=== PATIENT | male | born 1980 | race Caucasian/White ===

== ENCOUNTER 2017-10-20 14:30 | Outpatient (RCR) | payer OTHER, SELFPAY ==
--- NOTE | 2017-09-08 11:36 | OT.OP.EVAL ---
Visit Care Team Role Provider Type Coel Purcell MD Attending Provider Non-Staff Primary Care Provider Specialty: Family Practice Address: [address] [place] [address], [id number] Email: Occupational Therapy Initial Evaluation OT Outpatient Adult Evaluation Start: 09/07/17 15:05 Freq: Status: Active Protocol: Document 09/07/17 15:06 AMS (Rec: 09/07/17 15:31 AMS [email or web address]) General Information Referral Referring Physician Cole Purcell MD Reason for Referral 37 year-old male with CVA, right-sided hemiparesis Visit Information Visit Number N/A Plan of Care Dates 09/07/17- 11/30/17 Insurance Information Billing Code Limitations - see paper chart Identification Identification Confirmed Yes Medical Information Medical History Patient is a 37 year-old male referred to outpatient OT secondary to CVA with subsequent right-sided hemiparesis. Patient reported sudden onset of R UE and LE weakness August 21, 2017. At [facility] CT was completed which showed nothing. Thus, patient was transferred to [place] in [place], where he underwent a MRI which also did not show anything. Patient is being followed by a neurologist. Patient to have Lumbar MRI to rule out MS. Outpatient Medical History Form was completed by patient on date of initial evaluation; (+) for back pain, dizziness, hearing problems, zygomatic arch surgery, and stroke. R hand dominance was also indicated on form. Please refer to paper chart for additional details. Pt also listed medications on Health History form (Lipitor, Aspirin, Advair - for allergy induced asthma). Previous Therapy Previous Therapy/Therapies Yes: Outpt PT eval completed Current Therapy/Therapies Outpt PT; outpt FUEL OPERATOR evaluation scheduled for 09/08/17 Social Information Social History Patient resides with his and kids. 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 Therapy Pain Assessment Pain When Pain Assessed pre-tx Pain Present Pain Present Pain Reported Location Right Posterior Leg Scale Used 3-4/10 numeric scale Right Anterior Leg Scale Used 2-3/10 numeric scale Right Posterior Arm Scale Used 1/10 numeric scale Right Anterior Arm Scale Used 1-2/10 numeric scale Posterior Neck Scale Used 1-2/10 numeric scale ADLs Overall Ability Comments WFL w/ use of compensatory strategies. IADLs Overall Function Basic IADLs Mildly Impaired Comments Fatigue (taking naps); increased concentration Driving Driving Ability Independently driving. Reported increased focus on driving. 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 Skill Level Impaired Vocation Comments Reported increased fatigue ( naps after work on daily basis ); reported decreased motor coordination/planning w/ use of virtual reality based painting exercise; reported decreased ability to complete motor plans while teaching the class. Meaningful Activities Meaningful Abilities Impacted by fatigue. Impacted by balance. Increased concentration required. Skill Level Impaired Vision Vision Comments Denied any visual changes Range of Motion Upper Extremity/Lower Extremity Upper Extremity Functional Limits Within Functional Limits Neurological Assessment - Adult Coordination Finger to Nose Test R UE Impaired w/ movement and w/ stabilization Comments Joint Limb Matching - relative to Joint Sense (UE Limb Matching) 5/5 trials Jerky movements observed w/ R UE w/ Slow Movements. Some asymmetry also noted with coordinating UEs; R moving faster than left. Sensation Assessment Comments Summary Comments Patient reports abnormal sensation of the right upper extremity; reported 'heaviness ' and sensation of 'increase in temperature of the right arm even though to the touch it was cold'. Patient reports R LE worse than R UE relative to sensation. Patient denied change in ability to sense pain, light touch, or temperature (when compared to PLOF). Fine Motor Handedness Hand Preference Right Hand Use Consistency Within Tasks Right Scale 100% Hand Use Consistency Across Tasks Right Scale 100% Hand Fatigue Yes Release of Objects Right Observations Increased focus required w/ motor planning w/ right UE. (+ ) fatigue reported and observed w/ > 5 reps Reaching for Objects Observations Increased focus required w/ motor planning w/ right UE. (+ ) fatigue reported and observed w/ > 5 reps Motor Planning Level of Impairment 25% Impaired Handwriting Pencil Grasp Minimally Impaired Comments Increased focus required w/ motor planning Writes First Name Yes Writes Last Name Yes All upper case letters are formed Yes correctly Numbers 1-10 are formed correctly Yes Letters are oriented correctly on the 100% of the time lines Letters are legible 100% of the time Paper stabilization with contralateral Yes: WNL hand Functional Wrist/Hand Scan Hand Side [id number] Thumb to All Fingers Pinch Yes/No Yes Comment WFL with and without visual feedback; slightly off B w/ 4/ 5 digits Shoulder Strength Shoulder Manual Muscle Testing Left Flexion 5 Normal Extension 5 Normal Abduction (C5) 5 Normal Adduction 5 Normal External Rotation 5 Normal Internal Rotation 5 Normal Right Flexion 4 Good Extension 4 Good Abduction (C5) 4 Good Adduction 4+ Good+ External Rotation 3+ Fair+ Internal Rotation 4 Good Global Risk Management Director/Hand Strength Global Risk Management Director/Hand Strength Left Global Risk Management Director Dynamometer II 106.0 Comments 35-39 year-old males = 112.9 + /- 21.7 Interpretation = Slightly below the mean when compared to same-aged male peers Right Global Risk Management Director Dynamometer II 67.3 Comments 35-39 year-old males = 119.7 + /- 24.0 Interpretation = 2 SD below the mean when compared to same -aged male peers Goals Treatment Treatment HEP established. Written instructions provided. Patient denied questions. Focus on functional motor planning w/ use of work tools w/ and without visual feedback, as well as functional motor planning of the right upper extremity while engaged in conversations w/ family members (children, ). Short Term Goals Short Term Goals 1. Patient will average > 95.7 pounds of force with the right hand with dynamometer testing. 2. Patient will be able to execute symmetrical, smooth motor movements of the upper extremities x 10 trials ( taking 5 seconds or more to move upper extremities outwards and 5 seconds or more to move upper extremities inwards) without errors and/or use of compensatory strategies. [facility] Goals Hardware Sales Assistant Goals 1. Based on patient's verbal report, patient will be able to complete all vocational tasks without difficulty which require motor planning of the right upper extremity (e.g., virtual spray painting of airplane). 2. 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 3. MMT 5/5 Right Shoulder ER 4. MMT 5/5 Right Shoulder Abduction 5. MMT 5/5 Right Shoulder Adduction 6. MMT 5/5 Right Shoulder Flexion 7. MMT 5/5 Right Shoulder Extension 8. MMT 5/5 Right IR 9. Patient will be mod I with HEP. Assessment/Plan Assessment Patient Response Good Rehabilitation Potential Good Impairments Identified Balance Coordination/Dexterity Functional Activities Motor Function Pain Weakness Recreational Activities Meaningful Activities Stiffness Work Capacity Motor Planning Eye-Hand Coordination Additional Impairments Identified Executive function skills Treatment Assessment Patient is a 37 year-old male referred to outpatient OT secondary to CVA with subsequent right-sided hemiparesis. PMH: (+) for back pain, dizziness, hearing problems, zygomatic arch surgery, and stroke. R hand dominant. PLOF: Independent with all BADLS and IADLS. Findings: Decreased right upper extremity strength; decreased right filter cleaner strength; decreased motor planning of the right UE; decreased kinesthetic awareness of right upper extremity; fatigue; decreased activity tolerance; pain/discomfort of posterior neck and right upper and lower extremities; abnormal sensation of the right upper extremity; and decreased functional independence when compared to prior level of function. Outpatient OT recommended to address the above areas to maximize patient's success and efficiency with active participation in meaningful day-to-day activities in the home, community, and work environments. Home Exercise Program HEP established. Written instructions provided. Patient denied questions. Focus on functional motor planning w/ use of work tools w/ and without visual feedback, as well as functional motor planning of the right upper extremity while engaged in conversations w/ family members (children, ). Reviewed with Patient Goals Home Exercise Program Patient Understanding Good Plan Comment 12 weeks Comment Once every 2 weeks; increase as needed Therapeutic Contents Client Education Cognitive Skills Development Functional Activities Home Exercise Program Manual Therapy Education Neurodevelopment Treatment Neuromuscular Re-Education Self-Care Stretching/Flexibility Activities Therapeutic Activities Therapeutic Exercises Modalities Modalities As Needed As Described Patient Instruction Home Exercise Program Plan of Care Questions/Concerns Other Comment Consult w/ outpt PT and FUEL OPERATOR Please Sign and Return: I have reviewed this Plan of Care and certify that the skilled therapy services above are required to meet the patient?s needs. Physician Signature Date Printed Name and Credentials Clinical Instructor Signature Printed Name and Credentials
--- NOTE | 2017-09-21 09:21 | OT.OP.TRT ---
Visit Care Team Role Provider Type Cole Purcell MD Attending Provider Non-Staff Primary Care Provider Specialty: Family Practice Address: [address] [place] [address], [id number] Email: Occupational Therapy Treatment Note OT Outpatient Treatment Note - Adult Start: 09/07/17 15:05 Freq: Status: Active Protocol: Document 09/20/17 15:38 AMS (Rec: 09/20/17 15:39 AMS [email or web address]) OT Outpatient Adult Treatment Note Session Time Visit Start Time 14:35 Visit Stop Time 15:20 Total Visit Minutes 45 Visit Information Visit Number N/A Plan of Care Dates 09/07/17- 11/30/17 Insurance Information Billing Code Limitations - see paper chart Setting Treatment Setting Outpatient Care Visit Type Note Type Treatment Note General Information General Information Patient is a 37 year-old male referred to outpatient OT secondary to CVA with subsequent right-sided hemiparesis. MH: (+) for back pain, dizziness, hearing problems, zygomatic arch surgery, and stroke. R hand dominant. PLOF: Independent with all BADLS and IADLS. - Subjective Identification Type Name Identification Reconciled With Medical Record Observations I haven't been taking naps lately. I have been working with the 3D oil painter and it seems to be getting better. This arm is just weak per pt. I am still waiting to get a phone call about my brace. Patient/Caregiver Compliance with Home Good Exercise Program - Objective Objective Measurements Please see below for progress towards meeting established OT goals. Improving coordination noted w/ finger taps w/ and without visual feedback; (-) errors noted on this date w/ increased speed x 5 cycles. Continued fatigue and increased concentration w/ motor planning of the R UE; decreased R UE strength, as noted at time of evaluation. Upgraded HEP. Short Term Goals 1. Patient will average > 95.7 pounds of force with the right hand with dynamometer testing. 2. Patient will be able to execute symmetrical, smooth motor movements of the upper extremities x 10 trials ( taking 5 seconds or more to move upper extremities outwards and 5 seconds or more to move upper extremities inwards) without errors and/or use of compensatory strategies. 09/20/17= 25% met Mcfp Goals 1. Based on patient's verbal report, patient will be able to complete all vocational tasks without difficulty which require motor planning of the right upper extremity (e.g., virtual spray painting of airplane). 09/20/17= 25% met 2. 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 09/20/17= 25% met 3. MMT 5/5 Right Shoulder ER 4. MMT 5/5 Right Shoulder Abduction 5. MMT 5/5 Right Shoulder Adduction 6. MMT 5/5 Right Shoulder Flexion 7. MMT 5/5 Right Shoulder Extension 8. MMT 5/5 Right IR 9. Patient will be mod I with HEP. - Treatment 3 Descriptor HEP written and visual instructions provided sh abd hor abd & ER recommended continue w/ hor abd/flies supine Complexity Upgraded 2 Descriptor Motor planning - limb awareness 1 Descriptor Eye-hand coordination - Trampoline w/ 500 gram ball 2 sets of 10 each exercise R <-> L R square CW CCW R --> L <-> R pattern L throw R catch Completed in frontal plane and w/ body turned 90 degrees L Exercises 5 Descriptor Body blade (small size) In front (10 sec) To the R (10 sec) Moving w/ sh abd Moving w/ sh flex Side Right Body Position Standing Sets 1 Repetitions 3 4 Descriptor Hor Abd Side Right Body Position Sitting Sets 1 Repetitions 10 Resistance 3# DB 3 Descriptor Hor Abd & ER Side Right Body Position Sitting Sets 2 Repetitions 10 Resistance 3# DB 2 Descriptor Sh Abduction Side Right Body Position Sitting Sets 2 Repetitions 10 Resistance 3# DB 1 Descriptor Arm pulleys Side Both Body Position Sitting Time 3 minutes - Assessment Patient Response to Treatment Good Rehab Potential Good Impairments Identified Balance Body Mechanics Coordination/Dexterity Flexibility Functional Activities Motor Function Weakness Range of Motion Recreational Activities Meaningful Activities Stiffness Motor Planning Eye-Hand Coordination Assessment of Overall Progress Improving Assessment of Improvement Improving fine motor planning and awareness of fingers in space; this is evidenced by no errors w/ finger taps w/ no visual feedback provided. Decreased UE strength noted and continued need to concentrate particularly w/ motor planning of the R UE to the right of the body. HEP upgraded on this date and pt denied questions. Home Exercise Program Written and visual instructions provided. Upgraded HEP. HEP to include strengthening (sh abd, hor abd & ER, hor abd). Recommend continued use of 3D oil painter at work w/ focus on use to right of body. Reviewed with Patient/Caregiver Goals Progress Being Made Home Exercise Program Patient/Caregiver Understanding Good - Plan Therapy Recommendations Continue with Current Program Advance per Rehabilitation Protocol Additional Therapy Recommendations Consult w/ PT & DIRECT MARKETING MANAGER
--- NOTE | 2017-10-04 15:32 | OT.OP.TRT ---
Visit Care Team Role Provider Type Cole Purcell MD Attending Provider Non-Staff Primary Care Provider Specialty: Family Practice Address: [address] [place] [address], [id number] Email: Occupational Therapy Treatment Note OT Outpatient Treatment Note - Adult Start: 09/07/17 15:05 Freq: Status: Active Protocol: Document 10/04/17 15:05 AMS (Rec: 10/04/17 15:32 AMS [email or web address]) OT Outpatient Adult Treatment Note Session Time Visit Start Time 14:35 Visit Stop Time 15:15 Total Visit Minutes 40 Visit Information Visit Number N/A Plan of Care Dates 09/07/17- 11/30/17 Insurance Information Billing Code Limitations - see paper chart Setting Treatment Setting Outpatient Care Visit Type Note Type Treatment Note General Information General Information Patient is a 37 year-old male referred to outpatient OT secondary to CVA with subsequent right-sided hemiparesis. PMH: (+) for back pain, dizziness, hearing problems, zygomatic arch surgery, and stroke. R hand dominant. PLOF: Independent with all BADLS and IADLS. - Subjective Identification Type Name Identification Reconciled With Medical Record Observations My left arm is still helping my right arm without push-ups per Shiva. 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 Patient/Caregiver Compliance with Home Good Exercise Program - Objective Objective Measurements Please see below for progress towards meeting established OT goals. Improving right UE strength. Upgraded HEP and therapeutic exercises. Clearance Cutter/Hand Strength Clearance Cutter/Hand Strength Right Clearance Cutter Dynamometer II 77.7 Comments Interpretation = 2 SD below the mean when compared to same -aged male peers *Initial = 67.3# of force 35-39 year-old males = 119.7 + /- 24.0 Interpretation = 2 SD below the mean when compared to same -aged male peers Short Term Goals 1. Patient will average > 95.7 pounds of force with the right hand with dynamometer testing. 10/04/17= avg 77.7# of force w/ R hand 2. Patient will be able to execute symmetrical, smooth motor movements of the upper extremities x 10 trials ( taking 5 seconds or more to move upper extremities outwards and 5 seconds or more to move upper extremities inwards) without errors and/or use of compensatory strategies. 09/20/17= 25% met Rn Building Goals 1. Based on patient's verbal report, patient will be able to complete all vocational tasks without difficulty which require motor planning of the right upper extremity (e.g., virtual spray painting of airplane). 10/04/17= 50% met 2. 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 10/04/17= 50% met 3. MMT 5/5 Right Shoulder ER 4. MMT 5/5 Right Shoulder Abduction 5. MMT 5/5 Right Shoulder Adduction 6. MMT 5/5 Right Shoulder Flexion 7. MMT 5/5 Right Shoulder Extension 8. MMT 5/5 Right IR 9. Patient will be mod I with HEP. 10/04/17= HEP upgraded - Treatment 3 Descriptor HEP Dynamic body weight exercises Chair dips (L <-> R) Shoulder plank weight shift Shoulder plank box Shoulder plank box w/ bosu Side plank R Bosu plank stabilization 2 x 10 Complexity Upgraded 1 Descriptor Eye-hand coordination - Trampoline Seated R <--> L w/ R hand 1000 gm 3 x 10 Square w/ R hand 500 gm 2 x 10 ; 1000 gm 1 x 10 Complexity Upgraded Exercises 6 Descriptor Chair dips (L <-> R) 1 x 10 Shoulder plank weight shift 1 x 10 Shoulder plank box 1 x 10 Shoulder plank box w/ bosu 1 x 5 Side plank 1 x 5 Bosu plank stabilization 2 x 10 Complexity Upgraded 1 Descriptor UEB Side Right Body Position Sitting Time 4 minutes; 1 minute Both Complexity Upgraded - Assessment Patient Response to Treatment Good Rehab Potential Good Impairments Identified Balance Body Mechanics Coordination/Dexterity Flexibility Functional Activities Motor Function Weakness Range of Motion Recreational Activities Meaningful Activities Stiffness Motor Planning Eye-Hand Coordination Assessment of Overall Progress Improving Assessment of Improvement Improving activity tolerance; this is evidenced by not ' needing to take naps anymore'. 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 Improving right UE strength, as evidenced by increased attempts at push-ups in the home environment; however, increased reliance on L UE for body weight exercises. Initiated exercises to support active engagement of R UE in exercises and increased weight bearing onto the right UE. Home Exercise Program HEP. Refer to treatment section of note for additional details. Patient denied questions. Reviewed with Patient/Caregiver Goals Progress Being Made Home Exercise Program Patient/Caregiver Understanding Good - Plan Therapy Recommendations Continue with Current Program Advance per Rehabilitation Protocol Additional Therapy Recommendations Consult w/ PT & BIAS CUTTER
--- NOTE | 2017-10-20 15:52 | OT.OP.TRT ---
Visit Care Team Role Provider Type Cole Purcell MD Attending Provider Non-Staff Primary Care Provider Specialty: Family Practice Address: [address] [place] [address], [id number] Email: Occupational Therapy Treatment Note OT Outpatient Treatment Note - Adult Start: 09/07/17 15:05 Freq: Status: Active Protocol: Document 10/20/17 15:29 AMS (Rec: 10/20/17 15:51 AMS [email or web address]) OT Outpatient Adult Treatment Note Session Time Visit Start Time 14:30 Visit Stop Time 15:18 Total Visit Minutes 48 Visit Information Visit Number N/A Plan of Care Dates 09/07/17- 11/30/17 Insurance Information Billing Code Limitations - see paper chart Setting Treatment Setting Outpatient Care Visit Type Note Type Treatment Note General Information General Information Patient is a 37 year-old male referred to outpatient OT secondary to CVA with subsequent right-sided hemiparesis. PMH: (+) for back pain, dizziness, hearing problems, zygomatic arch surgery, and stroke. R hand dominant. PLOF: Independent with all BADLS and IADLS. - Subjective Identification Type Name Identification Reconciled With Medical Record Observations I am able to do 18 to 20 push -ups now before having to stop . I feel as if it is partly my core that prevents me from doing more push-ups per Shiva. PT is working on my balance and knowing where I am without my vision. Patient/Caregiver Compliance with Home Good Exercise Program - Objective Objective Measurements Please see below for progress towards meeting established OT goals. Improving right UE strength. Improving trunk/core strength from time of initial evaluation. Per patient, he is able to maintain each plank position x 1 minute prior to fatigue and complete 18 to 20 push-ups prior to fatigue. Patient is executing push-ups, planks, overhead tricep extension, tricep kickbacks, bicep curls, bench press, flies, sh flexion and sh abduction. Patient denied execution of ER, posterior deltoid, or shoulder press exercises at this time. Upgraded HEP to address these areas. Short Term Goals 1. Patient will average > 95.7 pounds of force with the right hand with dynamometer testing. 10/04/17= avg 77.7# of force w/ R hand 2. Patient will be able to execute symmetrical, smooth motor movements of the upper extremities x 10 trials ( taking 5 seconds or more to move upper extremities outwards and 5 seconds or more to move upper extremities inwards) without errors and/or use of compensatory strategies. 10/20/17= 50% met 3. Patient will be able to execute 25 standard push-ups without rest breaks as observed on 1 treatment session, without complaints of pain/discomfort and/or use of compensatory strategies. 10/20= 50% met [facility] Assistant Director Goals 1. Based on patient's verbal report, patient will be able to complete all vocational tasks without difficulty which require motor planning of the right upper extremity (e.g., virtual spray painting of airplane). 10/20/17= 50% met 2. 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 10/20/17= 50% met 3. MMT 5/5 Right Shoulder ER. 10/20/17= 25% met 4. MMT 5/5 Right Shoulder Abduction. 10/20/17= 25% met 5. MMT 5/5 Right Shoulder Adduction. 10/20/17= 50% met 6. MMT 5/5 Right Shoulder Flexion. 10/20/17= 50% met 7. MMT 5/5 Right Shoulder Extension. 10/20/17= 50% met 8. MMT 5/5 Right IR. 10/20/17= 50% met 9. Patient will be mod I with HEP. 10/20/17= HEP upgraded - Treatment 3 Descriptor HEP ER w/ sh press Trunk flex w/ 't' Plank - 1 leg/movement Complexity Upgraded 2 Descriptor Motor planning - limb awareness 1 Descriptor Eye-hand coordination - Trampoline Seated R <--> L w/ R hand 1000 gm 3 x 10 Square w/ R hand 500 gm 2 x 10 ; 1000 gm 1 x 10 Complexity Upgraded Exercises 6 Descriptor Plank-1 leg 1x5 Bosu Plank Box 2x10 Ther Ball push-ups 2x10 Complexity Upgraded 3 Descriptor Hor Abd & ER w/ Sh Press Side Both Body Position Standing Sets 4 Repetitions 5 Time 15# DB each Complexity Upgraded 2 Descriptor Post Delt 't' w/ trunk flex Side Both Body Position Standing Sets 1 Repetitions 10 Resistance 15# DB each Complexity Upgraded 1 Descriptor UEB Side Both Body Position Sitting Time x 5 minutes Complexity No Change - Assessment Patient Response to Treatment Good Rehab Potential Good Impairments Identified Balance Body Mechanics Coordination/Dexterity Flexibility Functional Activities Motor Function Weakness Range of Motion Recreational Activities Meaningful Activities Stiffness Motor Planning Eye-Hand Coordination Assessment of Overall Progress Improving Assessment of Improvement Overall improving trunk/core and R UE strength compared to initial evaluation. However, decreased trunk/core and R UE strength when compared to PLOF . Decreased R UE strength out of typical UE kylee pattern; thus, education completed and new exercises introduced to address these areas of weakness. Per patient, decreased trunk/core strength impacting ability to execute push-ups > 18 to 20 in the home environment. Discussed additional options to address trunk/core in plank position with decreasing LE MAKSIM and moving outside of MAKSIM, as well as tucking of knees w/ therapeutic ball. Home Exercise Program HEP. Refer to treatment section of note for additional details. Patient denied questions. Reviewed with Patient/Caregiver Goals Progress Being Made Home Exercise Program Patient/Caregiver Understanding Good - Plan Therapy Recommendations Continue with Current Program Advance per Rehabilitation Protocol Additional Therapy Recommendations Consult w/ PT & BRAKE REPAIR MECHANIC
--- NOTE | 2017-12-03 08:05 | OT.OP.DC ---
Visit Care Team Role Provider Type Cole Purcell MD Attending Provider Non-Staff Primary Care Provider Address: [address] [place] [address], [place], [address] Email: OT Outpatient OT Outpatient Adult Evaluation Start: 09/07/17 15:05 Freq: Status: Active Protocol: Document 09/07/17 15:06 AMS (Rec: 09/07/17 15:31 AMS [email or web address]) General Information Visit Information Visit Number N/A Plan of Care Dates 09/07/17- 11/30/17 Insurance Information Billing Code Limitations - see paper chart Referral Referring Physician Cole Purcell MD Reason for Referral 37 year-old male with CVA, right-sided hemiparesis Identification Identification Confirmed Yes Medical Information Medical History Patient is a 37 year-old male referred to outpatient OT secondary to CVA with subsequent right-sided hemiparesis. Patient reported sudden onset of R UE and LE weakness August 21, 2017. At [facility] CT was completed which showed nothing. Thus, patient was transferred to [place] in [facility] where he underwent a MRI which also did not show anything. Patient is being followed by a neurologist. Patient to have Lumbar MRI to rule out MS. Outpatient Medical History Form was completed by patient on date of initial evaluation; (+) for back pain, dizziness, hearing problems, zygomatic arch surgery, and stroke. R hand dominance was also indicated on form. Please refer to paper chart for additional details. Pt also listed medications on Health History form (Lipitor, Aspirin, Advair - for allergy induced asthma). Previous Therapy Previous Therapy/Therapies Yes: Outpt PT eval completed Current Therapy/Therapies Outpt PT; outpt CABLE SYSTEMS INSTALLER evaluation scheduled for 09/08/17 Social Information Social History Patient resides with his and kids. 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 Therapy Pain Assessment Pain When Pain Assessed pre-tx Pain Present Pain Present Pain Reported Location Right Posterior Leg Scale Used 3-4/10 numeric scale Right Anterior Leg Scale Used 2-3/10 numeric scale Right Posterior Arm Scale Used 1/10 numeric scale Right Anterior Arm Scale Used 1-2/10 numeric scale Posterior Neck Scale Used 1-2/10 numeric scale ADLs Overall Ability Comments WFL w/ use of compensatory strategies. IADLs Overall Function Basic IADLs Mildly Impaired Comments Fatigue (taking naps); increased concentration Driving Driving Ability Independently driving. Reported increased focus on driving. 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 Skill Level Impaired Vocation Comments Reported increased fatigue ( naps after work on daily basis ); reported decreased motor coordination/planning w/ use of virtual reality based painting exercise; reported decreased ability to complete motor plans while teaching the class. Meaningful Activities Meaningful Abilities Impacted by fatigue. Impacted by balance. Increased concentration required. Skill Level Impaired Vision Vision Comments Denied any visual changes Range of Motion Upper Extremity/Lower Extremity Upper Extremity Functional Limits Within Functional Limits Neurological Assessment - Adult Coordination Finger to Nose Test R UE Impaired w/ movement and w/ stabilization Comments Joint Limb Matching - relative to Joint Sense (UE Limb Matching) 5/5 trials Jerky movements observed w/ R UE w/ Slow Movements. Some asymmetry also noted with coordinating UEs; R moving faster than left. Sensation Assessment Comments Summary Comments Patient reports abnormal sensation of the right upper extremity; reported 'heaviness ' and sensation of 'increase in temperature of the right arm even though to the touch it was cold'. Patient reports R LE worse than R UE relative to sensation. Patient denied change in ability to sense pain, light touch, or temperature (when compared to PLOF). Fine Motor Handedness Hand Preference Right Hand Use Consistency Within Tasks Right Scale 100% Hand Use Consistency Across Tasks Right Scale 100% Hand Fatigue Yes Release of Objects Right Observations Increased focus required w/ motor planning w/ right UE. (+ ) fatigue reported and observed w/ > 5 reps Reaching for Objects Observations Increased focus required w/ motor planning w/ right UE. (+ ) fatigue reported and observed w/ > 5 reps Motor Planning Level of Impairment 25% Impaired Handwriting Pencil Grasp Minimally Impaired Comments Increased focus required w/ motor planning Writes First Name Yes Writes Last Name Yes All upper case letters are formed Yes correctly Numbers 1-10 are formed correctly Yes Letters are oriented correctly on the 100% of the time lines Letters are legible 100% of the time Paper stabilization with contralateral Yes: WNL hand Functional Wrist/Hand Scan Hand Side [id number] Thumb to All Fingers Pinch Yes/No Yes Comment WFL with and without visual feedback; slightly off B w/ 4/ 5 digits Goals Treatment Treatment HEP established. Written instructions provided. Patient denied questions. Focus on functional motor planning w/ use of work tools w/ and without visual feedback, as well as functional motor planning of the right upper extremity while engaged in conversations w/ family members (children, ). Short Term Goals Short Term Goals 1. Patient will average > 95.7 pounds of force with the right hand with dynamometer testing. 2. Patient will be able to execute symmetrical, smooth motor movements of the upper extremities x 10 trials ( taking 5 seconds or more to move upper extremities outwards and 5 seconds or more to move upper extremities inwards) without errors and/or use of compensatory strategies. Mcfp Goals Mcfp Goals 1. Based on patient's verbal report, patient will be able to complete all vocational tasks without difficulty which require motor planning of the right upper extremity (e.g., virtual spray painting of airplane). 2. 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 3. MMT 5/5 Right Shoulder ER 4. MMT 5/5 Right Shoulder Abduction 5. MMT 5/5 Right Shoulder Adduction 6. MMT 5/5 Right Shoulder Flexion 7. MMT 5/5 Right Shoulder Extension 8. MMT 5/5 Right IR 9. Patient will be mod I with HEP. Assessment/Plan Assessment Patient Response Good Rehabilitation Potential Good Impairments Identified Balance Coordination/Dexterity Functional Activities Motor Function Pain Weakness Recreational Activities Meaningful Activities Stiffness Work Capacity Motor Planning Eye-Hand Coordination Additional Impairments Identified Executive function skills Treatment Assessment Patient is a 37 year-old male referred to outpatient OT secondary to CVA with subsequent right-sided hemiparesis. PMH: (+) for back pain, dizziness, hearing problems, zygomatic arch surgery, and stroke. R hand dominant. PLOF: Independent with all BADLS and IADLS. Findings: Decreased right upper extremity strength; decreased right web site administrator strength; decreased motor planning of the right UE; decreased kinesthetic awareness of right upper extremity; fatigue; decreased activity tolerance; pain/discomfort of posterior neck and right upper and lower extremities; abnormal sensation of the right upper extremity; and decreased functional independence when compared to prior level of function. Outpatient OT recommended to address the above areas to maximize patient's success and efficiency with active participation in meaningful day-to-day activities in the home, community, and work environments. Home Exercise Program HEP established. Written instructions provided. Patient denied questions. Focus on functional motor planning w/ use of work tools w/ and without visual feedback, as well as functional motor planning of the right upper extremity while engaged in conversations w/ family members (children, ). Reviewed with Patient Goals Home Exercise Program Patient Understanding Good Plan Comment 12 weeks Comment Once every 2 weeks; increase as needed Therapeutic Contents Client Education Cognitive Skills Development Functional Activities Home Exercise Program Manual Therapy Education Neurodevelopment Treatment Neuromuscular Re-Education Self-Care Stretching/Flexibility Activities Therapeutic Activities Therapeutic Exercises Modalities Modalities As Needed As Prescribed Patient Instruction Home Exercise Program Plan of Care Questions/Concerns Other Comment Consult w/ outpt PT and CABLE SYSTEMS INSTALLER Sensory Assessment Sensory Profile2 OT Outpatient Muscle Testing Start: 09/07/17 15:05 Freq: Status: Active Protocol: Document 12/03/17 08:02 AMS (Rec: 12/03/17 08:05 AMS [email or web address]) Shoulder Strength Shoulder Manual Muscle Testing Left Flexion 5 Normal Extension 5 Normal Abduction (C5) 5 Normal Adduction 5 Normal External Rotation 5 Normal Internal Rotation 5 Normal Right Flexion 4 Good Extension 4 Good Abduction (C5) 4 Good Adduction 4+ Good+ External Rotation 3+ Fair+ Internal Rotation 4 Good Packaging Machine Supplies Distributor/Hand Strength Packaging Machine Supplies Distributor/Hand Strength Left Packaging Machine Supplies Distributor Dynamometer II 106.0 Comments 35-39 year-old males = 112.9 + /- 21.7 Interpretation = Slightly below the mean when compared to same-aged male peers Right Packaging Machine Supplies Distributor Dynamometer II 77.7 Comments Interpretation = 2 SD below the mean when compared to same -aged male peers *Initial = 67.3# of force 35-39 year-old males = 119.7 + /- 24.0 Interpretation = 2 SD below the mean when compared to same -aged male peers OT Outpatient Treatment Note - Adult Start: 09/07/17 15:05 Freq: Status: Active Protocol: Document 12/03/17 08:02 AMS (Rec: 12/03/17 08:05 AMS [email or web address]) OT Outpatient Adult Treatment Note Setting Treatment Setting Outpatient Care Visit Type Note Type Discharge Summary General Information General Information Patient is a 37 year-old male referred to outpatient OT secondary to CVA with subsequent right-sided hemiparesis. PMH: (+) for back pain, dizziness, hearing problems, zygomatic arch surgery, and stroke. R hand dominant. PLOF: Independent with all BADLS and IADLS. - Subjective Observations Discharge per patient request. - Objective Short Term Goals DISCHARGE PER PATIENT REQUEST. ALL GOALS DISCHARGED. 1. Patient will average > 95.7 pounds of force with the right hand with dynamometer testing. 10/04/17= avg 77.7# of force w/ R hand 2. Patient will be able to execute symmetrical, smooth motor movements of the upper extremities x 10 trials ( taking 5 seconds or more to move upper extremities outwards and 5 seconds or more to move upper extremities inwards) without errors and/or use of compensatory strategies. 10/20/17= 50% met 3. Patient will be able to execute 25 standard push-ups without rest breaks as observed on 1 treatment session, without complaints of pain/discomfort and/or use of compensatory strategies. 10/20= 50% met Quality Assurance Supervisor Chassis Goals DISCHARGE PER PATIENT REQUEST. ALL GOALS DISCHARGED. 1. Based on patient's verbal report, patient will be able to complete all vocational tasks without difficulty which require motor planning of the right upper extremity (e.g., virtual spray painting of airplane). 10/20/17= 50% met 2. 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 10/20/17= 50% met 3. MMT 5/5 Right Shoulder ER. 10/20/17= 25% met 4. MMT 5/5 Right Shoulder Abduction. 10/20/17= 25% met 5. MMT 5/5 Right Shoulder Adduction. 10/20/17= 50% met 6. MMT 5/5 Right Shoulder Flexion. 10/20/17= 50% met 7. MMT 5/5 Right Shoulder Extension. 10/20/17= 50% met 8. MMT 5/5 Right IR. 10/20/17= 50% met 9. Patient will be mod I with HEP. 10/20/17= HEP upgraded - - Assessment Assessment of Improvement Discharge from outpatient OT per patient request. Appropriate discharge paperwork to be completed. Therapist to follow-up as appropriate/as deemed necessary by patient's PCP. - Plan Therapy Recommendations Discharge from Occupational Therapy Additional Therapy Recommendations d/c per patient request
== END 2018-02-22 10:36 ==
LOC: OT 14:30
PROVIDERS: PCP General Practice; Visit Provider General Practice
DX: I63.9 Cerebral infarction, unspecified (principal)
CPT/HCPCS: 97110; 97112; 97165; 97530

== ENCOUNTER 2017-10-20 15:30 | Outpatient (RCR) | payer OTHER, SELFPAY | END 2017-10-21 11:06 | LOC: SP 15:30 | PROVIDERS: PCP General Practice; Visit Provider General Practice | DX: I63.9 Cerebral infarction, unspecified (principal) | CPT/HCPCS: 92507; 92522; 96105; 96125; 97127 ==

== ENCOUNTER 2017-10-31 20:44 | Emergency (ER) | payer OTHER, SELFPAY ==
[2017-10-31 20:47] VITALS: BP 128/79; PULSE 69; RESP 15; TEMP 37; O2SAT 97; BMI 30.2
--- NOTE | 2017-10-31 21:05 | ED.ALLEREA ---
HPI - Allergic Reaction General Chief complaint: Allergic Reaction Stated complaint: BEE STING RIGHT BICEP Time Seen by Provider: 10/31/17 21:04 Source: patient Mode of arrival: ambulatory Limitations: no limitations History of Present Illness HPI narrative: The patient was cutting brush at his home earlier today. He encountered a bee hive, and was stung on the right biceps. He has had many bee stings in the past. The amount of erythema and swelling to the site is far more extensive than he has experienced before. He has no history of bee sting allergy. He does have a history of exercise-induced asthma. He started wheezing after the sting, he alleviated the wheezing with a dose of Advair. He currently has no rash other than the erythema at the sting site. He has no airway tightness, chest pain or difficulty breathing. Related Data Home Medications Medication Instructions Recorded Confirmed Fexofenadine Hydrochloride 180 mg PO Q DAY #0 08/21/08 (Dahlia) CLOBETASOL PROPIONATE (TEMOVATE) #0 04/29/12 NYSTATIN/TRIAMCINOLONE ACETONI #0 04/29/12 (Nystatin-Triamcinolone Cream) Previous Rx's Medication Instructions Recorded prednisone 40 mg PO DAILY 5 Days tab 10/31/17 Allergies Allergy/AdvReac Type Severity Reaction Status Date / Time pseudoephedrine Allergy Unknown RASH Verified 10/31/17 20:52 [From [facility]] Review of Systems Review of Systems All systems reviewed & are unremarkable except as noted in HPI and below Constitutional Denies chills, Denies fever(s), Denies lethargy and Denies weakness ENT Ears, Nose, Mouth, and Throat: Denies change in voice, Denies neck pain, Denies sore throat and Denies throat swelling Cardiovascular Denies chest pain, Denies irregular heart rhythm, Denies lightheadedness, Denies palpitations, Denies dyspnea, Denies dyspnea on exertion and Denies orthopnea Respiratory Denies cough, Denies dyspnea, Denies dyspnea on exertion and Reports wheezing Gastrointestinal Gastrointestinal: Denies abdominal pain, Denies change in bowel habits, Denies diarrhea, Denies nausea and Denies vomiting Musculoskeletal Denies neck pain Integumentary/Breasts Reports as per HPI Neurologic Denies weakness Endocrine Denies palpitations Allergic/Immunologic Denies throat swelling and Reports wheezing [facility] Medical History Environmental allergies (Acute) Exercise-induced asthma (Acute) Social History Smoking Status: Current every day smoker Exam Initial Vital Signs Initial Vital Signs: Vital Signs Temperature 98.6 F 10/31/17 20:47 Pulse Rate 69 10/31/17 20:47 Respiratory Rate 15 10/31/17 20:47 Blood Pressure 128/79 H 10/31/17 20:47 Pulse Oximetry 97 10/31/17 20:47 Const General: cooperative and well developed Nutritional Appearance: well nourished Orientation: alert, awake, oriented x3 and not confused HENPA Mouth: oral mucosae normal, lip normal, tongue normal and oropharynx normal Eyes Conjunctivae: conjunctivae normal Neck Neck: No lymphadenopathy and other (No edema) Resp Effort & Inspection: normal respiratory effort, able to speak in complete sentences, no respiratory distress and no use of accessory muscles Auscultation: clear to auscultation bilaterally, no rales, no rhonchi and no wheezes Cardio Rate: regular rate Rhythm: regular rhythm Heart Sounds: no click, no gallops, no murmurs and no rubs Pulses: normal peripheral pulses Skin General: other (Significant erythema and edema to the right biceps at the sting site. No other erythema or rashes seen.) Course Vital Signs - 8 hr 10/31/17 20:47 Temperature 98.6 F Pulse Rate 69 Respiratory Rate 15 Blood Pressure 128/79 H Pulse Oximetry 97 Discharge Plan Departure Patient Disposition: Home, Self-Care Clinical Impression: Bee sting Instructions: DI for Insect Bites and Stings Activity Restrictions/Additional Instructions: Prednisone daily as prescribed. Benadryl every 4-6 hours as needed for itching. Return to the ER for any difficulty breathing or airway tightness. Prescriptions: New prednisone 20 mg tablet 40 mg PO DAILY 5 Days RF: 0 No Action Fexofenadine Hydrochloride (Dahlia) 180 mg PO Q DAY Qty: 0 RF: 0 CLOBETASOL PROPIONATE (TEMOVATE) Qty: 0 RF: 0 NYSTATIN/TRIAMCINOLONE ACETONI (Nystatin-Triamcinolone Cream) Qty: 0 RF: 0
[2017-10-31] MEDS: predniSONE 20 MG TABLET 60 MG PO (21:16)
== END 2017-10-31 21:26 | disposition home or self-care (01) ==
PROVIDERS: Emergency Provider Emergency Medicine; PCP General Practice
DX: S40.861A Insect bite (nonvenomous) of right upper arm, initial encounter (principal); T63.441A Toxic effect of venom of bees, accidental (unintentional), initial encounter
CPT/HCPCS: 99282; 99283

== ENCOUNTER 2018-02-22 14:30 | Outpatient (RCR) | payer OTHER, SELFPAY ==
--- NOTE | 2017-09-03 09:28 | PT.OIE ---
Current Diagnoses Hemiplegia, unspecified affecting right dominant side (09/02/17) Foot drop, right foot (09/02/17) Other abnormalities of gait and mobility (09/02/17) Provider Visit Care Team Role Provider Type Michelle Godoy MD Other Providers Physician Specialty: Family Practice Address: [address] [place] [address], [id number] Email: [email or web address] Cole Purcell MD Attending Provider Non-Staff Specialty: Family Practice Address: [address] [place] [address], [id number] Email: Physical Therapy Initial Evaluation PT-OP-A Visit Information Start: 09/03/17 06:11 Freq: Status: Active Protocol: Document 09/02/17 09:45 AMB (Rec: 09/03/17 06:44 AMB [email or web address]) Out-Patient Physical Therapy Visit Information Visit Information Visit Type Initial Evaluation Visit Note 04/09 visits Visit Start Time 09:45 Visit Stop Time 10:30 Total Visit Minutes 45 Visit Number 1 Evaluation Information Evaluation Date 09/02/17 PT-OP-B Current Condition Start: 09/03/17 06:11 Freq: Status: Active Protocol: Document 09/02/17 09:45 AMB (Rec: 09/03/17 06:44 AMB [email or web address]) Current Condition History of Current Condition Onset Date 08/21/17 History of Current Condition The patient reports he had sudden onset R UE and LE weakness on August 21. Since then he feels that his arm is getting better, but his leg continues to be weak; he notices issues with foot drop. 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 His is a RN who does check his blood pressure. It was high while at the hospital, but otherwise has been around 120/80. He does admit to one dizzy spell on August 29 that lasted about a minute. It was in the evening, and he reports spinning and lightheadedness but it has not recurred. Prior Treatments and Tests He went to [facility] and had a CT, which did not show anything. He was transferred to [place] in [place], where he underwent MRI which also did not show anything. He is being followed by a neurologist, who suggested that he had a small CVA. Future Testing and Treatments Planned Lumbar MRI to rule out MS per patient. Treatment Goals Patient/Caregiver Goals Walk normally, ride bikes with his kids, be able to run 1.5 miles by November Functional Status Baseline Function- ADL's Independent Baseline Function- Mobility Independent Baseline Function- Recreation/Hobbies The patient was able to jog and bike without issue Current Functional Impairments (Reported) Functional Limitations- ADL's slower with dressing, unable to stand on one leg to perform lower body dressing Functional Limitations- Mobility/Gait Slow, difficult gait takes mental concentration not to catch his toes, no falls to the ground but many near misses where he catches himself due to catching his toes. Personal Factors Other Personal Factors That May Effect Pt's work schedule limits his Therapy/Recovery availability for appointments to afternoon. Busy working and with family limits his ability to rest. PT-OP-C Subjective Start: 09/03/17 06:11 Freq: Status: Active Protocol: Document 09/02/17 09:45 AMB (Rec: 09/03/17 06:44 AMB [email or web address]) Patient Questionnaires Lower Extremity Functional Scale LEFS Score 51 LEFS Impairment 20 to 39% Impaired (Score 48- 62) OP-PT Pain Assessment Comments Pain Comments Pt notes calf cramping at the end of the day, feels fatigue in leg more than pain. PT-OP-D Balance Start: 09/03/17 06:11 Freq: Status: Active Protocol: Document 09/02/17 09:45 AMB (Rec: 09/03/17 09:28 AMB [email or web address]) Balance Tests Single Limb Standing Single Limb- Right unable Single Limb- Left 5 seconds PT-OP-G Mobility & Gait Start: 09/03/17 06:11 Freq: Status: Active Protocol: Document 09/02/17 09:45 AMB (Rec: 09/03/17 09:28 AMB [email or web address]) OP Gait Assessment Assistive Devices Assistive Device None Factors Limiting Gait Function Factors Limiting Gait Function Decreased Strength Comments Gait Comments Steppage gait to compensate for foot drop, even with AFO pt continues to limp but it is significantly improved. Decreased weightbearing tolerance on the R, limits stance time on the right. Stair Climbing Evaluation Evaluation Level of Assist On Stairs Standby Assistance Devices Stair Climbing Assistive Devices Right Railing Technique/Endurance Stair Climbing Direction Ascend and Descend Stair Climbing Technique Step to Step Number of Steps Climbed 4 PT-OP-H Neuro Start: 09/03/17 06:11 Freq: Status: Active Protocol: Document 09/02/17 09:45 AMB (Rec: 09/03/17 09:28 AMB [email or web address]) Sensation Evaluation Location Details Right Leg Light Touch Intact/Normal Comments Summary Comments Pt able to distinguish light touch R vs L with eyes closed 100%, however pt subjectively notices diminished sensation distal to the knee. Deep Tendon Reflex & Clonus Assessment Ankle Clonus Right Clonus Assessment Absent Muscle Tone Tone Assessment Right Lower Extremity Flexor Tone Description Normal Extensor Tone Description Normal PT-OP-M Strength Start: 09/03/17 06:11 Freq: Status: Active Protocol: Document 09/02/17 09:45 AMB (Rec: 09/03/17 08:15 AMB [email or web address]) Hip Strength Hip Manual Muscle Testing Right Flexion (L2) 3 Fair Extension (S1) 4- Good- Abduction 4- Good- Left Reason Not Measured WFL Knee Strength Knee Manual Muscle Testing Right Flexion (S2) 4- Good- Extension (L3) 4- Good- Left Reason Not Measured WFL Ankle/Foot Strength Ankle and Foot Manual Muscle Testing Right Dorsiflexion (L4) 3+ Fair+ Plantarflexion (S1) 4- Good- Left Reason Not Measured WFL PT-OP-Q Treatments Start: 09/03/17 06:11 Freq: Status: Active Protocol: Document 09/02/17 09:45 AMB (Rec: 09/03/17 07:20 AMB [email or web address]) Therapeutic Exercises Supine Exercises 1 Supine Exercise Name SLR Side right Reps/Minutes 1x5 Sitting Exercises 1 Sitting Exercise Name Ankle alphabet Side right Standing Exercises 1 Standing Exercise Name double leg heel raise Side right Reps/Minutes 5 Comments trying to get equal weightbearing PT-OP-T Assessment and Plan Start: 09/03/17 06:11 Freq: Status: Active Protocol: Document 09/02/17 09:45 AMB (Rec: 09/03/17 07:19 AMB [email or web address]) Physical Therapy Assessment Rehab Potential Rehabilitation Potential Excellent Evaluation Complexity Number of Personal Factors/Comorbidities 1-2 Number of Body Systems Impaired 4 or More Clinical Presentation at Evaluation Evolving Impairments Impairments Balance Gait Sensation Strength Goals 3 Impairment Balance Short Term Goal (STG) The patient will show improved balance by performing single leg stance for 15 seconds without loss of balance. STG Duration 5 weeks Snf Goal (LTG) The patient will show improved balance by being able to get on and off his bicycle without assistance. LTG Duration 10 weeks 2 Impairment Strength Short Term Goal (STG) The patient will show improved strength by being able to perform 5 single leg heel raises on the right. STG Duration 5 weeks Snf Goal (LTG) The patient will show improved strength by performing a full squat. LTG Duration 10 weeks 1 Impairment Gait Short Term Goal (STG) The patient will ambulate in the community for 30 minutes ( curbs, hills, sand, gravel) without a steppage gait and without loss of balance. STG Duration 5 weeks Bioinformatics Scientist Goal (LTG) The patient will ascend and descend a flight of stairs with an alternating step pattern without requiring a railing. LTG Duration 10 weeks Assessment Summary Assessment Shiva presents with right lower extremity weakness at the ankle, knee, and hip. While he walks without assistive device, he has significant steppage gait and felt that the AFO that we tried in therapy was very helpful. He did not present with abnormal tone at eval, but does have sensation changes. Given his young age and previously high level of function, he will benefit from PT to progress his strength, balance, gait, and help him safely return to higher level activities. Physical Therapy Plan Frequency and Duration Frequency of Treatment 2x/Week Duration of Treatment 10 weeks Plan of Care Start Date 09/02/17 Plan of Care End Date 11/11/17 Therapeutic Interventions Therapeutic Interventions Aquatic Therapy Balance Training Gait Training Home Exercise Program Manual Therapy Neuromuscular Re-education Therapeutic Activities Therapeutic Exercises Modalities Cold Pack/Ice Massage Hot Packs Other Referrals/Consults Referrals/Consults Recommended AFO Next Visit Focus/Plan Next Note Type Treatment Note Next Visit Plan Check BP before and after exercise. Follow up on AFO. Progress HEP: calf stretch, squat, dynamic balance. Please Sign and Return: I have reviewed this Plan of Care and certify that the skilled therapy services above are required to meet the patient?s needs. Physician Signature Date Printed Name and Credentials Clinical Instructor Signature Printed Name and Credentials
--- NOTE | 2017-09-15 15:27 | PT.OTN ---
Current Diagnoses Hemiplegia, unspecified affecting right dominant side (09/15/17) Physical Therapy Treatment Note PT-OP-A Visit Information Start: 09/03/17 06:11 Freq: Status: Active Protocol: Document 09/15/17 14:00 AMB (Rec: 09/15/17 15:26 AMB [email or web address]) Out-Patient Physical Therapy Visit Information Visit Information Visit Type Treatment Note Visit Start Time 14:00 Visit Stop Time 14:45 Total Visit Minutes 45 Visit Number 2 Number of PEOPLESOFT BUSINESS ANALYST Visits 0 Evaluation Information Evaluation Date 09/02/17 PT-OP-B Current Condition Start: 09/03/17 06:11 Freq: Status: Active Protocol: Document 09/02/17 09:45 AMB (Rec: 09/03/17 06:44 AMB [email or web address]) Current Condition History of Current Condition Onset Date 08/21/17 History of Current Condition The patient reports he had sudden onset R UE and LE weakness on August 21. Since then he feels that his arm is getting better, but his leg continues to be weak; he notices issues with foot drop. 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 His is a RN who does check his blood pressure. It was high while at the hospital, but otherwise has been around 120/80. He does admit to one dizzy spell on August 29 that lasted about a minute. It was in the evening, and he reports spinning and lightheadedness but it has not recurred. Prior Treatments and Tests He went to [facility] and had a CT, which did not show anything. He was transferred to [facility] in [place], where he underwent MRI which also did not show anything. He is being followed by a neurologist, who suggested that he had a small CVA. Future Testing and Treatments Planned Lumbar MRI to rule out MS per patient. Treatment Goals Patient/Caregiver Goals Walk normally, ride bikes with his kids, be able to run 1.5 miles by November Prior Functional Status Baseline Function- ADL's Independent Baseline Function- Mobility Independent Baseline Function- Recreation/Hobbies The patient was able to jog and bike without issue Current Functional Impairments (Reported) Functional Limitations- ADL's slower with dressing, unable to stand on one leg to perform lower body dressing Functional Limitations- Mobility/Gait Slow, difficult gait takes mental concentration not to catch his toes, no falls to the ground but many near misses where he catches himself due to catching his toes. Personal Factors Other Personal Factors That May Effect Pt's work schedule limits his Therapy/Recovery availability for appointments to afternoon. Busy working and with family limits his ability to rest. PT-OP-C Subjective Start: 09/03/17 06:11 Freq: Status: Active Protocol: Document 09/15/17 14:00 AMB (Rec: 09/15/17 15:26 AMB [email or web address]) OP-PT Subjective Patient Comments Patient Comments Pt is noting less coldness in his affected leg. He is seeing his neurologist on 09/24 . He is hoping to get his AFO soon, he got fitted for it, but is waiting for it to get delivered to the software quality automation engineer. The patient is no longer having to take afternoon naps. PT-OP-D Balance Start: 09/03/17 06:11 Freq: Status: Active Protocol: Document 09/02/17 09:45 AMB (Rec: 09/03/17 09:28 AMB [email or web address]) Balance Tests Single Limb Standing Single Limb- Right unable Single Limb- Left 5 seconds PT-OP-G Mobility & Gait Start: 09/03/17 06:11 Freq: Status: Active Protocol: Document 09/02/17 09:45 AMB (Rec: 09/03/17 09:28 AMB [email or web address]) OP Gait Assessment Assistive Devices Assistive Device None Factors Limiting Gait Function Factors Limiting Gait Function Decreased Strength Comments Gait Comments Steppage gait to compensate for foot drop, even with AFO pt continues to limp but it is significantly improved. Decreased weightbearing tolerance on the R, limits stance time on the right. Stair Climbing Evaluation Evaluation Level of Assist On Stairs Standby Assistance Devices Stair Climbing Assistive Devices Right Railing Technique/Endurance Stair Climbing Direction Ascend and Descend Stair Climbing Technique Step to Step Number of Steps Climbed 4 PT-OP-H Neuro Start: 09/03/17 06:11 Freq: Status: Active Protocol: Document 09/02/17 09:45 AMB (Rec: 09/03/17 09:28 AMB [email or web address]) Sensation Evaluation Location Details Right Leg Light Touch Intact/Normal Comments Summary Comments Pt able to distiguish light touch R vs L with eyes closed 100%, however pt subjectively notices diminished sensation distal to the knee. Deep Tendon Reflex & Clonus Assessment Ankle Clonus Right Clonus Assessment Absent Muscle Tone Tone Assessment Right Lower Extremity Flexor Tone Description Normal Extensor Tone Description Normal PT-OP-M Strength Start: 09/03/17 06:11 Freq: Status: Active Protocol: Document 09/02/17 09:45 AMB (Rec: 09/03/17 08:15 AMB [email or web address]) Hip Strength Hip Manual Muscle Testing Right Flexion (L2) 3 Fair Extension (S1) 4- Good- Abduction 4- Good- Left Reason Not Measured WFL Knee Strength Knee Manual Muscle Testing Right Flexion (S2) 4- Good- Extension (L3) 4- Good- Left Reason Not Measured WFL Ankle/Foot Strength Ankle and Foot Manual Muscle Testing Right Dorsiflexion (L4) 3+ Fair+ Plantarflexion (S1) 4- Good- Left Reason Not Measured WFL PT-OP-Q Treatments Start: 09/03/17 06:11 Freq: Status: Active Protocol: Document 09/15/17 14:00 AMB (Rec: 09/15/17 15:26 AMB [email or web address]) Gym Equipment Shuttle Balance 1 Details RED, WBOS Reps/Duration 10 min Comments EO then HT. Progressed to more normal MAKSIM. Therapeutic Exercises Supine Exercises 2 Supine Exercise Name bridges Comments 2x10 1 Supine Exercise Name SLR Side right Reps/Minutes 1x8 Sidelying Exercises 1 Sidelying Exercise Name hip abd Reps/Minutes 1x10 Sitting Exercises 2 Sitting Exercise Name ankle DF, alternating then AAROM with L helping Reps/Minutes 2x10 Standing Exercises 3 Standing Exercise Name calf stretch Reps/Minutes 30x4 Comments ILIA, then stair 2 Standing Exercise Name forward lunges Reps/Minutes 2x10 Comments at rail, light UE suport 1 Standing Exercise Name double leg heel raise Side right Reps/Minutes 15 Comments trying to get equal weightbearing Gait Training Gait Activity 1 Description heel/ toe walking Device Used railing Distance/Duration 10'x4 Comments near railing, difficult to maintain position, endurance is poor PT-OP-T Assessment and Plan Start: 09/03/17 06:11 Freq: Status: Active Protocol: Document 09/15/17 14:00 AMB (Rec: 09/15/17 15:26 AMB [email or web address]) Physical Therapy Assessment Assessment Summary Assessment BP before activity: 122/82; after activity 120/82. Pt continues to have ankle and hip weakness, fatigues quickly . Physical Therapy Plan Next Visit Focus/Plan Next Note Type Treatment Note Next Visit Plan Follow up on AFO, progress dynamic balance, hip stability , ankle strength.
--- NOTE | 2017-09-21 12:43 | PT.OTN ---
Current Diagnoses Hemiplegia, unspecified affecting right dominant side (09/21/17) Physical Therapy Treatment Note PT-OP-A Visit Information Start: 09/03/17 06:11 Freq: Status: Active Protocol: Document 09/21/17 12:00 DCW (Rec: 09/21/17 12:42 DCW [id number]) Out-Patient Physical Therapy Visit Information Visit Information Visit Type Treatment Note Visit Start Time 12:00 Visit Stop Time 12:45 Total Visit Minutes 45 Visit Number 3 Number of AIR AND HYDRONIC BALANCING TECHNICIAN Visits 0 Evaluation Information Evaluation Date 09/02/17 PT-OP-B Current Condition Start: 09/03/17 06:11 Freq: Status: Active Protocol: Document 09/02/17 09:45 AMB (Rec: 09/03/17 06:44 AMB [email or web address]) Current Condition History of Current Condition Onset Date 08/21/17 History of Current Condition The patient reports he had sudden onset R UE and LE weakness on August 21. Since then he feels that his arm is getting better, but his leg continues to be weak; he notices issues with foot drop. 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 His is a RN who does check his blood pressure. It was high while at the hospital, but otherwise has been around 120/80. He does admit to one dizzy spell on August 29 that lasted about a minute. It was in the evening, and he reports spinning and lightheadedness but it has not recurred. Prior Treatments and Tests He went to [facility] and had a CT, which did not show anything. He was transferred to [facility] in [place], where he underwent MRI which also did not show anything. He is being followed by a neurologist, who suggested that he had a small CVA. Future Testing and Treatments Planned Lumbar MRI to rule out MS per patient. Treatment Goals Patient/Caregiver Goals Walk normally, ride bikes with his kids, be able to run 1.5 miles by November Prior Functional Status Baseline Function- ADL's Independent Baseline Function- Mobility Independent Baseline Function- Recreation/Hobbies The patient was able to jog and bike without issue Current Functional Impairments (Reported) Functional Limitations- ADL's slower with dressing, unable to stand on one leg to perform lower body dressing Functional Limitations- Mobility/Gait Slow, difficult gait takes mental concentration not to catch his toes, no falls to the ground but many near misses where he catches himself due to catching his toes. Personal Factors Other Personal Factors That May Effect Pt's work schedule limits his Therapy/Recovery availability for appointments to afternoon. Busy working and with family limits his ability to rest. PT-OP-C Subjective Start: 09/03/17 06:11 Freq: Status: Active Protocol: Document 09/21/17 12:00 DCW (Rec: 09/21/17 12:42 DCW [id number]) OP-PT Subjective Patient Comments Patient Comments Pt reports he is still waiting for his AFO, but notes his balance actually feels pretty good today for once. PT-OP-Q Treatments Start: 09/03/17 06:11 Freq: Status: Active Protocol: Document 09/21/17 12:00 DCW (Rec: 09/21/17 12:42 DCW [id number]) Gym Equipment Shuttle Balance 1 Details RED, WBOS, Staggered Stance Reps/Duration 10 min Comments EO then HT. Progressed to more normal MAKSIM. Therapeutic Ball 1 Exercise Details Hip/knee flexion and extension vs Lv 2 T-band resistance Ball Size/Color Blue - 45 cm Body Position Supine Therapeutic Exercises Supine Exercises 2 Supine Exercise Name bridges Reps/Minutes 2x10 Comments 1 set of marching in bridge position 1 Supine Exercise Name SLR Side right Reps/Minutes 1x10 Sidelying Exercises 3 Sidelying Exercise Name Reverse Clamshell Reps/Minutes 1x10 2 Sidelying Exercise Name Clamshell Reps/Minutes 1x10 1 Sidelying Exercise Name hip abd Reps/Minutes 1x10 Standing Exercises 3 Standing Exercise Name calf stretch Equipment Used ILIA Reps/Minutes 30x4 2 Standing Exercise Name forward lunges Reps/Minutes 2x10 Comments at rail, light UE suport 1 Standing Exercise Name double leg heel raise Side right Reps/Minutes 15 Comments trying to get equal weightbearing Gait Training Gait Activity 1 Description heel/ toe walking Device Used railing Distance/Duration 10'x4 Comments near railing, difficult to maintain position, endurance is poor PT-OP-T Assessment and Plan Start: 09/03/17 06:11 Freq: Status: Active Protocol: Document 09/21/17 12:00 DCW (Rec: 09/21/17 12:42 DCW [id number]) Physical Therapy Assessment Impairments Impairments Balance Gait Sensation Strength Goals 3 Impairment Balance Short Term Goal (STG) The patient will show improved balance by performing single leg stance for 15 seconds without loss of balance. STG Duration 5 weeks Sales Representative Goal (LTG) The patient will show improved balance by being able to get on and off his bicycle without assistance. LTG Duration 10 weeks 2 Impairment Strength Short Term Goal (STG) The patient will show improved strength by being able to perform 5 single leg heel raises on the right. STG Duration 5 weeks Sales Representative Goal (LTG) The patient will show improved strength by performing a full squat. LTG Duration 10 weeks 1 Impairment Gait Short Term Goal (STG) The patient will ambulate in the community for 30 minutes ( curbs, hills, sand, gravel) without a steppage gait and without loss of balance. STG Duration 5 weeks Correction Goal (LTG) The patient will ascend and descend a flight of stairs with an alternating step pattern without requiring a railing. LTG Duration 10 weeks Assessment Summary Assessment Pt tolerated more TherEx today , required fewer rest breaks. Pt notes his HEP is going well , and some of his activities are getting easier. Pt has increased his daily steps from 2500 to 6000. Physical Therapy Plan Frequency and Duration Frequency of Treatment 2x/Week Duration of Treatment 10 weeks Plan of Care Start Date 09/02/17 Plan of Care End Date 11/11/17 Therapeutic Interventions Therapeutic Interventions Aquatic Therapy Balance Training Gait Training Home Exercise Program Manual Therapy Neuromuscular Re-education Therapeutic Activities Therapeutic Exercises Modalities Cold Pack/Ice Massage Hot Packs Next Visit Focus/Plan Next Note Type Treatment Note Next Visit Plan Check BP before and after exercise. Follow up on AFO. Progress HEP: calf stretch, squat, dynamic balance.
--- NOTE | 2017-09-28 15:44 | PT.OTN ---
Current Diagnoses Hemiplegia, unspecified affecting right dominant side (09/28/17) Physical Therapy Treatment Note PT-OP-A Visit Information Start: 09/03/17 06:11 Freq: Status: Active Protocol: Document 09/28/17 13:45 GGD (Rec: 09/28/17 15:44 GGD [email or web address]) Out-Patient Physical Therapy Visit Information Visit Information Visit Type Treatment Note Visit Start Time 13:45 Visit Stop Time 14:30 Evaluation Information Evaluation Date 09/02/17 PT-OP-B Current Condition Start: 09/03/17 06:11 Freq: Status: Active Protocol: Document 09/02/17 09:45 AMB (Rec: 09/03/17 06:44 AMB [email or web address]) Current Condition History of Current Condition Onset Date 08/21/17 History of Current Condition The patient reports he had sudden onset R UE and LE weakness on August 21. Since then he feels that his arm is getting better, but his leg continues to be weak; he notices issues with foot drop. 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 His is a RN who does check his blood pressure. It was high while at the hospital, but otherwise has been around 120/80. He does admit to one dizzy spell on August 29 that lasted about a minute. It was in the evening, and he reports spinning and lightheadedness but it has not recurred. Prior Treatments and Tests He went to [facility] and had a CT, which did not show anything. He was transferred to [place] in [place], where he underwent MRI which also did not show anything. He is being followed by a neurologist, who suggested that he had a small CVA. Future Testing and Treatments Planned Lumbar MRI to rule out MS per patient. Treatment Goals Patient/Caregiver Goals Walk normally, ride bikes with his kids, be able to run 1.5 miles by November Prior Functional Status Baseline Function- ADL's Independent Baseline Function- Mobility Independent Baseline Function- Recreation/Hobbies The patient was able to jog and bike without issue Current Functional Impairments (Reported) Functional Limitations- ADL's slower with dressing, unable to stand on one leg to perform lower body dressing Functional Limitations- Mobility/Gait Slow, difficult gait takes mental concentration not to catch his toes, no falls to the ground but many near misses where he catches himself due to catching his toes. Personal Factors Other Personal Factors That May Effect Pt's work schedule limits his Therapy/Recovery availability for appointments to afternoon. Busy working and with family limits his ability to rest. PT-OP-C Subjective Start: 09/03/17 06:11 Freq: Status: Active Protocol: Document 09/28/17 13:45 GGD (Rec: 09/28/17 15:44 GGD [email or web address]) OP-PT Subjective Patient Comments Patient Comments Pt reports he got his AFO and is happy with it. He feels his balance is better. PT-OP-D Balance Start: 09/03/17 06:11 Freq: Status: Active Protocol: Document 09/02/17 09:45 AMB (Rec: 09/03/17 09:28 AMB [email or web address]) Balance Tests Single Limb Standing Single Limb- Right unable Single Limb- Left 5 seconds PT-OP-G Mobility & Gait Start: 09/03/17 06:11 Freq: Status: Active Protocol: Document 09/02/17 09:45 AMB (Rec: 09/03/17 09:28 AMB [email or web address]) OP Gait Assessment Assistive Devices Assistive Device None Factors Limiting Gait Function Factors Limiting Gait Function Decreased Strength Comments Gait Comments Steppage gait to compensate for foot drop, even with AFO pt continues to limp but it is significantly improved. Decreased weightbearing tolerance on the R, limits stance time on the right. Stair Climbing Evaluation Evaluation Level of Assist On Stairs Standby Assistance Devices Stair Climbing Assistive Devices Right Railing Technique/Endurance Stair Climbing Direction Ascend and Descend Stair Climbing Technique Step to Step Number of Steps Climbed 4 PT-OP-H Neuro Start: 09/03/17 06:11 Freq: Status: Active Protocol: Document 09/02/17 09:45 AMB (Rec: 09/03/17 09:28 AMB [email or web address]) Sensation Evaluation Location Details Right Leg Light Touch Intact/Normal Comments Summary Comments Pt able to distiguish light touch R vs L with eyes closed 100%, however pt subjectively notices diminished sensation distal to the knee. Deep Tendon Reflex & Clonus Assessment Ankle Clonus Right Clonus Assessment Absent Muscle Tone Tone Assessment Right Lower Extremity Flexor Tone Description Normal Extensor Tone Description Normal PT-OP-M Strength Start: 09/03/17 06:11 Freq: Status: Active Protocol: Document 09/02/17 09:45 AMB (Rec: 09/03/17 08:15 AMB [email or web address]) Hip Strength Hip Manual Muscle Testing Right Flexion (L2) 3 Fair Extension (S1) 4- Good- Abduction 4- Good- Left Reason Not Measured WFL Knee Strength Knee Manual Muscle Testing Right Flexion (S2) 4- Good- Extension (L3) 4- Good- Left Reason Not Measured WFL Ankle/Foot Strength Ankle and Foot Manual Muscle Testing Right Dorsiflexion (L4) 3+ Fair+ Plantarflexion (S1) 4- Good- Left Reason Not Measured WFL PT-OP-Q Treatments Start: 09/03/17 06:11 Freq: Status: Active Protocol: Document 09/28/17 13:45 GGD (Rec: 09/28/17 15:44 GGD [email or web address]) Gym Equipment Shuttle Balance 1 Details RED, WBOS, NBOS, Staggered Stance Reps/Duration 10 min Comments EO, EC, and HT. Progressed to more normal MAKSIM. Therapeutic Ball 1 Exercise Details Hip/knee flexion and extension vs Lv 2 T-band resistance Ball Size/Color Blue - 45 cm Body Position Supine Therapeutic Exercises Supine Exercises 3 Supine Exercise Name hands push on knees Reps/Minutes 2 x 1 min 2 Supine Exercise Name bridges Reps/Minutes 2x10 Comments 1 set of marching in bridge position Standing Exercises 5 Standing Exercise Name Side steps, forward and backward Resistance Green Equipment Used Thera band Reps/Minutes [address] 4 Standing Exercise Name squats Reps/Minutes 2 x 10 Comments light UE support 2 Standing Exercise Name forward lunges Reps/Minutes 2x10 Comments at rail, light UE suport Gait Training Gait Activity 1 Description heel/ toe walking Device Used railing Distance/Duration 10'x4 Comments near railing, difficult to maintain position, endurance is poor forward and backwards Neuro Re-Education Treatment Balance Activities 1 Details SLS Surface firm and blue foam Comments EO and EC on firm, EO on blue foam PT-OP-T Assessment and Plan Start: 09/03/17 06:11 Freq: Status: Active Protocol: Document 09/28/17 13:45 GGD (Rec: 09/28/17 15:44 GGD [email or web address]) Physical Therapy Assessment Assessment Summary Assessment Pt improving with balance. He fatigues quickly, but improving tolerance. Physical Therapy Plan Frequency and Duration Frequency of Treatment 2x/Week Duration of Treatment 10 weeks Plan of Care Start Date 09/02/17 Plan of Care End Date 11/11/17 Next Visit Focus/Plan Next Note Type Treatment Note Next Visit Plan Progressing strengthening and balance.
--- NOTE | 2017-10-05 15:05 | PT.OTN ---
Current Diagnoses Hemiplegia, unspecified affecting right dominant side (10/05/17) Physical Therapy Treatment Note PT-OP-A Visit Information Start: 09/03/17 06:11 Freq: Status: Active Protocol: Document 10/05/17 13:45 GGD (Rec: 10/05/17 15:05 GGD [email or web address]) Out-Patient Physical Therapy Visit Information Visit Information Visit Type Treatment Note Visit Start Time 13:45 Visit Stop Time 14:30 Total Visit Minutes 45 Visit Number 4 Number of ECHOCARDIOGRAPHY TECHNOLOGIST Visits 2 Evaluation Information Evaluation Date 09/02/17 PT-OP-B Current Condition Start: 09/03/17 06:11 Freq: Status: Active Protocol: Document 09/02/17 09:45 AMB (Rec: 09/03/17 06:44 AMB [email or web address]) Current Condition History of Current Condition Onset Date 08/21/17 History of Current Condition The patient reports he had sudden onset R UE and LE weakness on August 21. Since then he feels that his arm is getting better, but his leg continues to be weak; he notices issues with foot drop. 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 His is a RN who does check his blood pressure. It was high while at the hospital, but otherwise has been around 120/80. He does admit to one dizzy spell on August 29 that lasted about a minute. It was in the evening, and he reports spinning and lightheadedness but it has not recurred. Prior Treatments and Tests He went to [facility] and had a CT, which did not show anything. He was transferred to [place] in [place], where he underwent MRI which also did not show anything. He is being followed by a neurologist, who suggested that he had a small CVA. Future Testing and Treatments Planned Lumbar MRI to rule out MS per patient. Treatment Goals Patient/Caregiver Goals Walk normally, ride bikes with his kids, be able to run 1.5 miles by November Prior Functional Status Baseline Function- ADL's Independent Baseline Function- Mobility Independent Baseline Function- Recreation/Hobbies The patient was able to jog and bike without issue Current Functional Impairments (Reported) Functional Limitations- ADL's slower with dressing, unable to stand on one leg to perform lower body dressing Functional Limitations- Mobility/Gait Slow, difficult gait takes mental concentration not to catch his toes, no falls to the ground but many near misses where he catches himself due to catching his toes. Personal Factors Other Personal Factors That May Effect Pt's work schedule limits his Therapy/Recovery availability for appointments to afternoon. Busy working and with family limits his ability to rest. PT-OP-C Subjective Start: 09/03/17 06:11 Freq: Status: Active Protocol: Document 10/05/17 13:45 GGD (Rec: 10/05/17 15:05 GGD [email or web address]) OP-PT Subjective Patient Comments Patient Comments pt states that he had muscle soreness after last visit. He also been working on balance and heel raises at home. PT-OP-Q Treatments Start: 09/03/17 06:11 Freq: Status: Active Protocol: Document 10/05/17 13:45 GGD (Rec: 10/05/17 15:05 GGD [email or web address]) Gym Equipment Shuttle Balance 1 Details RED, WBOS, NBOS, Staggered Stance Reps/Duration 10 min Comments EO, EC, and HT, ball toss Therapeutic Ball 2 Exercise Details bridge with knee flex/ext Ball Size/Color 55 cm Body Position Supine Reps/Duration 15 Therapeutic Exercises Supine Exercises 4 Supine Exercise Name abd. bracing with knees at 90 and toe taps. Reps/Minutes 2 3 Supine Exercise Name hands push on knees Reps/Minutes 2 x 1 min 2 Supine Exercise Name bridges with marches Reps/Minutes 2x10 Standing Exercises 6 Standing Exercise Name Marches Reps/Minutes 2 5 Standing Exercise Name Side steps, forward and backward Resistance Green Equipment Used Thera band Reps/Minutes [address] 4 Standing Exercise Name squats Reps/Minutes 2 x 10 Comments light UE support 2 Standing Exercise Name forward lunges Reps/Minutes 2x10 Comments at rail, light UE suport Gait Training Gait Activity 1 Description heel/ toe walking Device Used railing Distance/Duration 10'x4 Comments forward and backwards, E/C forward. Near rail PT-OP-T Assessment and Plan Start: 09/03/17 06:11 Freq: Status: Active Protocol: Document 10/05/17 13:45 GGD (Rec: 10/05/17 15:05 GGD [email or web address]) Physical Therapy Assessment Assessment Summary Assessment Pt is improving with balance and strength. He had less fatigue. Physical Therapy Plan Frequency and Duration Frequency of Treatment 2x/Week Duration of Treatment 10 weeks Plan of Care Start Date 09/02/17 Plan of Care End Date 11/11/17 Next Visit Focus/Plan Next Note Type Treatment Note Next Visit Plan Progressing strengthening and balance.
--- NOTE | 2017-10-12 17:50 | PT.OTN ---
Current Diagnoses Hemiplegia, unspecified affecting right dominant side (10/12/17) Physical Therapy Treatment Note PT-OP-A Visit Information Start: 09/03/17 06:11 Freq: Status: Active Protocol: Document 10/12/17 14:30 AMB (Rec: 10/12/17 17:47 AMB [email or web address]) Out-Patient Physical Therapy Visit Information Visit Information Visit Type Treatment Note Visit Note 12 visits authorized Visit Start Time 13:45 Visit Stop Time 14:30 Total Visit Minutes 45 Visit Number 6 Number of ASSEMBLER RUBBER FOOTWEAR Visits 0 Evaluation Information Evaluation Date 09/02/17 PT-OP-B Current Condition Start: 09/03/17 06:11 Freq: Status: Active Protocol: Document 09/02/17 09:45 AMB (Rec: 09/03/17 06:44 AMB [email or web address]) Current Condition History of Current Condition Onset Date 08/21/17 History of Current Condition The patient reports he had sudden onset R UE and LE weakness on August 21. Since then he feels that his arm is getting better, but his leg continues to be weak; he notices issues with foot drop. 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 His is a RN who does check his blood pressure. It was high while at the hospital, but otherwise has been around 120/80. He does admit to one dizzy spell on August 29 that lasted about a minute. It was in the evening, and he reports spinning and lightheadedness but it has not recurred. Prior Treatments and Tests He went to [facility] and had a CT, which did not show anything. He was transferred to [place] in [place], where he underwent MRI which also did not show anything. He is being followed by a neurologist, who suggested that he had a small CVA. Future Testing and Treatments Planned Lumbar MRI to rule out MS per patient. Treatment Goals Patient/Caregiver Goals Walk normally, ride bikes with his kids, be able to run 1.5 miles by November Prior Functional Status Baseline Function- ADL's Independent Baseline Function- Mobility Independent Baseline Function- Recreation/Hobbies The patient was able to jog and bike without issue Current Functional Impairments (Reported) Functional Limitations- ADL's slower with dressing, unable to stand on one leg to perform lower body dressing Functional Limitations- Mobility/Gait Slow, difficult gait takes mental concentration not to catch his toes, no falls to the ground but many near misses where he catches himself due to catching his toes. Personal Factors Other Personal Factors That May Effect Pt's work schedule limits his Therapy/Recovery availability for appointments to afternoon. Busy working and with family limits his ability to rest. PT-OP-C Subjective Start: 09/03/17 06:11 Freq: Status: Active Protocol: Document 10/12/17 14:30 AMB (Rec: 10/12/17 17:47 AMB [email or web address]) OP-PT Subjective Patient Comments Patient Comments Pt states he is has been doing his HEP. PT-OP-D Balance Start: 09/03/17 06:11 Freq: Status: Active Protocol: Document 09/02/17 09:45 AMB (Rec: 09/03/17 09:28 AMB [email or web address]) Balance Tests Single Limb Standing Single Limb- Right unable Single Limb- Left 5 seconds PT-OP-G Mobility & Gait Start: 09/03/17 06:11 Freq: Status: Active Protocol: Document 09/02/17 09:45 AMB (Rec: 09/03/17 09:28 AMB [email or web address]) OP Gait Assessment Assistive Devices Assistive Device None Factors Limiting Gait Function Factors Limiting Gait Function Decreased Strength Comments Gait Comments Steppage gait to compensate for foot drop, even with AFO pt continues to limp but it is significantly improved. Decreased weightbearing tolerance on the R, limits stance time on the right. Stair Climbing Evaluation Evaluation Level of Assist On Stairs Standby Assistance Devices Stair Climbing Assistive Devices Right Railing Technique/Endurance Stair Climbing Direction Ascend and Descend Stair Climbing Technique Step to Step Number of Steps Climbed 4 PT-OP-H Neuro Start: 09/03/17 06:11 Freq: Status: Active Protocol: Document 09/02/17 09:45 AMB (Rec: 09/03/17 09:28 AMB [email or web address]) Sensation Evaluation Location Details Right Leg Light Touch Intact/Normal Comments Summary Comments Pt able to distiguish light touch R vs L with eyes closed 100%, however pt subjectively notices diminished sensation distal to the knee. Deep Tendon Reflex & Clonus Assessment Ankle Clonus Right Clonus Assessment Absent Muscle Tone Tone Assessment Right Lower Extremity Flexor Tone Description Normal Extensor Tone Description Normal PT-OP-M Strength Start: 09/03/17 06:11 Freq: Status: Active Protocol: Document 09/02/17 09:45 AMB (Rec: 09/03/17 08:15 AMB [email or web address]) Hip Strength Hip Manual Muscle Testing Right Flexion (L2) 3 Fair Extension (S1) 4- Good- Abduction 4- Good- Left Reason Not Measured WFL Knee Strength Knee Manual Muscle Testing Right Flexion (S2) 4- Good- Extension (L3) 4- Good- Left Reason Not Measured WFL Ankle/Foot Strength Ankle and Foot Manual Muscle Testing Right Dorsiflexion (L4) 3+ Fair+ Plantarflexion (S1) 4- Good- Left Reason Not Measured WFL PT-OP-Q Treatments Start: 09/03/17 06:11 Freq: Status: Active Protocol: Document 10/12/17 14:30 AMB (Rec: 10/12/17 17:47 AMB [email or web address]) Cardio Equipment Bicycle (Upright) Duration (Minutes) 5 Resistance 10 Gym Equipment Shuttle Balance 1 Details RED, WBOS, NBOS, Staggered Stance Reps/Duration 10 min Comments EO, EC, and HT, ball toss Therapeutic Exercises Supine Exercises 5 Supine Exercise Name crunches Comments 10 1 Supine Exercise Name SLR Side right Reps/Minutes 1x10 Sidelying Exercises 1 Sidelying Exercise Name hip abd Reps/Minutes 2x10 Sitting Exercises 1 Sitting Exercise Name stool scooting hamstring curl Comments single leg Standing Exercises 6 Standing Exercise Name Marches Reps/Minutes 2 4 Standing Exercise Name squats Reps/Minutes 2 x 10 Comments light UE support 3 Standing Exercise Name calf stretch Equipment Used ILIA Reps/Minutes 30x4 2 Standing Exercise Name forward lunges Reps/Minutes 2x10 Comments at rail, light UE suport 1 Standing Exercise Name double leg heel raise Side right Reps/Minutes 15 Comments trying to get equal weightbearing Neuro Re-Education Treatment Balance Activities 1 Details SLS Surface firm and blue foam Comments EO and EC on firm, EO on blue foam PT-OP-T Assessment and Plan Start: 09/03/17 06:11 Freq: Status: Active Protocol: Document 10/12/17 14:30 AMB (Rec: 10/12/17 17:47 AMB [email or web address]) Physical Therapy Assessment Goals 3 Impairment Balance Short Term Goal (STG) The patient will show improved balance by performing single leg stance for 15 seconds without loss of balance. STG Duration 5 weeks Usp Goal (LTG) The patient will show improved balance by being able to get on and off his bicycle without assistance. LTG Duration 10 weeks 2 Impairment Strength Short Term Goal (STG) The patient will show improved strength by being able to perform 5 single leg heel raises on the right. STG Duration 5 weeks Cutter First Goal (LTG) The patient will show improved strength by performing a full squat. LTG Duration 10 weeks 1 Impairment Gait Short Term Goal (STG) The patient will ambulate in the community for 30 minutes ( curbs, hills, sand, gravel) without a steppage gait and without loss of balance. STG Duration 5 weeks Cutter First Goal (LTG) The patient will ascend and descend a flight of stairs with an alternating step pattern without requiring a railing. LTG Duration 10 weeks Assessment Summary Assessment Pt continues to have limited ankle strength- good gait with AFO but foot drop continues Physical Therapy Plan Frequency and Duration Frequency of Treatment 2x/Week Duration of Treatment 10 weeks Plan of Care Start Date 09/02/17 Plan of Care End Date 11/11/17 Next Visit Focus/Plan Next Note Type Treatment Note Next Visit Plan Progress ankle and hip strength
--- NOTE | 2017-10-19 17:27 | PT.OTN ---
Current Diagnoses Hemiplegia, unspecified affecting right dominant side (10/19/17) Physical Therapy Treatment Note PT-OP-A Visit Information Start: 09/03/17 06:11 Freq: Status: Active Protocol: Document 10/19/17 16:45 DCW (Rec: 10/19/17 17:27 DCW [id number]) Out-Patient Physical Therapy Visit Information Visit Information Visit Type Treatment Note Visit Start Time 16:45 Visit Stop Time 17:30 Total Visit Minutes 45 Visit Number 7 Number of FIRE INVESTIGATOR Visits 0 Evaluation Information Evaluation Date 09/02/17 PT-OP-B Current Condition Start: 09/03/17 06:11 Freq: Status: Active Protocol: Document 09/02/17 09:45 AMB (Rec: 09/03/17 06:44 AMB [email or web address]) Current Condition History of Current Condition Onset Date 08/21/17 History of Current Condition The patient reports he had sudden onset R UE and LE weakness on August 21. Since then he feels that his arm is getting better, but his leg continues to be weak; he notices issues with foot drop. 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 His is a RN who does check his blood pressure. It was high while at the hospital, but otherwise has been around 120/80. He does admit to one dizzy spell on August 29 that lasted about a minute. It was in the evening, and he reports spinning and lightheadedness but it has not recurred. Prior Treatments and Tests He went to [facility] and had a CT, which did not show anything. He was transferred to [place] in [place], where he underwent MRI which also did not show anything. He is being followed by a neurologist, who suggested that he had a small CVA. Future Testing and Treatments Planned Lumbar MRI to rule out MS per patient. Treatment Goals Patient/Caregiver Goals Walk normally, ride bikes with his kids, be able to run 1.5 miles by November Prior Functional Status Baseline Function- ADL's Independent Baseline Function- Mobility Independent Baseline Function- Recreation/Hobbies The patient was able to jog and bike without issue Current Functional Impairments (Reported) Functional Limitations- ADL's slower with dressing, unable to stand on one leg to perform lower body dressing Functional Limitations- Mobility/Gait Slow, difficult gait takes mental concentration not to catch his toes, no falls to the ground but many near misses where he catches himself due to catching his toes. Personal Factors Other Personal Factors That May Effect Pt's work schedule limits his Therapy/Recovery availability for appointments to afternoon. Busy working and with family limits his ability to rest. PT-OP-C Subjective Start: 09/03/17 06:11 Freq: Status: Active Protocol: Document 10/19/17 16:45 DCW (Rec: 10/19/17 17:27 DCW [id number]) OP-PT Subjective Patient Comments Patient Comments Pt has been getting on his mountain bike and cruising around, admits that everything feels pretty decent. PT-OP-D Balance Start: 09/03/17 06:11 Freq: Status: Active Protocol: Document 09/02/17 09:45 AMB (Rec: 09/03/17 09:28 AMB [email or web address]) Balance Tests Single Limb Standing Single Limb- Right unable Single Limb- Left 5 seconds PT-OP-G Mobility & Gait Start: 09/03/17 06:11 Freq: Status: Active Protocol: Document 09/02/17 09:45 AMB (Rec: 09/03/17 09:28 AMB [email or web address]) OP Gait Assessment Assistive Devices Assistive Device None Factors Limiting Gait Function Factors Limiting Gait Function Decreased Strength Comments Gait Comments Steppage gait to compensate for foot drop, even with AFO pt continues to limp but it is significantly improved. Decreased weightbearing tolerance on the R, limits stance time on the right. Stair Climbing Evaluation Evaluation Level of Assist On Stairs Standby Assistance Devices Stair Climbing Assistive Devices Right Railing Technique/Endurance Stair Climbing Direction Ascend and Descend Stair Climbing Technique Step to Step Number of Steps Climbed 4 PT-OP-H Neuro Start: 09/03/17 06:11 Freq: Status: Active Protocol: Document 09/02/17 09:45 AMB (Rec: 09/03/17 09:28 AMB [email or web address]) Sensation Evaluation Location Details Right Leg Light Touch Intact/Normal Comments Summary Comments Pt able to distiguish light touch R vs L with eyes closed 100%, however pt subjectively notices diminished sensation distal to the knee. Deep Tendon Reflex & Clonus Assessment Ankle Clonus Right Clonus Assessment Absent Muscle Tone Tone Assessment Right Lower Extremity Flexor Tone Description Normal Extensor Tone Description Normal PT-OP-M Strength Start: 09/03/17 06:11 Freq: Status: Active Protocol: Document 09/02/17 09:45 AMB (Rec: 09/03/17 08:15 AMB [email or web address]) Hip Strength Hip Manual Muscle Testing Right Flexion (L2) 3 Fair Extension (S1) 4- Good- Abduction 4- Good- Left Reason Not Measured WFL Knee Strength Knee Manual Muscle Testing Right Flexion (S2) 4- Good- Extension (L3) 4- Good- Left Reason Not Measured WFL Ankle/Foot Strength Ankle and Foot Manual Muscle Testing Right Dorsiflexion (L4) 3+ Fair+ Plantarflexion (S1) 4- Good- Left Reason Not Measured WFL PT-OP-Q Treatments Start: 09/03/17 06:11 Freq: Status: Active Protocol: Document 10/19/17 16:45 DCW (Rec: 10/19/17 17:27 DCW [id number]) Cardio Equipment Bicycle (Upright) Duration (Minutes) 5 Resistance 10 Gym Equipment Shuttle Balance 1 Details RED, WBOS, NBOS, Staggered Stance Reps/Duration 10 min Comments EO, EC, and HT, ball toss Therapeutic Ball 2 Exercise Details bridge with knee flex/ext Ball Size/Color 55 cm Body Position Supine Reps/Duration 15 Therapeutic Exercises Standing Exercises 5 Standing Exercise Name Side steps, forward and backward Resistance Green Equipment Used Thera band Reps/Minutes 2 each direction 4 Standing Exercise Name squats Reps/Minutes 2 x 10 Comments light UE support 2 Standing Exercise Name forward lunges Reps/Minutes 2x10 Comments at rail, light UE suport Gait Training Gait Activity 1 Description heel/ toe walking Device Used railing Distance/Duration 10'x4 Comments forward and backwards, E/C forward. Near rail Neuro Re-Education Treatment Balance Activities 2 Details Heel-toe amb on balance beam Equipment Long balance beam 1 Details SLS Surface firm and blue foam Comments EO and EC on firm, EO on blue foam PT-OP-T Assessment and Plan Start: 09/03/17 06:11 Freq: Status: Active Protocol: Document 10/19/17 16:45 DCW (Rec: 10/19/17 17:27 DCW [id number]) Physical Therapy Assessment Goals 3 Impairment Balance Short Term Goal (STG) The patient will show improved balance by performing single leg stance for 15 seconds without loss of balance. STG Duration 5 weeks Shelter Goal (LTG) The patient will show improved balance by being able to get on and off his bicycle without assistance. LTG Duration 10 weeks 2 Impairment Strength Short Term Goal (STG) The patient will show improved strength by being able to perform 5 single leg heel raises on the right. STG Duration 5 weeks Call Center Recruiter Goal (LTG) The patient will show improved strength by performing a full squat. LTG Duration 10 weeks 1 Impairment Gait Short Term Goal (STG) The patient will ambulate in the community for 30 minutes ( curbs, hills, sand, gravel) without a steppage gait and without loss of balance. STG Duration 5 weeks Call Center Recruiter Goal (LTG) The patient will ascend and descend a flight of stairs with an alternating step pattern without requiring a railing. LTG Duration 10 weeks Assessment Summary Assessment Pt continues to improve, but obvious fatigue in right-side vs left Physical Therapy Plan Frequency and Duration Frequency of Treatment 2x/Week Duration of Treatment 10 weeks Plan of Care Start Date 09/02/17 Plan of Care End Date 11/11/17 Next Visit Focus/Plan Next Note Type Treatment Note Next Visit Plan Progress ankle and hip strength
--- NOTE | 2017-10-29 13:45 | PT.OTN ---
Current Diagnoses Hemiplegia, unspecified affecting right dominant side (10/29/17) Physical Therapy Treatment Note PT-OP-A Visit Information Start: 09/03/17 06:11 Freq: Status: Active Protocol: Document 10/29/17 13:03 LR (Rec: 10/29/17 13:45 [facility] [id number]) Out-Patient Physical Therapy Visit Information Visit Information Visit Type Treatment Note Visit Start Time 13:00 Visit Stop Time 13:45 Total Visit Minutes 45 Visit Number [address] CLE[address]ER Visits 0 PT-OP-B Current Condition Start: 09/03/17 06:11 Freq: Status: Active Protocol: Document 09/02/17 09:45 AMB (Rec: 09/03/17 06:44 AMB [email or web address]) Current Condition History of Current Condition Onset Date 08/21/17 History of Current Condition The patient reports he had sudden onset R UE and LE weakness on August 21. Since then he feels that his arm is getting better, but his leg continues to be weak; he notices issues with foot drop. 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 His is a RN who does check his blood pressure. It was high while at the hospital, but otherwise has been around 120/80. He does admit to one dizzy spell on August 29 that lasted about a minute. It was in the evening, and he reports spinning and lightheadedness but it has not recurred. Prior Treatments and Tests He went to [facility] and had a CT, which did not show anything. He was transferred to [place] in [place], where he underwent MRI which also did not show anything. He is being followed by a neurologist, who suggested that he had a small CVA. Future Testing and Treatments Planned Lumbar MRI to rule out MS per patient. Treatment Goals Patient/Caregiver Goals Walk normally, ride bikes with his kids, be able to run 1.5 miles by November Prior Functional Status Baseline Function- ADL's Independent Baseline Function- Mobility Independent Baseline Function- Recreation/Hobbies The patient was able to jog and bike without issue Current Functional Impairments (Reported) Functional Limitations- ADL's slower with dressing, unable to stand on one leg to perform lower body dressing Functional Limitations- Mobility/Gait Slow, difficult gait takes mental concentration not to catch his toes, no falls to the ground but many near misses where he catches himself due to catching his toes. Personal Factors Other Personal Factors That May Effect Pt's work schedule limits his Therapy/Recovery availability for appointments to afternoon. Busy working and with family limits his ability to rest. PT-OP-C Subjective Start: 09/03/17 06:11 Freq: Status: Active Protocol: Document 10/29/17 13:03 [facility] (Rec: 10/29/17 13:45 [facility] [id number]) OP-PT Subjective Patient Comments Patient Comments Pt reports he has been riding on his bike more. PT-OP-D Balance Start: 09/03/17 06:11 Freq: Status: Active Protocol: Document 09/02/17 09:45 AMB (Rec: 09/03/17 09:28 AMB [email or web address]) Balance Tests Single Limb Standing Single Limb- Right unable Single Limb- Left 5 seconds PT-OP-G Mobility & Gait Start: 09/03/17 06:11 Freq: Status: Active Protocol: Document 09/02/17 09:45 AMB (Rec: 09/03/17 09:28 AMB [email or web address]) OP Gait Assessment Assistive Devices Assistive Device None Factors Limiting Gait Function Factors Limiting Gait Function Decreased Strength Comments Gait Comments Steppage gait to compensate for foot drop, even with AFO pt continues to limp but it is significantly improved. Decreased weightbearing tolerance on the R, limits stance time on the right. Stair Climbing Evaluation Evaluation Level of Assist On Stairs Standby Assistance Devices Stair Climbing Assistive Devices Right Railing Technique/Endurance Stair Climbing Direction Ascend and Descend Stair Climbing Technique Step to Step Number of Steps Climbed 4 PT-OP-H Neuro Start: 09/03/17 06:11 Freq: Status: Active Protocol: Document 09/02/17 09:45 AMB (Rec: 09/03/17 09:28 AMB [email or web address]) Sensation Evaluation Location Details Right Leg Light Touch Intact/Normal Comments Summary Comments Pt able to distiguish light touch R vs L with eyes closed 100%, however pt subjectively notices diminished sensation distal to the knee. Deep Tendon Reflex & Clonus Assessment Ankle Clonus Right Clonus Assessment Absent Muscle Tone Tone Assessment Right Lower Extremity Flexor Tone Description Normal Extensor Tone Description Normal PT-OP-M Strength Start: 09/03/17 06:11 Freq: Status: Active Protocol: Document 09/02/17 09:45 AMB (Rec: 09/03/17 08:15 AMB [email or web address]) Hip Strength Hip Manual Muscle Testing Right Flexion (L2) 3 Fair Extension (S1) 4- Good- Abduction 4- Good- Left Reason Not Measured WFL Knee Strength Knee Manual Muscle Testing Right Flexion (S2) 4- Good- Extension (L3) 4- Good- Left Reason Not Measured WFL Ankle/Foot Strength Ankle and Foot Manual Muscle Testing Right Dorsiflexion (L4) 3+ Fair+ Plantarflexion (S1) 4- Good- Left Reason Not Measured WFL PT-OP-Q Treatments Start: 09/03/17 06:11 Freq: Status: Active Protocol: Document 10/29/17 13:03 [facility] (Rec: 10/29/17 13:45 [facility] [id number]) Cardio Equipment Bicycle (Upright) Duration (Minutes) 5 Resistance 10 Gym Equipment Shuttle Balance 1 Details RED, WBOS, NBOS, Staggered Stance Reps/Duration 10 min Comments EO, EC, and HT, ball toss side facing WBOS & NBOS Therapeutic Exercises Standing Exercises 5 Standing Exercise Name Side step squat, forward and backward Resistance Green Equipment Used Thera band Reps/Minutes 2 each direction 2 Standing Exercise Name walking lunges Reps/Minutes 4x20ft Comments rail as needed Neuro Re-Education Treatment Balance Activities 3 Details step ups onto bosu Reps/Duration 15 B Comments 2 fingers on rail 2 Details tandem walk fwd/back 1 Details SLS Surface firm and blue foam Comments EO and EC on firm, EO on blue foam PT-OP-T Assessment and Plan Start: 09/03/17 06:11 Freq: Status: Active Protocol: Document 10/29/17 13:03 [facility] (Rec: 10/29/17 13:45 [facility] [id number]) Physical Therapy Assessment Goals 3 Impairment Balance Short Term Goal (STG) The patient will show improved balance by performing single leg stance for 15 seconds without loss of balance. STG Duration 5 weeks Livestock Haulier Goal (LTG) The patient will show improved balance by being able to get on and off his bicycle without assistance. LTG Duration 10 weeks 2 Impairment Strength Short Term Goal (STG) The patient will show improved strength by being able to perform 5 single leg heel raises on the right. STG Duration 5 weeks Livestock Haulier Goal (LTG) The patient will show improved strength by performing a full squat. LTG Duration 10 weeks 1 Impairment Gait Short Term Goal (STG) The patient will ambulate in the community for 30 minutes ( curbs, hills, sand, gravel) without a steppage gait and without loss of balance. STG Duration 5 weeks Livestock Haulier Goal (LTG) The patient will ascend and descend a flight of stairs with an alternating step pattern without requiring a railing. LTG Duration 10 weeks Assessment Summary Assessment Pt has inc fatigue with R side during exercises. Overall improving on balance. Physical Therapy Plan Frequency and Duration Frequency of Treatment 2x/Week Duration of Treatment 10 weeks Plan of Care Start Date 09/02/17 Plan of Care End Date 11/11/17 Next Visit Focus/Plan Next Note Type Treatment Note Next Visit Plan Progress ankle and hip strength
--- NOTE | 2017-11-09 16:12 | PT.OTN ---
Current Diagnoses Hemiplegia, unspecified affecting right dominant side (11/09/17) Physical Therapy Treatment Note PT-OP-A Visit Information Start: 09/03/17 06:11 Freq: Status: Active Protocol: Document 11/09/17 14:30 AMB (Rec: 11/09/17 15:42 AMB [email or web address]) Out-Patient Physical Therapy Visit Information Visit Information Visit Type Treatment Note Visit Start Time 14:30 Visit Stop Time 15:15 Total Visit Minutes 45 Visit Number 9 Number of CORPORATE TAX PREPARER Visits 0 Evaluation Information Evaluation Date 09/02/17 PT-OP-B Current Condition Start: 09/03/17 06:11 Freq: Status: Active Protocol: Document 09/02/17 09:45 AMB (Rec: 09/03/17 06:44 AMB [email or web address]) Current Condition History of Current Condition Onset Date 08/21/17 History of Current Condition The patient reports he had sudden onset R UE and LE weakness on August 21. Since then he feels that his arm is getting better, but his leg continues to be weak; he notices issues with foot drop. 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 His is a RN who does check his blood pressure. It was high while at the hospital, but otherwise has been around 120/80. He does admit to one dizzy spell on August 29 that lasted about a minute. It was in the evening, and he reports spinning and lightheadedness but it has not recurred. Prior Treatments and Tests He went to [facility] and had a CT, which did not show anything. He was transferred to [place] in [place], where he underwent MRI which also did not show anything. He is being followed by a neurologist, who suggested that he had a small CVA. Future Testing and Treatments Planned Lumbar MRI to rule out MS per patient. Treatment Goals Patient/Caregiver Goals Walk normally, ride bikes with his kids, be able to run 1.5 miles by November Prior Functional Status Baseline Function- ADL's Independent Baseline Function- Mobility Independent Baseline Function- Recreation/Hobbies The patient was able to jog and bike without issue Current Functional Impairments (Reported) Functional Limitations- ADL's slower with dressing, unable to stand on one leg to perform lower body dressing Functional Limitations- Mobility/Gait Slow, difficult gait takes mental concentration not to catch his toes, no falls to the ground but many near misses where he catches himself due to catching his toes. Personal Factors Other Personal Factors That May Effect Pt's work schedule limits his Therapy/Recovery availability for appointments to afternoon. Busy working and with family limits his ability to rest. PT-OP-C Subjective Start: 09/03/17 06:11 Freq: Status: Active Protocol: Document 11/09/17 14:30 AMB (Rec: 11/09/17 15:42 AMB [email or web address]) OP-PT Subjective Patient Comments Patient Comments Pt is mostly concerned about his ability to do sit ups, he feels like he is using his left leg to do the majority of it. He had to miss last week because he was taking prednisone after an allergic reaction to a bee sting. PT-OP-D Balance Start: 09/03/17 06:11 Freq: Status: Active Protocol: Document 11/09/17 14:30 AMB (Rec: 11/09/17 15:47 AMB [email or web address]) Balance Tests Single Limb Standing Single Limb- Right 5-10 seconds Single Limb- Left 15 seconds PT-OP-G Mobility & Gait Start: 09/03/17 06:11 Freq: Status: Active Protocol: Document 09/02/17 09:45 AMB (Rec: 09/03/17 09:28 AMB [email or web address]) OP Gait Assessment Assistive Devices Assistive Device None Factors Limiting Gait Function Factors Limiting Gait Function Decreased Strength Comments Gait Comments Steppage gait to compensate for foot drop, even with AFO pt continues to limp but it is significantly improved. Decreased weightbearing tolerance on the R, limits stance time on the right. Stair Climbing Evaluation Evaluation Level of Assist On Stairs Standby Assistance Devices Stair Climbing Assistive Devices Right Railing Technique/Endurance Stair Climbing Direction Ascend and Descend Stair Climbing Technique Step to Step Number of Steps Climbed 4 PT-OP-H Neuro Start: 09/03/17 06:11 Freq: Status: Active Protocol: Document 09/02/17 09:45 AMB (Rec: 09/03/17 09:28 AMB [email or web address]) Sensation Evaluation Location Details Right Leg Light Touch Intact/Normal Comments Summary Comments Pt able to distiguish light touch R vs L with eyes closed 100%, however pt subjectively notices diminished sensation distal to the knee. Deep Tendon Reflex & Clonus Assessment Ankle Clonus Right Clonus Assessment Absent Muscle Tone Tone Assessment Right Lower Extremity Flexor Tone Description Normal Extensor Tone Description Normal PT-OP-M Strength Start: 09/03/17 06:11 Freq: Status: Active Protocol: Document 11/09/17 14:30 AMB (Rec: 11/09/17 15:47 AMB [email or web address]) Hip Strength Hip Manual Muscle Testing Right Flexion (L2) 4- Good- Extension (S1) 4+ Good+ Abduction 4 Good Knee Strength Knee Manual Muscle Testing Right Flexion (S2) 4 Good Extension (L3) 4 Good Ankle/Foot Strength Ankle and Foot Manual Muscle Testing Right Dorsiflexion (L4) 3+ Fair+ Plantarflexion (S1) 4 Good PT-OP-Q Treatments Start: 09/03/17 06:11 Freq: Status: Active Protocol: Document 11/09/17 14:30 AMB (Rec: 11/09/17 16:11 AMB [email or web address]) Cardio Equipment Bicycle (Upright) Duration (Minutes) 7 Resistance 10 Gym Equipment Cable Column (Body Solid) Leg Extension Details unilateral R Resistance 30 Reps/Time 3x10 Therapeutic Exercises Supine Exercises 6 Supine Exercise Name air bicycle Resistance 3x30 5 Supine Exercise Name sit ups Comments 15 Standing Exercises 4 Standing Exercise Name wall squats Reps/Minutes 2x30 1 Standing Exercise Name single leg heel raise Side right Reps/Minutes 2x5 Neuro Re-Education Treatment Balance Activities 1 Details SLS Surface firm and blue foam Comments EO and EC on firm, EO on blue foam PT-OP-T Assessment and Plan Start: 09/03/17 06:11 Freq: Status: Active Protocol: Document 11/09/17 14:30 AMB (Rec: 11/09/17 16:06 AMB [email or web address]) Physical Therapy Assessment Goals 3 Impairment Balance Short Term Goal (STG) The patient will show improved balance by performing single leg stance for 15 seconds without loss of balance. PROGRESS MADE- inconsistent 10 seconds STG Duration 8 weeks Commercial Insulator Goal (LTG) The patient will show improved balance by being able to get on and off his bicycle without assistance. LTG Duration MET 2 Impairment Strength Short Term Goal (STG) The patient will show improved strength by being able to perform 5 single leg heel raises on the right. NOT FULL RANGE, but can do partial range STG Duration 8 weeks [facility] Goal (LTG) The patient will show improved strength by performing a full squat. LTG Duration MET 1 Impairment Gait Short Term Goal (STG) The patient will ambulate in the community for 30 minutes ( curbs, hills, sand, gravel) without a steppage gait and without loss of balance. PARTIALLY MET- fatigues quickly with AFO STG Duration 8 weeks [facility] Goal (LTG) The patient will ascend and descend a flight of stairs with an alternating step pattern without requiring a railing. LTG Duration MET Assessment Summary Assessment The patient has shown good improvement in his balance and gait. His strength in his hip is improving, but his ankle remains weak. Overall his strength is improving, but is not equal to the other side (for example he can lift 50# of knee extension on the left, and 30# on the right). The patient will benefit from continued physical therapy to improve his dynamic balance and provide safe strengthening progression. Physical Therapy Plan Frequency and Duration Frequency of Treatment 2x/Week Duration of Treatment 8 weeks Plan of Care Start Date 11/09/17 Plan of Care End Date 01/04/18 Therapeutic Interventions Therapeutic Interventions Balance Training Gait Training Home Exercise Program Manual Therapy Neuromuscular Re-education Therapeutic Activities Therapeutic Exercises Modalities Cold Pack/Ice Massage Electric Stimulation Hot Packs Next Visit Focus/Plan Next Note Type Treatment Note Next Visit Plan Progress core/ quad strength, progress dynamic balance/ ankle stability
--- NOTE | 2017-11-09 16:14 | PT.OPPOC ---
Current Diagnoses Hemiplegia, unspecified affecting right dominant side (11/09/17) Provider Visit Care Team Role Provider Type Michelle Godoy MD Other Providers Physician Specialty: Family Practice Address: [address] [place] [address], [id number] Email: [email or web address] Cole Purcell MD Attending Provider Non-Staff Specialty: [facility] Address: [address] [place] [address], [id number] Email: Plan Of Care PT-OP-T Assessment and Plan Start: 09/03/17 06:11 Freq: Status: Active Protocol: Document 11/09/17 14:30 AMB (Rec: 11/09/17 16:06 AMB [email or web address]) Physical Therapy Assessment Goals 3 Impairment Balance Short Term Goal (STG) The patient will show improved balance by performing single leg stance for 15 seconds without loss of balance. PROGRESS MADE- inconsistent 10 seconds STG Duration 8 weeks Account Assistant Goal (LTG) The patient will show improved balance by being able to get on and off his bicycle without assistance. LTG Duration MET 2 Impairment Strength Short Term Goal (STG) The patient will show improved strength by being able to perform 5 single leg heel raises on the right. NOT FULL RANGE, but can do partial range STG Duration 8 weeks Senior Care Goal (LTG) The patient will show improved strength by performing a full squat. LTG Duration MET 1 Impairment Gait Short Term Goal (STG) The patient will ambulate in the community for 30 minutes ( curbs, hills, sand, gravel) without a steppage gait and without loss of balance. PARTIALLY MET- fatigues quickly with AFO STG Duration 8 weeks Senior Care Goal (LTG) The patient will ascend and descend a flight of stairs with an alternating step pattern without requiring a railing. LTG Duration MET Assessment Summary Assessment The patient has shown good improvement in his balance and gait. His strength in his hip is improving, but his ankle remains weak. Overall his strength is improving, but is not equal to the other side (for example he can lift 50# of knee extension on the left, and 30# on the right). The patient will benefit from continued physical therapy to improve his dynamic balance and provide safe strengthening progression. Physical Therapy Plan Frequency and Duration Frequency of Treatment 2x/Week Duration of Treatment 8 weeks Plan of Care Start Date 11/09/17 Plan of Care End Date 01/04/18 Therapeutic Interventions Therapeutic Interventions Balance Training Gait Training Home Exercise Program Manual Therapy Neuromuscular Re-education Therapeutic Activities Therapeutic Exercises Modalities Cold Pack/Ice Massage Electric Stimulation Hot Packs Next Visit Focus/Plan Next Note Type Treatment Note Next Visit Plan Progress core/ quad strength, progress dynamic balance/ ankle stability Plan of Care Dates Plan of Care Start Date 11/09/17 Plan of Care End Date 01/04/18 Please Sign and Return: I have reviewed this Plan of Care and certify that the skilled therapy services above are required to meet the patient?s needs. Physician Signature Date Printed Name and Credentials Clinical Instructor Signature Printed Name and Credentials
--- NOTE | 2017-11-12 16:21 | PT.OTN ---
Current Diagnoses Hemiplegia, unspecified affecting right dominant side (11/12/17) Physical Therapy Treatment Note PT-OP-A Visit Information Start: 09/03/17 06:11 Freq: Status: Active Protocol: Document 11/12/17 13:00 AMB (Rec: 11/12/17 13:11 AMB [id number]) Out-Patient Physical Therapy Visit Information Visit Information Visit Type Treatment Note Visit Start Time 13:00 Visit Stop Time 13:45 Total Visit Minutes 45 Visit Number 10 Number of BULLET SWAGING MACHINE OPERATOR Visits 0 Evaluation Information Evaluation Date 09/02/17 PT-OP-B Current Condition Start: 09/03/17 06:11 Freq: Status: Active Protocol: Document 09/02/17 09:45 AMB (Rec: 09/03/17 06:44 AMB [email or web address]) Current Condition History of Current Condition Onset Date 08/21/17 History of Current Condition The patient reports he had sudden onset R UE and LE weakness on August 21. Since then he feels that his arm is getting better, but his leg continues to be weak; he notices issues with foot drop. 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 His is a RN who does check his blood pressure. It was high while at the hospital, but otherwise has been around 120/80. He does admit to one dizzy spell on August 29 that lasted about a minute. It was in the evening, and he reports spinning and lightheadedness but it has not recurred. Prior Treatments and Tests He went to [facility] and had a CT, which did not show anything. He was transferred to [facility] in [place], where he underwent MRI which also did not show anything. He is being followed by a neurologist, who suggested that he had a small CVA. Future Testing and Treatments Planned Lumbar MRI to rule out MS per patient. Treatment Goals Patient/Caregiver Goals Walk normally, ride bikes with his kids, be able to run 1.5 miles by November Prior Functional Status Baseline Function- ADL's Independent Baseline Function- Mobility Independent Baseline Function- Recreation/Hobbies The patient was able to jog and bike without issue Current Functional Impairments (Reported) Functional Limitations- ADL's slower with dressing, unable to stand on one leg to perform lower body dressing Functional Limitations- Mobility/Gait Slow, difficult gait takes mental concentration not to catch his toes, no falls to the ground but many near misses where he catches himself due to catching his toes. Personal Factors Other Personal Factors That May Effect Pt's work schedule limits his Therapy/Recovery availability for appointments to afternoon. Busy working and with family limits his ability to rest. PT-OP-C Subjective Start: 09/03/17 06:11 Freq: Status: Active Protocol: Document 11/12/17 13:00 AMB (Rec: 11/12/17 13:11 AMB [id number]) OP-PT Subjective Patient Comments Patient Comments Pt has a headache today PT-OP-D Balance Start: 09/03/17 06:11 Freq: Status: Active Protocol: Document 11/09/17 14:30 AMB (Rec: 11/09/17 15:47 AMB [email or web address]) Balance Tests Single Limb Standing Single Limb- Right 5-10 seconds Single Limb- Left 15 seconds PT-OP-G Mobility & Gait Start: 09/03/17 06:11 Freq: Status: Active Protocol: Document 09/02/17 09:45 AMB (Rec: 09/03/17 09:28 AMB [email or web address]) OP Gait Assessment Assistive Devices Assistive Device None Factors Limiting Gait Function Factors Limiting Gait Function Decreased Strength Comments Gait Comments Steppage gait to compensate for foot drop, even with AFO pt continues to limp but it is significantly improved. Decreased weightbearing tolerance on the R, limits stance time on the right. Stair Climbing Evaluation Evaluation Level of Assist On Stairs Standby Assistance Devices Stair Climbing Assistive Devices Right Railing Technique/Endurance Stair Climbing Direction Ascend and Descend Stair Climbing Technique Step to Step Number of Steps Climbed 4 PT-OP-H Neuro Start: 09/03/17 06:11 Freq: Status: Active Protocol: Document 09/02/17 09:45 AMB (Rec: 09/03/17 09:28 AMB [email or web address]) Sensation Evaluation Location Details Right Leg Light Touch Intact/Normal Comments Summary Comments Pt able to distiguish light touch R vs L with eyes closed 100%, however pt subjectively notices diminished sensation distal to the knee. Deep Tendon Reflex & Clonus Assessment Ankle Clonus Right Clonus Assessment Absent Muscle Tone Tone Assessment Right Lower Extremity Flexor Tone Description Normal Extensor Tone Description Normal PT-OP-M Strength Start: 09/03/17 06:11 Freq: Status: Active Protocol: Document 11/09/17 14:30 AMB (Rec: 11/09/17 15:47 AMB [email or web address]) Hip Strength Hip Manual Muscle Testing Right Flexion (L2) 4- Good- Extension (S1) 4+ Good+ Abduction 4 Good Knee Strength Knee Manual Muscle Testing Right Flexion (S2) 4 Good Extension (L3) 4 Good Ankle/Foot Strength Ankle and Foot Manual Muscle Testing Right Dorsiflexion (L4) 3+ Fair+ Plantarflexion (S1) 4 Good PT-OP-Q Treatments Start: 09/03/17 06:11 Freq: Status: Active Protocol: Document 11/12/17 13:00 AMB (Rec: 11/12/17 16:18 AMB [email or web address]) Cardio Equipment Bicycle (Upright) Duration (Minutes) 7 Resistance 10 Gym Equipment Shuttle Balance 1 Details RED, WBOS, NBOS, Staggered Stance Reps/Duration 10 min Comments EO, EC, and HT, side facing WBOS & NBOS Therapeutic Exercises Supine Exercises 6 Supine Exercise Name air bicycle Resistance 3x30 5 Supine Exercise Name sit ups Comments 15 Standing Exercises 5 Standing Exercise Name Side step squat, forward and backward Resistance Green Equipment Used Thera band Reps/Minutes 2 each direction 2 Standing Exercise Name walking lunges Reps/Minutes 4x20ft Comments no UE support PT-OP-T Assessment and Plan Start: 09/03/17 06:11 Freq: Status: Active Protocol: Document 11/12/17 13:00 AMB (Rec: 11/12/17 16:18 AMB [email or web address]) Physical Therapy Assessment Assessment Summary Assessment Pt's headache (bilateral forehead) did not change during therapy. Blood pressure 128/78 after stationary bike. Pt encouraged to follow up with MD due to insurance and if headache continues to call MD office. Physical Therapy Plan Next Visit Focus/Plan Next Note Type Treatment Note Next Visit Plan Progress core/ dyamic balance as tolerated.
--- NOTE | 2017-11-16 14:34 | PT.OTN ---
Current Diagnoses Hemiplegia, unspecified affecting right dominant side (11/16/17) Physical Therapy Treatment Note PT-OP-A Visit Information Start: 09/03/17 06:11 Freq: Status: Active Protocol: Document 11/16/17 13:45 DCW (Rec: 11/16/17 14:34 DCW [id number]) Out-Patient Physical Therapy Visit Information Visit Information Visit Type Treatment Note Visit Start Time 13:45 Visit Stop Time 14:30 Total Visit Minutes 45 Visit Number 11 Number of UNION CARPENTER Visits 0 Evaluation Information Evaluation Date 09/02/17 PT-OP-B Current Condition Start: 09/03/17 06:11 Freq: Status: Active Protocol: Document 09/02/17 09:45 AMB (Rec: 09/03/17 06:44 AMB [email or web address]) Current Condition History of Current Condition Onset Date 08/21/17 History of Current Condition The patient reports he had sudden onset R UE and LE weakness on August 21. Since then he feels that his arm is getting better, but his leg continues to be weak; he notices issues with foot drop. 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 His is a RN who does check his blood pressure. It was high while at the hospital, but otherwise has been around 120/80. He does admit to one dizzy spell on August 29 that lasted about a minute. It was in the evening, and he reports spinning and lightheadedness but it has not recurred. Prior Treatments and Tests He went to [facility] and had a CT, which did not show anything. He was transferred to [facility] in [place], where he underwent MRI which also did not show anything. He is being followed by a neurologist, who suggested that he had a small CVA. Future Testing and Treatments Planned Lumbar MRI to rule out MS per patient. Treatment Goals Patient/Caregiver Goals Walk normally, ride bikes with his kids, be able to run 1.5 miles by November Prior Functional Status Baseline Function- ADL's Independent Baseline Function- Mobility Independent Baseline Function- Recreation/Hobbies The patient was able to jog and bike without issue Current Functional Impairments (Reported) Functional Limitations- ADL's slower with dressing, unable to stand on one leg to perform lower body dressing Functional Limitations- Mobility/Gait Slow, difficult gait takes mental concentration not to catch his toes, no falls to the ground but many near misses where he catches himself due to catching his toes. Personal Factors Other Personal Factors That May Effect Pt's work schedule limits his Therapy/Recovery availability for appointments to afternoon. Busy working and with family limits his ability to rest. PT-OP-C Subjective Start: 09/03/17 06:11 Freq: Status: Active Protocol: Document 11/16/17 13:45 DCW (Rec: 11/16/17 14:34 DCW [id number]) OP-PT Subjective Patient Comments Patient Comments Pt reports he has a scheduled appointment with his esday in order to request further PT authorization Patient Reported Progress Improving PT-OP-D Balance Start: 09/03/17 06:11 Freq: Status: Active Protocol: Document 11/09/17 14:30 AMB (Rec: 11/09/17 15:47 AMB [email or web address]) Balance Tests Single Limb Standing Single Limb- Right 5-10 seconds Single Limb- Left 15 seconds PT-OP-G Mobility & Gait Start: 09/03/17 06:11 Freq: Status: Active Protocol: Document 09/02/17 09:45 AMB (Rec: 09/03/17 09:28 AMB [email or web address]) OP Gait Assessment Assistive Devices Assistive Device None Factors Limiting Gait Function Factors Limiting Gait Function Decreased Strength Comments Gait Comments Steppage gait to compensate for foot drop, even with AFO pt continues to limp but it is significantly improved. Decreased weightbearing tolerance on the R, limits stance time on the right. Stair Climbing Evaluation Evaluation Level of Assist On Stairs Standby Assistance Devices Stair Climbing Assistive Devices Right Railing Technique/Endurance Stair Climbing Direction Ascend and Descend Stair Climbing Technique Step to Step Number of Steps Climbed 4 PT-OP-H Neuro Start: 09/03/17 06:11 Freq: Status: Active Protocol: Document 09/02/17 09:45 AMB (Rec: 09/03/17 09:28 AMB [email or web address]) Sensation Evaluation Location Details Right Leg Light Touch Intact/Normal Comments Summary Comments Pt able to distiguish light touch R vs L with eyes closed 100%, however pt subjectively notices diminished sensation distal to the knee. Deep Tendon Reflex & Clonus Assessment Ankle Clonus Right Clonus Assessment Absent Muscle Tone Tone Assessment Right Lower Extremity Flexor Tone Description Normal Extensor Tone Description Normal PT-OP-M Strength Start: 09/03/17 06:11 Freq: Status: Active Protocol: Document 11/09/17 14:30 AMB (Rec: 11/09/17 15:47 AMB [email or web address]) Hip Strength Hip Manual Muscle Testing Right Flexion (L2) 4- Good- Extension (S1) 4+ Good+ Abduction 4 Good Knee Strength Knee Manual Muscle Testing Right Flexion (S2) 4 Good Extension (L3) 4 Good Ankle/Foot Strength Ankle and Foot Manual Muscle Testing Right Dorsiflexion (L4) 3+ Fair+ Plantarflexion (S1) 4 Good PT-OP-Q Treatments Start: 09/03/17 06:11 Freq: Status: Active Protocol: Document 11/16/17 13:45 DCW (Rec: 11/16/17 14:34 DCW [id number]) Cardio Equipment Bicycle (Upright) Duration (Minutes) 7 Resistance 10 Gym Equipment Shuttle Balance 1 Details RED, WBOS, NBOS, Staggered Stance Reps/Duration 10 min Comments EO, EC, and HT, side facing WBOS & NBOS, SLS Therapeutic Exercises Standing Exercises 5 Standing Exercise Name Side step squat, forward and backward Resistance Green Equipment Used Thera band Reps/Minutes 2 each direction 2 Standing Exercise Name walking lunges Gait Training Gait Activity 1 Description heel/ toe walking Device Used railing Distance/Duration 10'x4 Comments forward and backwards, E/C forward. Near rail Neuro Re-Education Treatment Balance Activities 4 Details BOSU lateral step-over 1 Details SLS Surface Pires foam PT-OP-T Assessment and Plan Start: 09/03/17 06:11 Freq: Status: Active Protocol: Document 11/16/17 13:45 DCW (Rec: 11/16/17 14:34 DCW [id number]) Physical Therapy Assessment Goals 3 Impairment Balance Short Term Goal (STG) The patient will show improved balance by performing single leg stance for 15 seconds without loss of balance. PROGRESS MADE- inconsistent 10 seconds STG Duration 8 weeks Coal Washer Goal (LTG) The patient will show improved balance by being able to get on and off his bicycle without assistance. LTG Duration MET 2 Impairment Strength Short Term Goal (STG) The patient will show improved strength by being able to perform 5 single leg heel raises on the right. NOT FULL RANGE, but can do partial range STG Duration 8 weeks Coal Washer Goal (LTG) The patient will show improved strength by performing a full squat. LTG Duration MET 1 Impairment Gait Short Term Goal (STG) The patient will ambulate in the community for 30 minutes ( curbs, hills, sand, gravel) without a steppage gait and without loss of balance. PARTIALLY MET- fatigues quickly with AFO STG Duration 8 weeks Coal Washer Goal (LTG) The patient will ascend and descend a flight of stairs with an alternating step pattern without requiring a railing. LTG Duration MET Assessment Summary Assessment Pt feeling good today, notes significant improvement with overall function, admits his right foot is still the thing holding me back. Physical Therapy Plan Frequency and Duration Frequency of Treatment 2x/Week Duration of Treatment 8 weeks Plan of Care Start Date 11/09/17 Plan of Care End Date 01/04/18 Therapeutic Interventions Therapeutic Interventions Balance Training Gait Training Home Exercise Program Manual Therapy Neuromuscular Re-education Therapeutic Activities Therapeutic Exercises Modalities Cold Pack/Ice Massage Electric Stimulation Hot Packs Next Visit Focus/Plan Next Note Type Treatment Note Next Visit Plan Progress core/ dynamic balance as tolerated.
--- NOTE | 2017-11-23 15:23 | PT.OTN ---
Current Diagnoses Hemiplegia, unspecified affecting right dominant side (11/23/17) Physical Therapy Treatment Note PT-OP-A Visit Information Start: 09/03/17 06:11 Freq: Status: Active Protocol: Document 11/23/17 13:00 AMB (Rec: 11/23/17 13:19 AMB [id number]) Out-Patient Physical Therapy Visit Information Visit Information Visit Type Treatment Note Visit Start Time 13:00 Visit Stop Time 13:45 Total Visit Minutes 45 Visit Number 12 Number of PEDIATRIC NP Visits 0 Evaluation Information Evaluation Date 09/02/17 PT-OP-B Current Condition Start: 09/03/17 06:11 Freq: Status: Active Protocol: Document 09/02/17 09:45 AMB (Rec: 09/03/17 06:44 AMB [email or web address]) Current Condition History of Current Condition Onset Date 08/21/17 History of Current Condition The patient reports he had sudden onset R UE and LE weakness on August 21. Since then he feels that his arm is getting better, but his leg continues to be weak; he notices issues with foot drop. 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 His is a RN who does check his blood pressure. It was high while at the hospital, but otherwise has been around 120/80. He does admit to one dizzy spell on August 29 that lasted about a minute. It was in the evening, and he reports spinning and lightheadedness but it has not recurred. Prior Treatments and Tests He went to [facility] and had a CT, which did not show anything. He was transferred to [facility] in [place], where he underwent MRI which also did not show anything. He is being followed by a neurologist, who suggested that he had a small CVA. Future Testing and Treatments Planned Lumbar MRI to rule out MS per patient. Treatment Goals Patient/Caregiver Goals Walk normally, ride bikes with his kids, be able to run 1.5 miles by November Prior Functional Status Baseline Function- ADL's Independent Baseline Function- Mobility Independent Baseline Function- Recreation/Hobbies The patient was able to jog and bike without issue Current Functional Impairments (Reported) Functional Limitations- ADL's slower with dressing, unable to stand on one leg to perform lower body dressing Functional Limitations- Mobility/Gait Slow, difficult gait takes mental concentration not to catch his toes, no falls to the ground but many near misses where he catches himself due to catching his toes. Personal Factors Other Personal Factors That May Effect Pt's work schedule limits his Therapy/Recovery availability for appointments to afternoon. Busy working and with family limits his ability to rest. PT-OP-C Subjective Start: 09/03/17 06:11 Freq: Status: Active Protocol: Document 11/23/17 13:00 AMB (Rec: 11/23/17 13:19 AMB [id number]) OP-PT Subjective Patient Comments Patient Comments Pt states PCP put in for more PT today. Pt feeling good, feeling like things are getting better. PT-OP-D Balance Start: 09/03/17 06:11 Freq: Status: Active Protocol: Document 11/09/17 14:30 AMB (Rec: 11/09/17 15:47 AMB [email or web address]) Balance Tests Single Limb Standing Single Limb- Right 5-10 seconds Single Limb- Left 15 seconds PT-OP-G Mobility & Gait Start: 09/03/17 06:11 Freq: Status: Active Protocol: Document 09/02/17 09:45 AMB (Rec: 09/03/17 09:28 AMB [email or web address]) OP Gait Assessment Assistive Devices Assistive Device None Factors Limiting Gait Function Factors Limiting Gait Function Decreased Strength Comments Gait Comments Steppage gait to compensate for foot drop, even with AFO pt continues to limp but it is significantly improved. Decreased weightbearing tolerance on the R, limits stance time on the right. Stair Climbing Evaluation Evaluation Level of Assist On Stairs Standby Assistance Devices Stair Climbing Assistive Devices Right Railing Technique/Endurance Stair Climbing Direction Ascend and Descend Stair Climbing Technique Step to Step Number of Steps Climbed 4 PT-OP-H Neuro Start: 09/03/17 06:11 Freq: Status: Active Protocol: Document 09/02/17 09:45 AMB (Rec: 09/03/17 09:28 AMB [email or web address]) Sensation Evaluation Location Details Right Leg Light Touch Intact/Normal Comments Summary Comments Pt able to distiguish light touch R vs L with eyes closed 100%, however pt subjectively notices diminished sensation distal to the knee. Deep Tendon Reflex & Clonus Assessment Ankle Clonus Right Clonus Assessment Absent Muscle Tone Tone Assessment Right Lower Extremity Flexor Tone Description Normal Extensor Tone Description Normal PT-OP-M Strength Start: 09/03/17 06:11 Freq: Status: Active Protocol: Document 11/09/17 14:30 AMB (Rec: 11/09/17 15:47 AMB [email or web address]) Hip Strength Hip Manual Muscle Testing Right Flexion (L2) 4- Good- Extension (S1) 4+ Good+ Abduction 4 Good Knee Strength Knee Manual Muscle Testing Right Flexion (S2) 4 Good Extension (L3) 4 Good Ankle/Foot Strength Ankle and Foot Manual Muscle Testing Right Dorsiflexion (L4) 3+ Fair+ Plantarflexion (S1) 4 Good PT-OP-Q Treatments Start: 09/03/17 06:11 Freq: Status: Active Protocol: Document 11/23/17 13:00 AMB (Rec: 11/23/17 15:22 AMB [email or web address]) Cardio Equipment Bicycle (Upright) Duration (Minutes) 7 Resistance 10 Gym Equipment Cable Column (Body Solid) Leg Curl Details unilateral R Resistance 30 Reps/Time 2x10 Leg Extension Details unilateral R Resistance 30 Reps/Time 2x10 Shuttle Balance 1 Details RED, WBOS, NBOS, Staggered Stance Reps/Duration 10 min Comments EO, EC, and HT, side facing WBOS & NBOS, SLS Therapeutic Exercises Supine Exercises 6 Supine Exercise Name air bicycle Resistance 3x30 5 Supine Exercise Name sit ups Comments 15 4 Supine Exercise Name crunches, obliques Reps/Minutes 2x7 Prone Exercises 1 Prone Exercise Name plank Reps/Minutes 30x2 Comments forearms Sidelying Exercises 1 Sidelying Exercise Name side plank Reps/Minutes 30x2 Standing Exercises 5 Standing Exercise Name Side step squat, forward and backward Resistance Green Equipment Used Thera band Reps/Minutes 2 each direction Comments without AFO 2 Standing Exercise Name walking lunges 1 Standing Exercise Name eccentric heel raise Side right Reps/Minutes 2x10 Comments double leg up, single leg down PT-OP-T Assessment and Plan Start: 09/03/17 06:11 Freq: Status: Active Protocol: Document 11/23/17 13:00 AMB (Rec: 11/23/17 14:56 AMB [email or web address]) Physical Therapy Assessment Goals 3 Impairment Balance Short Term Goal (STG) The patient will show improved balance by performing single leg stance for 15 seconds without loss of balance. PROGRESS MADE- inconsistent 10 seconds STG Duration 8 weeks Divemaster Goal (LTG) The patient will show improved balance by being able to get on and off his bicycle without assistance. LTG Duration MET 2 Impairment Strength Short Term Goal (STG) The patient will show improved strength by being able to perform 5 single leg heel raises on the right. NOT FULL RANGE, but can do partial range STG Duration 8 weeks Divemaster Goal (LTG) The patient will show improved strength by performing a full squat. LTG Duration MET 1 Impairment Gait Short Term Goal (STG) The patient will ambulate in the community for 30 minutes ( curbs, hills, sand, gravel) without a steppage gait and without loss of balance. PARTIALLY MET- fatigues quickly with AFO STG Duration 8 weeks Divemaster Goal (LTG) The patient will ascend and descend a flight of stairs with an alternating step pattern without requiring a railing. LTG Duration MET Assessment Summary Assessment Pt has new auth. Feels like foot and core are still weak, but can see progress. Overall trying to decrease AFO time at home, but still uses it in the community. Physical Therapy Plan Frequency and Duration Frequency of Treatment 2x/Week Duration of Treatment 8 weeks Plan of Care Start Date 11/09/17 Plan of Care End Date 01/04/18 Next Visit Focus/Plan Next Note Type Treatment Note Next Visit Plan Progress core/ dynamic balance as tolerated.
--- NOTE | 2017-12-02 16:30 | PT.OTN ---
Current Diagnoses Hemiplegia, unspecified affecting right dominant side (12/02/17) Physical Therapy Treatment Note PT-OP-A Visit Information Start: 09/03/17 06:11 Freq: Status: Active Protocol: Document 12/02/17 16:30 RCC (Rec: 12/02/17 18:01 RCC [email or web address]) Out-Patient Physical Therapy Visit Information Visit Information Visit Type Treatment Note Visit Start Time 15:50 Visit Stop Time 16:30 Total Visit Minutes 40 Visit Number 13 Number of ROUTE SALES ASSOCIATE Visits 0 Evaluation Information Evaluation Date 09/02/17 PT-OP-B Current Condition Start: 09/03/17 06:11 Freq: Status: Active Protocol: Document 09/02/17 09:45 AMB (Rec: 09/03/17 06:44 AMB [email or web address]) Current Condition History of Current Condition Onset Date 08/21/17 History of Current Condition The patient reports he had sudden onset R UE and LE weakness on August 21. Since then he feels that his arm is getting better, but his leg continues to be weak; he notices issues with foot drop. 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 and he has returned to work. His is a RN who does check his blood pressure. It was high while at the hospital, but otherwise has been around 120/80. He does admit to one dizzy spell on August 29 that lasted about a minute. It was in the evening, and he reports spinning and lightheadedness but it has not recurred. Prior Treatments and Tests He went to [facility] and had a CT, which did not show anything. He was transferred to [place] in [place], where he underwent MRI which also did not show anything. He is being followed by a neurologist, who suggested that he had a small CVA. Future Testing and Treatments Planned Lumbar MRI to rule out MS per patient. Treatment Goals Patient/Caregiver Goals Walk normally, ride bikes with his kids, be able to run 1.5 miles by November Prior Functional Status Baseline Function- ADL's Independent Baseline Function- Mobility Independent Baseline Function- Recreation/Hobbies The patient was able to jog and bike without issue Current Functional Impairments (Reported) Functional Limitations- ADL's slower with dressing, unable to stand on one leg to perform lower body dressing Functional Limitations- Mobility/Gait Slow, difficult gait takes mental concentration not to catch his toes, no falls to the ground but many near misses where he catches himself due to catching his toes. Personal Factors Other Personal Factors That May Effect Pt's work schedule limits his Therapy/Recovery availability for appointments to afternoon. Busy working and with family limits his ability to rest. PT-OP-C Subjective Start: 09/03/17 06:11 Freq: Status: Active Protocol: Document 12/02/17 16:30 RCC (Rec: 12/02/17 18:01 RCC [email or web address]) OP-PT Subjective Patient Comments Patient Comments Pt states he is doing his HEP. He still is unsure if he would pass his fitness test with the biking. PT-OP-D Balance Start: 09/03/17 06:11 Freq: Status: Active Protocol: Document 11/09/17 14:30 AMB (Rec: 11/09/17 15:47 AMB [email or web address]) Balance Tests Single Limb Standing Single Limb- Right 5-10 seconds Single Limb- Left 15 seconds PT-OP-G Mobility & Gait Start: 09/03/17 06:11 Freq: Status: Active Protocol: Document 09/02/17 09:45 AMB (Rec: 09/03/17 09:28 AMB [email or web address]) OP Gait Assessment Assistive Devices Assistive Device None Factors Limiting Gait Function Factors Limiting Gait Function Decreased Strength Comments Gait Comments Steppage gait to compensate for foot drop, even with AFO pt continues to limp but it is significantly improved. Decreased weightbearing tolerance on the R, limits stance time on the right. Stair Climbing Evaluation Evaluation Level of Assist On Stairs Standby Assistance Devices Stair Climbing Assistive Devices Right Railing Technique/Endurance Stair Climbing Direction Ascend and Descend Stair Climbing Technique Step to Step Number of Steps Climbed 4 PT-OP-H Neuro Start: 09/03/17 06:11 Freq: Status: Active Protocol: Document 09/02/17 09:45 AMB (Rec: 09/03/17 09:28 AMB [email or web address]) Sensation Evaluation Location Details Right Leg Light Touch Intact/Normal Comments Summary Comments Pt able to distiguish light touch R vs L with eyes closed 100%, however pt subjectively notices diminished sensation distal to the knee. Deep Tendon Reflex & Clonus Assessment Ankle Clonus Right Clonus Assessment Absent Muscle Tone Tone Assessment Right Lower Extremity Flexor Tone Description Normal Extensor Tone Description Normal PT-OP-M Strength Start: 09/03/17 06:11 Freq: Status: Active Protocol: Document 11/09/17 14:30 AMB (Rec: 11/09/17 15:47 AMB [email or web address]) Hip Strength Hip Manual Muscle Testing Right Flexion (L2) 4- Good- Extension (S1) 4+ Good+ Abduction 4 Good Knee Strength Knee Manual Muscle Testing Right Flexion (S2) 4 Good Extension (L3) 4 Good Ankle/Foot Strength Ankle and Foot Manual Muscle Testing Right Dorsiflexion (L4) 3+ Fair+ Plantarflexion (S1) 4 Good PT-OP-Q Treatments Start: 09/03/17 06:11 Freq: Status: Active Protocol: Document 12/02/17 16:30 RCC (Rec: 12/02/17 18:01 RCC [email or web address]) Cardio Equipment Bicycle (Upright) Duration (Minutes) 7 Resistance 10 Gym Equipment Shuttle Recovery Unilateral Heel Raises Details AFO off Resistance 50# Shuttle Recovery Platform Stable Reps/Time to fatigue Bilateral Heel Raises Details AFO off Resistance 50# Shuttle Recovery Platform Stable Reps/Time to fatigue Unilateral Squats Resistance 50# Shuttle Recovery Platform Unstable Reps/Time to fatigue Bilateral Squats Resistance 75# Shuttle Recovery Platform Stable Reps/Time to fatigue Sport Cord 1 Exercise Details forward/backward walk and lunges Cord/Resistance blue/white Therapeutic Exercises Supine Exercises 2 Supine Exercise Name bridges (single leg) Side bilateral Equipment Used yellow disc under L foot Reps/Minutes 2x10 Prone Exercises 1 Prone Exercise Name plank Reps/Minutes 1x1 min Comments forearms Sidelying Exercises 1 Sidelying Exercise Name side plank Reps/Minutes 30x2 PT-OP-T Assessment and Plan Start: 09/03/17 06:11 Freq: Status: Active Protocol: Document 12/02/17 16:30 RCC (Rec: 12/02/17 18:01 RCC [email or web address]) Physical Therapy Assessment Assessment Summary Assessment Pt still fatigues with RLE and R side of core compared to the L, but is highly motivated to improve function and strength. Pt noted that the resistance on the bike he will be performing his performance test is with higher resistance, plan to progress this as tolerated. Physical Therapy Plan Frequency and Duration Frequency of Treatment 2x/Week Duration of Treatment 8 weeks Plan of Care Start Date 11/09/17 Plan of Care End Date 01/04/18 Next Visit Focus/Plan Next Note Type Treatment Note Next Visit Plan increase resistance of upright bike and rpm as tolerated, progress core stability.
--- NOTE | 2017-12-07 17:28 | PT.OTN ---
Current Diagnoses Hemiplegia, unspecified affecting right dominant side (12/07/17) Physical Therapy Treatment Note PT-OP-A Visit Information Start: 09/03/17 06:11 Freq: Status: Active Protocol: Document 12/07/17 14:00 GGD (Rec: 12/07/17 17:27 GGD [email or web address]) Out-Patient Physical Therapy Visit Information Visit Information Visit Type Treatment Note Visit Start Time 16:00 Visit Stop Time 16:40 Total Visit Minutes 40 Visit Number 14 Number of TOY PACKER Visits 1 Evaluation Information Evaluation Date 09/02/17 PT-OP-B Current Condition Start: 09/03/17 06:11 Freq: Status: Active Protocol: Document 09/02/17 09:45 AMB (Rec: 09/03/17 06:44 AMB [email or web address]) Current Condition History of Current Condition Onset Date 08/21/17 History of Current Condition The patient reports he had sudden onset R UE and LE weakness on August 21. Since then he feels that his arm is getting better, but his leg continues to be weak; he notices issues with foot drop. 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 His is a RN who does check his blood pressure. It was high while at the hospital, but otherwise has been around 120/80. He does admit to one dizzy spell on August 29 that lasted about a minute. It was in the evening, and he reports spinning and lightheadedness but it has not recurred. Prior Treatments and Tests He went to [facility] and had a CT, which did not show anything. He was transferred to [place] in [place], where he underwent MRI which also did not show anything. He is being followed by a neurologist, who suggested that he had a small CVA. Future Testing and Treatments Planned Lumbar MRI to rule out MS per patient. Treatment Goals Patient/Caregiver Goals Walk normally, ride bikes with his kids, be able to run 1.5 miles by November Prior Functional Status Baseline Function- ADL's Independent Baseline Function- Mobility Independent Baseline Function- Recreation/Hobbies The patient was able to jog and bike without issue Current Functional Impairments (Reported) Functional Limitations- ADL's slower with dressing, unable to stand on one leg to perform lower body dressing Functional Limitations- Mobility/Gait Slow, difficult gait takes mental concentration not to catch his toes, no falls to the ground but many near misses where he catches himself due to catching his toes. Personal Factors Other Personal Factors That May Effect Pt's work schedule limits his Therapy/Recovery availability for appointments to afternoon. Busy working and with family limits his ability to rest. PT-OP-C Subjective Start: 09/03/17 06:11 Freq: Status: Active Protocol: Document 12/07/17 14:00 GGD (Rec: 12/07/17 17:27 GGD [email or web address]) OP-PT Subjective Patient Comments Patient Comments Pt states he fatigues on bike after 8 minutes. PT-OP-D Balance Start: 09/03/17 06:11 Freq: Status: Active Protocol: Document 11/09/17 14:30 AMB (Rec: 11/09/17 15:47 AMB [email or web address]) Balance Tests Single Limb Standing Single Limb- Right 5-10 seconds Single Limb- Left 15 seconds PT-OP-G Mobility & Gait Start: 09/03/17 06:11 Freq: Status: Active Protocol: Document 09/02/17 09:45 AMB (Rec: 09/03/17 09:28 AMB [email or web address]) OP Gait Assessment Assistive Devices Assistive Device None Factors Limiting Gait Function Factors Limiting Gait Function Decreased Strength Comments Gait Comments Steppage gait to compensate for foot drop, even with AFO pt continues to limp but it is significantly improved. Decreased weightbearing tolerance on the R, limits stance time on the right. Stair Climbing Evaluation Evaluation Level of Assist On Stairs Standby Assistance Devices Stair Climbing Assistive Devices Right Railing Technique/Endurance Stair Climbing Direction Ascend and Descend Stair Climbing Technique Step to Step Number of Steps Climbed 4 PT-OP-H Neuro Start: 09/03/17 06:11 Freq: Status: Active Protocol: Document 09/02/17 09:45 AMB (Rec: 09/03/17 09:28 AMB [email or web address]) Sensation Evaluation Location Details Right Leg Light Touch Intact/Normal Comments Summary Comments Pt able to distiguish light touch R vs L with eyes closed 100%, however pt subjectively notices diminished sensation distal to the knee. Deep Tendon Reflex & Clonus Assessment Ankle Clonus Right Clonus Assessment Absent Muscle Tone Tone Assessment Right Lower Extremity Flexor Tone Description Normal Extensor Tone Description Normal PT-OP-M Strength Start: 09/03/17 06:11 Freq: Status: Active Protocol: Document 11/09/17 14:30 AMB (Rec: 11/09/17 15:47 AMB [email or web address]) Hip Strength Hip Manual Muscle Testing Right Flexion (L2) 4- Good- Extension (S1) 4+ Good+ Abduction 4 Good Knee Strength Knee Manual Muscle Testing Right Flexion (S2) 4 Good Extension (L3) 4 Good Ankle/Foot Strength Ankle and Foot Manual Muscle Testing Right Dorsiflexion (L4) 3+ Fair+ Plantarflexion (S1) 4 Good PT-OP-Q Treatments Start: 09/03/17 06:11 Freq: Status: Active Protocol: Document 12/07/17 14:00 GGD (Rec: 12/07/17 17:27 GGD [email or web address]) Cardio Equipment Bicycle (Upright) Duration (Minutes) 7 Resistance 10 Gym Equipment Shuttle Recovery Unilateral Heel Raises Details AFO off Resistance 50# Shuttle Recovery Platform Stable Reps/Time to fatigue Bilateral Heel Raises Details AFO off Resistance 50# Shuttle Recovery Platform Stable Reps/Time to fatigue Unilateral Squats Resistance 50# Shuttle Recovery Platform Unstable Reps/Time to fatigue Bilateral Squats Resistance 75# Shuttle Recovery Platform Stable Reps/Time to fatigue Therapeutic Ball 3 Exercise Details reverse curls Ball Size/Color 55 cm Body Position Supine Reps/Duration 20 Comments ball between knees. Sport Cord 1 Exercise Details forward/backward walk and lunges Cord/Resistance blue/white Therapeutic Exercises Supine Exercises 2 Supine Exercise Name bridges (single leg) Side bilateral Equipment Used yellow disc under L foot Reps/Minutes 2x10 Prone Exercises 1 Prone Exercise Name plank Reps/Minutes 1x1 min Comments forearms Sidelying Exercises 1 Sidelying Exercise Name side plank Reps/Minutes 30x2 PT-OP-T Assessment and Plan Start: 09/03/17 06:11 Freq: Status: Active Protocol: Document 12/07/17 14:00 GGD (Rec: 12/07/17 17:27 GGD [email or web address]) Physical Therapy Assessment Assessment Summary Assessment Pt fatigues with strengthening . He improving with LE stability. Physical Therapy Plan Frequency and Duration Frequency of Treatment 2x/Week Duration of Treatment 8 weeks Plan of Care Start Date 11/09/17 Plan of Care End Date 01/04/18 Therapeutic Interventions Therapeutic Interventions Balance Training Gait Training Home Exercise Program Manual Therapy Neuromuscular Re-education Therapeutic Activities Therapeutic Exercises Modalities Cold Pack/Ice Massage Electric Stimulation Hot Packs Next Visit Focus/Plan Next Note Type Treatment Note Next Visit Plan increase resistance of upright bike and rpm as tolerated, progress core stability.
--- NOTE | 2017-12-16 15:15 | PT.OTN ---
Current Diagnoses Hemiplegia, unspecified affecting right dominant side (12/16/17) Physical Therapy Treatment Note PT-OP-A Visit Information Start: 09/03/17 06:11 Freq: Status: Active Protocol: Document 12/16/17 15:15 DLM (Rec: 12/16/17 16:45 DLM [email or web address]) Out-Patient Physical Therapy Visit Information Visit Information Visit Start Time 15:15 Visit Stop Time 16:07 Total Visit Minutes 52 Visit Number 15 Number of ENTERPRISE APPLICATION ANALYST Visits 0 Evaluation Information Evaluation Date 09/02/17 PT-OP-B Current Condition Start: 09/03/17 06:11 Freq: Status: Active Protocol: Document 09/02/17 09:45 AMB (Rec: 09/03/17 06:44 AMB [email or web address]) Current Condition History of Current Condition Onset Date 08/21/17 History of Current Condition The patient reports he had sudden onset R UE and LE weakness on August 21. Since then he feels that his arm is getting better, but his leg continues to be weak; he notices issues with foot drop. 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 His is a RN who does check his blood pressure. It was high while at the hospital, but otherwise has been around 120/80. He does admit to one dizzy spell on August 29 that lasted about a minute. It was in the evening, and he reports spinning and lightheadedness but it has not recurred. Prior Treatments and Tests He went to [facility] and had a CT, which did not show anything. He was transferred to [place] in [place], where he underwent MRI which also did not show anything. He is being followed by a neurologist, who suggested that he had a small CVA. Future Testing and Treatments Planned Lumbar MRI to rule out MS per patient. Treatment Goals Patient/Caregiver Goals Walk normally, ride bikes with his kids, be able to run 1.5 miles by November Prior Functional Status Baseline Function- ADL's Independent Baseline Function- Mobility Independent Baseline Function- Recreation/Hobbies The patient was able to jog and bike without issue Current Functional Impairments (Reported) Functional Limitations- ADL's slower with dressing, unable to stand on one leg to perform lower body dressing Functional Limitations- Mobility/Gait Slow, difficult gait takes mental concentration not to catch his toes, no falls to the ground but many near misses where he catches himself due to catching his toes. Personal Factors Other Personal Factors That May Effect Pt's work schedule limits his Therapy/Recovery availability for appointments to afternoon. Busy working and with family limits his ability to rest. PT-OP-C Subjective Start: 09/03/17 06:11 Freq: Status: Active Protocol: Document 12/16/17 15:15 DLM (Rec: 12/16/17 16:45 DLM [email or web address]) OP-PT Subjective Patient Comments Patient Comments He is riding his moutain bike at home. He feels he is still getting better. Walks around house without his brace but still can trip easily due to toe drag. PT-OP-D Balance Start: 09/03/17 06:11 Freq: Status: Active Protocol: Document 11/09/17 14:30 AMB (Rec: 11/09/17 15:47 AMB [email or web address]) Balance Tests Single Limb Standing Single Limb- Right 5-10 seconds Single Limb- Left 15 seconds PT-OP-G Mobility & Gait Start: 09/03/17 06:11 Freq: Status: Active Protocol: Document 09/02/17 09:45 AMB (Rec: 09/03/17 09:28 AMB [email or web address]) OP Gait Assessment Assistive Devices Assistive Device None Factors Limiting Gait Function Factors Limiting Gait Function Decreased Strength Comments Gait Comments Steppage gait to compensate for foot drop, even with AFO pt continues to limp but it is significantly improved. Decreased weightbearing tolerance on the R, limits stance time on the right. Stair Climbing Evaluation Evaluation Level of Assist On Stairs Standby Assistance Devices Stair Climbing Assistive Devices Right Railing Technique/Endurance Stair Climbing Direction Ascend and Descend Stair Climbing Technique Step to Step Number of Steps Climbed 4 PT-OP-H Neuro Start: 09/03/17 06:11 Freq: Status: Active Protocol: Document 09/02/17 09:45 AMB (Rec: 09/03/17 09:28 AMB [email or web address]) Sensation Evaluation Location Details Right Leg Light Touch Intact/Normal Comments Summary Comments Pt able to distiguish light touch R vs L with eyes closed 100%, however pt subjectively notices diminished sensation distal to the knee. Deep Tendon Reflex & Clonus Assessment Ankle Clonus Right Clonus Assessment Absent Muscle Tone Tone Assessment Right Lower Extremity Flexor Tone Description Normal Extensor Tone Description Normal PT-OP-M Strength Start: 09/03/17 06:11 Freq: Status: Active Protocol: Document 11/09/17 14:30 AMB (Rec: 11/09/17 15:47 AMB [email or web address]) Hip Strength Hip Manual Muscle Testing Right Flexion (L2) 4- Good- Extension (S1) 4+ Good+ Abduction 4 Good Knee Strength Knee Manual Muscle Testing Right Flexion (S2) 4 Good Extension (L3) 4 Good Ankle/Foot Strength Ankle and Foot Manual Muscle Testing Right Dorsiflexion (L4) 3+ Fair+ Plantarflexion (S1) 4 Good PT-OP-Q Treatments Start: 09/03/17 06:11 Freq: Status: Active Protocol: Document 12/16/17 15:15 DLM (Rec: 12/16/17 16:45 DLM [email or web address]) Cardio Equipment Bicycle (Upright) Duration (Minutes) 8 Resistance 12 Seat Position 8 Gym Equipment Shuttle Recovery Unilateral Heel Raises Details AFO off Resistance 50# Shuttle Recovery Platform Stable Reps/Time to fatigue Bilateral Heel Raises Details AFO off Resistance 50# Shuttle Recovery Platform Stable Reps/Time to fatigue Unilateral Squats Details AFO off Resistance 50# Shuttle Recovery Platform Unstable Reps/Time to fatigue Bilateral Squats Details AFO off Resistance 75# Shuttle Recovery Platform Stable Reps/Time to fatigue Therapeutic Ball 3 Exercise Details reverse curls Ball Size/Color 55 cm Body Position Supine Reps/Duration 25 total Comments ball between knees. Therapeutic Exercises Supine Exercises 2 Supine Exercise Name bridges (single leg) Side bilateral Equipment Used yellow disc under L foot Reps/Minutes 2x10 Prone Exercises 1 Prone Exercise Name plank Reps/Minutes 1x1 min Comments forearms Sidelying Exercises 1 Sidelying Exercise Name side plank Side bilateral Reps/Minutes 1 min Other Exercises 1 Other Exercise Name heel and toe walking Reps/Minutes 4 laps each Comments focus on ankle control Gait Training Gait Activity 2 Description step through sequencing to decrease toe drag Device Used stepping over small obstacle Comments done statically with forward and back motion right LE only PT-OP-T Assessment and Plan Start: 09/03/17 06:11 Freq: Status: Active Protocol: Document 12/16/17 15:15 DLM (Rec: 12/16/17 16:45 DLM [email or web address]) Physical Therapy Assessment Progress Towards Goals Progress Towards Goals Progressing Toward Goals Assessment Summary Assessment He tolerated treatment well with fatigue. He reports fatigue is also still an issue at home. Motor control issue observed with step through sequence causing him to loose his functional DF when hip flexion activated during stepping sequence. He continues to demonstrate good rehab potential. He is motivated to progress out of AFO. Physical Therapy Plan Frequency and Duration Frequency of Treatment 2x/Week Duration of Treatment 8 weeks Plan of Care Start Date 11/09/17 Plan of Care End Date 01/04/18 Therapeutic Interventions Therapeutic Interventions Balance Training Gait Training Home Exercise Program Manual Therapy Neuromuscular Re-education Therapeutic Activities Therapeutic Exercises Modalities Cold Pack/Ice Massage Electric Stimulation Hot Packs Next Visit Focus/Plan Next Note Type Treatment Note Next Visit Plan progress functional ankle strength with motor control pattern for step through sequencing
--- NOTE | 2018-01-04 16:31 | PT.OTN ---
Current Diagnoses Hemiplegia, unspecified affecting right dominant side (01/04/18) Physical Therapy Treatment Note PT-OP-A Visit Information Start: 09/03/17 06:11 Freq: Status: Active Protocol: Document 01/04/18 14:30 DCW (Rec: 01/04/18 16:30 DCW [id number]) Out-Patient Physical Therapy Visit Information Visit Information Visit Type Treatment Note Visit Start Time 14:30 Visit Stop Time 15:15 Total Visit Minutes 45 Visit Number 16 Number of LICENSED CLINICAL SOCIAL WORKER Visits 1 Evaluation Information Evaluation Date 09/02/17 PT-OP-B Current Condition Start: 09/03/17 06:11 Freq: Status: Active Protocol: Document 09/02/17 09:45 AMB (Rec: 09/03/17 06:44 AMB [email or web address]) Current Condition History of Current Condition Onset Date 08/21/17 History of Current Condition The patient reports he had sudden onset R UE and LE weakness on August 21. Since then he feels that his arm is getting better, but his leg continues to be weak; he notices issues with foot drop. 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 His is a RN who does check his blood pressure. It was high while at the hospital, but otherwise has been around 120/80. He does admit to one dizzy spell on August 29 that lasted about a minute. It was in the evening, and he reports spinning and lightheadedness but it has not recurred. Prior Treatments and Tests He went to [facility] and had a CT, which did not show anything. He was transferred to [place] in [place], where he underwent MRI which also did not show anything. He is being followed by a neurologist, who suggested that he had a small CVA. Future Testing and Treatments Planned Lumbar MRI to rule out MS per patient. Treatment Goals Patient/Caregiver Goals Walk normally, ride bikes with his kids, be able to run 1.5 miles by November Prior Functional Status Baseline Function- ADL's Independent Baseline Function- Mobility Independent Baseline Function- Recreation/Hobbies The patient was able to jog and bike without issue Current Functional Impairments (Reported) Functional Limitations- ADL's slower with dressing, unable to stand on one leg to perform lower body dressing Functional Limitations- Mobility/Gait Slow, difficult gait takes mental concentration not to catch his toes, no falls to the ground but many near misses where he catches himself due to catching his toes. Personal Factors Other Personal Factors That May Effect Pt's work schedule limits his Therapy/Recovery availability for appointments to afternoon. Busy working and with family limits his ability to rest. PT-OP-C Subjective Start: 09/03/17 06:11 Freq: Status: Active Protocol: Document 01/04/18 14:30 DCW (Rec: 01/04/18 16:30 DCW [id number]) OP-PT Subjective Patient Comments Patient Comments Pt reports he has an appointment with his physician to hopefully get another waiver for his fitness test, because while he is currently confident with his sit-ups and push-ups, but much less so with the biking portion of his test. PT-OP-D Balance Start: 09/03/17 06:11 Freq: Status: Active Protocol: Document 11/09/17 14:30 AMB (Rec: 11/09/17 15:47 AMB [email or web address]) Balance Tests Single Limb Standing Single Limb- Right 5-10 seconds Single Limb- Left 15 seconds PT-OP-G Mobility & Gait Start: 09/03/17 06:11 Freq: Status: Active Protocol: Document 09/02/17 09:45 AMB (Rec: 09/03/17 09:28 AMB [email or web address]) OP Gait Assessment Assistive Devices Assistive Device None Factors Limiting Gait Function Factors Limiting Gait Function Decreased Strength Comments Gait Comments Steppage gait to compensate for foot drop, even with AFO pt continues to limp but it is significantly improved. Decreased weightbearing tolerance on the R, limits stance time on the right. Stair Climbing Evaluation Evaluation Level of Assist On Stairs Standby Assistance Devices Stair Climbing Assistive Devices Right Railing Technique/Endurance Stair Climbing Direction Ascend and Descend Stair Climbing Technique Step to Step Number of Steps Climbed 4 PT-OP-H Neuro Start: 09/03/17 06:11 Freq: Status: Active Protocol: Document 09/02/17 09:45 AMB (Rec: 09/03/17 09:28 AMB [email or web address]) Sensation Evaluation Location Details Right Leg Light Touch Intact/Normal Comments Summary Comments Pt able to distiguish light touch R vs L with eyes closed 100%, however pt subjectively notices diminished sensation distal to the knee. Deep Tendon Reflex & Clonus Assessment Ankle Clonus Right Clonus Assessment Absent Muscle Tone Tone Assessment Right Lower Extremity Flexor Tone Description Normal Extensor Tone Description Normal PT-OP-M Strength Start: 09/03/17 06:11 Freq: Status: Active Protocol: Document 11/09/17 14:30 AMB (Rec: 11/09/17 15:47 AMB [email or web address]) Hip Strength Hip Manual Muscle Testing Right Flexion (L2) 4- Good- Extension (S1) 4+ Good+ Abduction 4 Good Knee Strength Knee Manual Muscle Testing Right Flexion (S2) 4 Good Extension (L3) 4 Good Ankle/Foot Strength Ankle and Foot Manual Muscle Testing Right Dorsiflexion (L4) 3+ Fair+ Plantarflexion (S1) 4 Good PT-OP-Q Treatments Start: 09/03/17 06:11 Freq: Status: Active Protocol: Document 01/04/18 14:30 DCW (Rec: 01/04/18 16:30 DCW [id number]) Cardio Equipment Bicycle (Upright) Duration (Minutes) 8 Resistance 12 Seat Position 8 Gym Equipment Shuttle Recovery Unilateral Heel Raises Details AFO off Resistance 50# Shuttle Recovery Platform Stable Reps/Time to fatigue Bilateral Heel Raises Details AFO off Resistance 100# Shuttle Recovery Platform Stable Reps/Time to fatigue Unilateral Squats Details AFO off Resistance 50# Shuttle Recovery Platform Unstable Reps/Time to fatigue Bilateral Squats Details AFO off Resistance 100# Shuttle Recovery Platform Stable Reps/Time to fatigue Therapeutic Exercises Standing Exercises 7 Standing Exercise Name Step-up/step downs Side bilateral Equipment Used 6 step 5 Standing Exercise Name Side step squat, forward and backward Resistance Green Equipment Used Thera band Reps/Minutes 2 each direction Comments without AFO Neuro Re-Education Treatment Balance Activities 1 Details SLS Surface Blue Air disc PT-OP-T Assessment and Plan Start: 09/03/17 06:11 Freq: Status: Active Protocol: Document 01/04/18 14:30 DCW (Rec: 01/04/18 16:30 DCW [id number]) Physical Therapy Assessment Impairments Impairments Balance Gait Sensation Strength Goals 3 Impairment Balance Short Term Goal (STG) The patient will show improved balance by performing single leg stance for 15 seconds without loss of balance. PROGRESS MADE- inconsistent 10 seconds STG Duration 8 weeks [place] Kil[employer] Operator Goal (LTG) The patient will show improved balance by being able to get on and off his bicycle without assistance. LTG Duration MET 2 Impairment Strength Short Term Goal (STG) The patient will show improved strength by being able to perform 5 single leg heel raises on the right. NOT FULL RANGE, but can do partial range STG Duration 8 weeks Senior Care Goal (LTG) The patient will show improved strength by performing a full squat. LTG Duration MET 1 Impairment Gait Short Term Goal (STG) The patient will ambulate in the community for 30 minutes ( curbs, hills, sand, gravel) without a steppage gait and without loss of balance. PARTIALLY MET- fatigues quickly with AFO STG Duration 8 weeks Senior Care Goal (LTG) The patient will ascend and descend a flight of stairs with an alternating step pattern without requiring a railing. LTG Duration MET Assessment Summary Assessment Continues to make good progress, still fatigues quickly with most activities, and then quality of motions begin to decline. Physical Therapy Plan Frequency and Duration Frequency of Treatment 2x/Week Duration of Treatment 8 weeks Plan of Care Start Date 11/09/17 Plan of Care End Date 01/04/18 Therapeutic Interventions Therapeutic Interventions Balance Training Gait Training Home Exercise Program Manual Therapy Neuromuscular Re-education Therapeutic Activities Therapeutic Exercises Modalities Cold Pack/Ice Massage Electric Stimulation Hot Packs Next Visit Focus/Plan Next Note Type Treatment Note Next Visit Plan progress functional ankle strength with motor control pattern for step through sequencing
--- NOTE | 2018-01-11 14:49 | PT.OTN ---
Current Diagnoses Hemiplegia, unspecified affecting right dominant side (01/11/18) Physical Therapy Treatment Note PT-OP-A Visit Information Start: 09/03/17 06:11 Freq: Status: Active Protocol: Document 01/04/18 14:30 DCW (Rec: 01/04/18 16:30 DCW [id number]) Out-Patient Physical Therapy Visit Information Visit Information Visit Type Treatment Note Visit Start Time 14:30 Visit Stop Time 15:15 Total Visit Minutes 45 Visit Number 16 Number of TECHNICAL SALES DIRECTOR Visits 1 Evaluation Information Evaluation Date 09/02/17 PT-OP-B Current Condition Start: 09/03/17 06:11 Freq: Status: Active Protocol: Document 09/02/17 09:45 AMB (Rec: 09/03/17 06:44 AMB [email or web address]) Current Condition History of Current Condition Onset Date 08/21/17 History of Current Condition The patient reports he had sudden onset R UE and LE weakness on August 21. Since then he feels that his arm is getting better, but his leg continues to be weak; he notices issues with foot drop. 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 His is a RN who does check his blood pressure. It was high while at the hospital, but otherwise has been around 120/80. He does admit to one dizzy spell on August 29 that lasted about a minute. It was in the evening, and he reports spinning and lightheadedness but it has not recurred. Prior Treatments and Tests He went to [facility] and had a CT, which did not show anything. He was transferred to [place] in [place], where he underwent MRI which also did not show anything. He is being followed by a neurologist, who suggested that he had a small CVA. Future Testing and Treatments Planned Lumbar MRI to rule out MS per patient. Treatment Goals Patient/Caregiver Goals Walk normally, ride bikes with his kids, be able to run 1.5 miles by November Prior Functional Status Baseline Function- ADL's Independent Baseline Function- Mobility Independent Baseline Function- Recreation/Hobbies The patient was able to jog and bike without issue Current Functional Impairments (Reported) Functional Limitations- ADL's slower with dressing, unable to stand on one leg to perform lower body dressing Functional Limitations- Mobility/Gait Slow, difficult gait takes mental concentration not to catch his toes, no falls to the ground but many near misses where he catches himself due to catching his toes. Personal Factors Other Personal Factors That May Effect Pt's work schedule limits his Therapy/Recovery availability for appointments to afternoon. Busy working and with family limits his ability to rest. PT-OP-C Subjective Start: 09/03/17 06:11 Freq: Status: Active Protocol: Document 01/11/18 14:37 SA (Rec: 01/11/18 14:47 SA [email or web address]) OP-PT Subjective Patient Comments Patient Comments Pt had MD appointmet this morning and got waiver for his fitness test. States he is feeling stronger. Patient Reported Progress Improving PT-OP-D Balance Start: 09/03/17 06:11 Freq: Status: Active Protocol: Document 11/09/17 14:30 AMB (Rec: 11/09/17 15:47 AMB [email or web address]) Balance Tests Single Limb Standing Single Limb- Right 5-10 seconds Single Limb- Left 15 seconds PT-OP-G Mobility & Gait Start: 09/03/17 06:11 Freq: Status: Active Protocol: Document 09/02/17 09:45 AMB (Rec: 09/03/17 09:28 AMB [email or web address]) OP Gait Assessment Assistive Devices Assistive Device None Factors Limiting Gait Function Factors Limiting Gait Function Decreased Strength Comments Gait Comments Steppage gait to compensate for foot drop, even with AFO pt continues to limp but it is significantly improved. Decreased weightbearing tolerance on the R, limits stance time on the right. Stair Climbing Evaluation Evaluation Level of Assist On Stairs Standby Assistance Devices Stair Climbing Assistive Devices Right Railing Technique/Endurance Stair Climbing Direction Ascend and Descend Stair Climbing Technique Step to Step Number of Steps Climbed 4 PT-OP-H Neuro Start: 09/03/17 06:11 Freq: Status: Active Protocol: Document 09/02/17 09:45 AMB (Rec: 09/03/17 09:28 AMB [email or web address]) Sensation Evaluation Location Details Right Leg Light Touch Intact/Normal Comments Summary Comments Pt able to distiguish light touch R vs L with eyes closed 100%, however pt subjectively notices diminished sensation distal to the knee. Deep Tendon Reflex & Clonus Assessment Ankle Clonus Right Clonus Assessment Absent Muscle Tone Tone Assessment Right Lower Extremity Flexor Tone Description Normal Extensor Tone Description Normal PT-OP-M Strength Start: 09/03/17 06:11 Freq: Status: Active Protocol: Document 11/09/17 14:30 AMB (Rec: 11/09/17 15:47 AMB [email or web address]) Hip Strength Hip Manual Muscle Testing Right Flexion (L2) 4- Good- Extension (S1) 4+ Good+ Abduction 4 Good Knee Strength Knee Manual Muscle Testing Right Flexion (S2) 4 Good Extension (L3) 4 Good Ankle/Foot Strength Ankle and Foot Manual Muscle Testing Right Dorsiflexion (L4) 3+ Fair+ Plantarflexion (S1) 4 Good PT-OP-Q Treatments Start: 09/03/17 06:11 Freq: Status: Active Protocol: Document 01/11/18 14:37 SA (Rec: 01/11/18 14:47 SA [email or web address]) Cardio Equipment Bicycle (Upright) Duration (Minutes) 9 Resistance 12 Seat Position 8 Gym Equipment Shuttle Recovery Unilateral Heel Raises Details AFO off Resistance 50# Shuttle Recovery Platform Stable Reps/Time to fatigue Bilateral Heel Raises Details AFO off Resistance 100# Shuttle Recovery Platform Stable Reps/Time to fatigue Unilateral Squats Details AFO off Resistance 75# Reps/Time to fatigue Bilateral Squats Details AFO off Resistance 125# Reps/Time to fatigue Sport Cord 1 Exercise Details lateral side stepping Cord/Resistance Green Therapeutic Exercises Other Exercises 1 Other Exercise Name seated resisted ankle DF Equipment Used Red TB Reps/Minutes 15 reps PT-OP-T Assessment and Plan Start: 09/03/17 06:11 Freq: Status: Active Protocol: Document 01/11/18 14:37 SA (Rec: 01/11/18 14:47 SA [email or web address]) Physical Therapy Assessment Assessment Summary Assessment Pt continues to progress, focuused R ankle DF work today with rapid fatigue.
--- NOTE | 2018-02-02 15:15 | PT.OTN ---
Current Diagnoses Hemiplegia, unspecified affecting right dominant side (02/02/18) Physical Therapy Treatment Note PT-OP-A Visit Information Start: 09/03/17 06:11 Freq: Status: Active Protocol: Document 02/02/18 14:30 DCW (Rec: 02/02/18 15:15 DCW [id number]) Out-Patient Physical Therapy Visit Information Visit Information Visit Type Progress Note Visit Start Time 14:30 Visit Stop Time 15:00 Total Visit Minutes 30 Visit Number 17 Number of MACHINE DESIGN TEACHER Visits 0 Evaluation Information Evaluation Date 09/02/17 PT-OP-B Current Condition Start: 09/03/17 06:11 Freq: Status: Active Protocol: Document 09/02/17 09:45 AMB (Rec: 09/03/17 06:44 AMB [email or web address]) Current Condition History of Current Condition Onset Date 08/21/17 History of Current Condition The patient reports he had sudden onset R UE and LE weakness on August 21. Since then he feels that his arm is getting better, but his leg continues to be weak; he notices issues with foot drop. 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 His is a RN who does check his blood pressure. It was high while at the hospital, but otherwise has been around 120/80. He does admit to one dizzy spell on August 29 that lasted about a minute. It was in the evening, and he reports spinning and lightheadedness but it has not recurred. Prior Treatments and Tests He went to [facility] and had a CT, which did not show anything. He was transferred to [facility] in [place], where he underwent MRI which also did not show anything. He is being followed by a neurologist, who suggested that he had a small CVA. Future Testing and Treatments Planned Lumbar MRI to rule out MS per patient. Treatment Goals Patient/Caregiver Goals Walk normally, ride bikes with his kids, be able to run 1.5 miles by November Prior Functional Status Baseline Function- ADL's Independent Baseline Function- Mobility Independent Baseline Function- Recreation/Hobbies The patient was able to jog and bike without issue Current Functional Impairments (Reported) Functional Limitations- ADL's slower with dressing, unable to stand on one leg to perform lower body dressing Functional Limitations- Mobility/Gait Slow, difficult gait takes mental concentration not to catch his toes, no falls to the ground but many near misses where he catches himself due to catching his toes. Personal Factors Other Personal Factors That May Effect Pt's work schedule limits his Therapy/Recovery availability for appointments to afternoon. Busy working and with family limits his ability to rest. PT-OP-C Subjective Start: 09/03/17 06:11 Freq: Status: Active Protocol: Document 02/02/18 14:30 DCW (Rec: 02/02/18 15:15 DCW [id number]) OP-PT Subjective Patient Comments Patient Comments Pt feels that his biggest, and really only, limiting factor is his foot drop resulting in steppage gait pattern. PT-OP-D Balance Start: 09/03/17 06:11 Freq: Status: Active Protocol: Document 02/02/18 14:30 DCW (Rec: 02/02/18 15:05 DCW [id number]) Balance Tests Single Limb Standing Single Limb- Right 60+ seconds Single Limb- Left 60+ seconds PT-OP-G Mobility & Gait Start: 09/03/17 06:11 Freq: Status: Active Protocol: Document 02/02/18 14:30 DCW (Rec: 02/02/18 15:05 DCW [id number]) OP Gait Assessment Comments Gait Comments Pt continues to demonstrate steppage gait when not wearing AFO due to foot drop, however dorsiflexion strength improving, and pt able to spend more time at home out of his AFO. Stair Climbing Evaluation Evaluation Level of Assist On Stairs Independent Devices Stair Climbing Assistive Devices None Technique/Endurance Stair Climbing Direction Ascend and Descend Stair Climbing Technique Step Over Step PT-OP-H Neuro Start: 09/03/17 06:11 Freq: Status: Active Protocol: Document 09/02/17 09:45 AMB (Rec: 09/03/17 09:28 AMB [email or web address]) Sensation Evaluation Location Details Right Leg Light Touch Intact/Normal Comments Summary Comments Pt able to distiguish light touch R vs L with eyes closed 100%, however pt subjectively notices diminished sensation distal to the knee. Deep Tendon Reflex & Clonus Assessment Ankle Clonus Right Clonus Assessment Absent Muscle Tone Tone Assessment Right Lower Extremity Flexor Tone Description Normal Extensor Tone Description Normal PT-OP-M Strength Start: 09/03/17 06:11 Freq: Status: Active Protocol: Document 02/02/18 14:30 DCW (Rec: 02/02/18 15:05 DCW [id number]) Hip Strength Hip Manual Muscle Testing Right Flexion (L2) 4+ Good+ Extension (S1) 5 Normal Abduction 5 Normal Knee Strength Knee Manual Muscle Testing Right Flexion (S2) 4 Good Extension (L3) 4 Good Ankle/Foot Strength Ankle and Foot Manual Muscle Testing Right Dorsiflexion (L4) 4- Good- Plantarflexion (S1) 4+ Good+ PT-OP-Q Treatments Start: 09/03/17 06:11 Freq: Status: Active Protocol: Document 02/02/18 14:30 DCW (Rec: 02/02/18 15:15 DCW [id number]) Therapeutic Exercises Sitting Exercises 3 Sitting Exercise Name Dorsiflexion Side right Resistance Lv 3 Equipment Used T-band Neuro Re-Education Treatment Balance Activities 1 Details SLS PT-OP-T Assessment and Plan Start: 09/03/17 06:11 Freq: Status: Active Protocol: Document 02/02/18 14:30 DCW (Rec: 02/02/18 15:15 DCW [id number]) Physical Therapy Assessment Impairments Impairments Balance Gait Sensation Strength Goals 4 Impairment Gait Short Term Goal (STG) Pt to ambulate without AFO with no steppage gait to clear foot. STG Duration 4 weeks 3 Impairment Balance Short Term Goal (STG) The patient will show improved balance by performing single leg stance for 15 seconds without loss of balance. PROGRESS MADE- 60+ seconds STG Duration MET [facility] Goal (LTG) The patient will show improved balance by being able to get on and off his bicycle without assistance. LTG Duration MET 2 Impairment Strength Short Term Goal (STG) The patient will show improved strength by being able to perform 5 single leg heel raises on the right. PROGRESS - 20 full-range heel raises STG Duration MET Community Arts Worker Goal (LTG) The patient will show improved strength by performing a full squat. LTG Duration MET 1 Impairment Gait Short Term Goal (STG) The patient will ambulate in the community for 30 minutes ( curbs, hills, sand, gravel) without a steppage gait and without loss of balance. PROGRESS - Pt can walk all day with AFO, able to walk 30 + minutes without AFO, no LOB STG Duration MET [facility] Goal (LTG) The patient will ascend and descend a flight of stairs with an alternating step pattern without requiring a railing. LTG Duration MET Progress Towards Goals Progress Towards Goals Progressing Toward Goals Assessment Summary Assessment Pt has made excellent progress recently, meeting all goals. Pt's only real remaining issue is gait dysfunction secondary to right foot drop. Pt agreeable to work hard on this at home, and work on strengthening independently. Pt should return for a follow-up in 3-4 weeks to ensure that progress is being made. Physical Therapy Plan Frequency and Duration Frequency of Treatment Every Other Week Duration of Treatment 8 weeks Plan of Care Start Date 02/02/18 Plan of Care End Date 03/30/18 Therapeutic Interventions Therapeutic Interventions Balance Training Gait Training Home Exercise Program Manual Therapy Neuromuscular Re-education Therapeutic Activities Therapeutic Exercises Modalities Cold Pack/Ice Massage Electric Stimulation Hot Packs Next Visit Focus/Plan Next Visit Plan Dorsiflexion strengthening, Gait training.
--- NOTE | 2018-02-02 15:16 | PT.OPPOC ---
Current Diagnoses Hemiplegia, unspecified affecting right dominant side (02/02/18) Provider Visit Care Team Role Provider Type Michelle Godoy MD Other Providers Physician Specialty: Family Practice Address: [address] [place] [address], [id number] Email: [email or web address] Cole Purcell MD Attending Provider Non-Staff Specialty: [facility] Address: [address] [place] [address], [id number] Email: Plan Of Care PT-OP-T Assessment and Plan Start: 09/03/17 06:11 Freq: Status: Active Protocol: Document 02/02/18 14:30 DCW (Rec: 02/02/18 15:15 DCW [id number]) Physical Therapy Assessment Impairments Impairments Balance Gait Sensation Strength Goals 4 Impairment Gait Short Term Goal (STG) Pt to ambulate without AFO with no steppage gait to clear foot. STG Duration 4 weeks 3 Impairment Balance Short Term Goal (STG) The patient will show improved balance by performing single leg stance for 15 seconds without loss of balance. PROGRESS MADE- 60+ seconds STG Duration MET [facility] Goal (LTG) The patient will show improved balance by being able to get on and off his bicycle without assistance. LTG Duration MET 2 Impairment Strength Short Term Goal (STG) The patient will show improved strength by being able to perform 5 single leg heel raises on the right. PROGRESS - 20 full-range heel raises STG Duration MET [facility] Goal (LTG) The patient will show improved strength by performing a full squat. LTG Duration MET 1 Impairment Gait Short Term Goal (STG) The patient will ambulate in the community for 30 minutes ( curbs, hills, sand, gravel) without a steppage gait and without loss of balance. PROGRESS - Pt can walk all day with AFO, able to walk 30 + minutes without AFO, no LOB STG Duration MET [facility] Goal (LTG) The patient will ascend and descend a flight of stairs with an alternating step pattern without requiring a railing. LTG Duration MET Progress Towards Goals Progress Towards Goals Progressing Toward Goals Assessment Summary Assessment Pt has made excellent progress recently, meeting all goals. Pt's only real remaining issue is gait dysfunction secondary to right foot drop. Pt agreeable to work hard on this at home, and work on strengthening independently. Pt should return for a follow-up in 3-4 weeks to ensure that progress is being made. Physical Therapy Plan Frequency and Duration Frequency of Treatment Every Other Week Duration of Treatment 8 weeks Plan of Care Start Date 02/02/18 Plan of Care End Date 03/30/18 Therapeutic Interventions Therapeutic Interventions Balance Training Gait Training Home Exercise Program Manual Therapy Neuromuscular Re-education Therapeutic Activities Therapeutic Exercises Modalities Cold Pack/Ice Massage Electric Stimulation Hot Packs Next Visit Focus/Plan Next Visit Plan Dorsiflexion strengthening, Gait training. Plan of Care Dates Plan of Care Start Date 02/02/18 Plan of Care End Date 03/30/18 Please Sign and Return: I have reviewed this Plan of Care and certify that the skilled therapy services above are required to meet the patient?s needs. Physician Signature Date Printed Name and Credentials Clinical Instructor Signature Printed Name and Credentials
--- NOTE | 2018-02-22 17:41 | PT.OTN ---
Current Diagnoses Hemiplegia, unspecified affecting right dominant side (02/22/18) Physical Therapy Treatment Note PT-OP-A Visit Information Start: 09/03/17 06:11 Freq: Status: Active Protocol: Document 02/22/18 17:32 DCW (Rec: 02/22/18 17:41 DCW [id number]) Out-Patient Physical Therapy Visit Information Visit Information Visit Type Treatment Note Visit Start Time 14:30 Visit Stop Time 15:15 Total Visit Minutes 45 Visit Number 18 Number of ACUTE CARE ASSISTANT Visits 0 Evaluation Information Evaluation Date 09/02/17 PT-OP-B Current Condition Start: 09/03/17 06:11 Freq: Status: Active Protocol: Document 09/02/17 09:45 AMB (Rec: 09/03/17 06:44 AMB [email or web address]) Current Condition History of Current Condition Onset Date 08/21/17 History of Current Condition The patient reports he had sudden onset R UE and LE weakness on August 21. Since then he feels that his arm is getting better, but his leg continues to be weak; he notices issues with foot drop. 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 His is a RN who does check his blood pressure. It was high while at the hospital, but otherwise has been around 120/80. He does admit to one dizzy spell on August 29 that lasted about a minute. It was in the evening, and he reports spinning and lightheadedness but it has not recurred. Prior Treatments and Tests He went to [facility] and had a CT, which did not show anything. He was transferred to [place] in [place], where he underwent MRI which also did not show anything. He is being followed by a neurologist, who suggested that he had a small CVA. Future Testing and Treatments Planned Lumbar MRI to rule out MS per patient. Treatment Goals Patient/Caregiver Goals Walk normally, ride bikes with his kids, be able to run 1.5 miles by November Prior Functional Status Baseline Function- ADL's Independent Baseline Function- Mobility Independent Baseline Function- Recreation/Hobbies The patient was able to jog and bike without issue Current Functional Impairments (Reported) Functional Limitations- ADL's slower with dressing, unable to stand on one leg to perform lower body dressing Functional Limitations- Mobility/Gait Slow, difficult gait takes mental concentration not to catch his toes, no falls to the ground but many near misses where he catches himself due to catching his toes. Personal Factors Other Personal Factors That May Effect Pt's work schedule limits his Therapy/Recovery availability for appointments to afternoon. Busy working and with family limits his ability to rest. PT-OP-C Subjective Start: 09/03/17 06:11 Freq: Status: Active Protocol: Document 02/22/18 17:32 DCW (Rec: 02/22/18 17:41 DCW [id number]) OP-PT Subjective Patient Comments Patient Comments Pt reports he has been using his AFO minimally, because he is still only wearing it at work, and with multiple half- days and holidays last week, he did not have much time in it at all. PT-OP-D Balance Start: 09/03/17 06:11 Freq: Status: Active Protocol: Document 02/02/18 14:30 DCW (Rec: 02/02/18 15:05 DCW [id number]) Balance Tests Single Limb Standing Single Limb- Right 60+ seconds Single Limb- Left 60+ seconds PT-OP-G Mobility & Gait Start: 09/03/17 06:11 Freq: Status: Active Protocol: Document 02/02/18 14:30 DCW (Rec: 02/02/18 15:05 DCW [id number]) OP Gait Assessment Comments Gait Comments Pt continues to demonstrate steppage gait when not wearing AFO due to foot drop, however dorsiflexion strength improving, and pt able to spend more time at home out of his AFO. Stair Climbing Evaluation Evaluation Level of Assist On Stairs Independent Devices Stair Climbing Assistive Devices None Technique/Endurance Stair Climbing Direction Ascend and Descend Stair Climbing Technique Step Over Step PT-OP-H Neuro Start: 09/03/17 06:11 Freq: Status: Active Protocol: Document 09/02/17 09:45 AMB (Rec: 09/03/17 09:28 AMB [email or web address]) Sensation Evaluation Location Details Right Leg Light Touch Intact/Normal Comments Summary Comments Pt able to distiguish light touch R vs L with eyes closed 100%, however pt subjectively notices diminished sensation distal to the knee. Deep Tendon Reflex & Clonus Assessment Ankle Clonus Right Clonus Assessment Absent Muscle Tone Tone Assessment Right Lower Extremity Flexor Tone Description Normal Extensor Tone Description Normal PT-OP-M Strength Start: 09/03/17 06:11 Freq: Status: Active Protocol: Document 02/02/18 14:30 DCW (Rec: 02/02/18 15:05 DCW [id number]) Hip Strength Hip Manual Muscle Testing Right Flexion (L2) 4+ Good+ Extension (S1) 5 Normal Abduction 5 Normal Knee Strength Knee Manual Muscle Testing Right Flexion (S2) 4 Good Extension (L3) 4 Good Ankle/Foot Strength Ankle and Foot Manual Muscle Testing Right Dorsiflexion (L4) 4- Good- Plantarflexion (S1) 4+ Good+ PT-OP-Q Treatments Start: 09/03/17 06:11 Freq: Status: Active Protocol: Document 02/22/18 17:32 DCW (Rec: 02/22/18 17:41 DCW [id number]) Gym Equipment Shuttle Balance Red Details Double leg and single leg DF/ PF Therapeutic Exercises Sitting Exercises 3 Sitting Exercise Name Dorsiflexion Side right Equipment Used Purple ball Comments Isometric vs ball Therapeutic Activity Therapeutic Activity Single Leg Hopping Name SL hopping with UE support for balance at // bars Forward/Retro Hopping Name Forward/Retro Hopping Comments Focus on equal push-off/ landing Lateral Hopping Name Lateral Hopping Comments onto single leg Hopping Name Hopping straight up/down Comments Focus on equal push-off/ landing Gait Training Gait Activity Jogging Description Various speed jogging along 20 ' PT-OP-T Assessment and Plan Start: 09/03/17 06:11 Freq: Status: Active Protocol: Document 02/22/18 17:32 DCW (Rec: 02/22/18 17:41 DCW [id number]) Physical Therapy Assessment Impairments Impairments Balance Gait Sensation Strength Goals 4 Impairment Gait Short Term Goal (STG) Pt to ambulate without AFO with no steppage gait to clear foot. STG Duration 4 weeks 3 Impairment Balance Short Term Goal (STG) The patient will show improved balance by performing single leg stance for 15 seconds without loss of balance. PROGRESS MADE- 60+ seconds STG Duration MET Fashion Consultant Selling Goal (LTG) The patient will show improved balance by being able to get on and off his bicycle without assistance. LTG Duration MET 2 Impairment Strength Short Term Goal (STG) The patient will show improved strength by being able to perform 5 single leg heel raises on the right. PROGRESS - 20 full-range heel raises STG Duration MET Fashion Consultant Selling Goal (LTG) The patient will show improved strength by performing a full squat. LTG Duration MET 1 Impairment Gait Short Term Goal (STG) The patient will ambulate in the community for 30 minutes ( curbs, hills, sand, gravel) without a steppage gait and without loss of balance. PROGRESS - Pt can walk all day with AFO, able to walk 30 + minutes without AFO, no LOB STG Duration MET Fashion Consultant Selling Goal (LTG) The patient will ascend and descend a flight of stairs with an alternating step pattern without requiring a railing. LTG Duration MET Progress Towards Goals Progress Towards Goals Progressing Toward Goals Assessment Summary Assessment Pt tolerated addition of high level hopping and jogging well with no complaints other than fatigue. Physical Therapy Plan Frequency and Duration Frequency of Treatment Every Other Week Duration of Treatment 8 weeks Plan of Care Start Date 02/02/18 Plan of Care End Date 03/30/18 Therapeutic Interventions Therapeutic Interventions Balance Training Gait Training Home Exercise Program Manual Therapy Neuromuscular Re-education Therapeutic Activities Therapeutic Exercises Modalities Cold Pack/Ice Massage Electric Stimulation Hot Packs Next Visit Focus/Plan Next Visit Plan Dorsiflexion strengthening, Gait training.
--- NOTE | 2018-05-03 11:44 | PT.OPDS ---
Current Diagnoses Hemiplegia, unspecified affecting right dominant side (02/22/18) Provider Visit Care Team Role Provider Type Michelle Godoy MD Other Providers Physician Specialty: Family Practice Address: [address] [place] [address], [id number] Email: [email or web address] Cole Purcell MD Attending Provider Non-Staff Specialty: [facility] Address: [address] [place] [address], [id number] Email: Visit Number Visit Number 18 Discharge Summary PT-OP-B Current Condition Start: 09/03/17 06:11 Freq: Status: Active Protocol: Document 09/02/17 09:45 AMB (Rec: 09/03/17 06:44 AMB [email or web address]) Current Condition History of Current Condition Onset Date 08/21/17 History of Current Condition The patient reports he had sudden onset R UE and LE weakness on August 21. Since then he feels that his arm is getting better, but his leg continues to be weak; he notices issues with foot drop. 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 His is a RN who does check his blood pressure. It was high while at the hospital, but otherwise has been around 120/80. He does admit to one dizzy spell on August 29 that lasted about a minute. It was in the evening, and he reports spinning and lightheadedness but it has not recurred. Prior Treatments and Tests He went to [facility] and had a CT, which did not show anything. He was transferred to [place] in [place], where he underwent MRI which also did not show anything. He is being followed by a neurologist, who suggested that he had a small CVA. Future Testing and Treatments Planned Lumbar MRI to rule out MS per patient. Treatment Goals Patient/Caregiver Goals Walk normally, ride bikes with his kids, be able to run 1.5 miles by November Prior Functional Status Baseline Function- ADL's Independent Baseline Function- Mobility Independent Baseline Function- Recreation/Hobbies The patient was able to jog and bike without issue Current Functional Impairments (Reported) Functional Limitations- ADL's slower with dressing, unable to stand on one leg to perform lower body dressing Functional Limitations- Mobility/Gait Slow, difficult gait takes mental concentration not to catch his toes, no falls to the ground but many near misses where he catches himself due to catching his toes. Personal Factors Other Personal Factors That May Effect Pt's work schedule limits his Therapy/Recovery availability for appointments to afternoon. Busy working and with family limits his ability to rest. PT-OP-C Subjective Start: 09/03/17 06:11 Freq: Status: Active Protocol: Document 02/22/18 17:32 DCW (Rec: 02/22/18 17:41 DCW [id number]) OP-PT Subjective Patient Comments Patient Comments Pt reports he has been using his AFO minimally, because he is still only wearing it at work, and with multiple half- days and holidays last week, he did not have much time in it at all. PT-OP-D Balance Start: 09/03/17 06:11 Freq: Status: Active Protocol: Document 02/02/18 14:30 DCW (Rec: 02/02/18 15:05 DCW [id number]) Balance Tests Single Limb Standing Single Limb- Right 60+ seconds Single Limb- Left 60+ seconds PT-OP-G Mobility & Gait Start: 09/03/17 06:11 Freq: Status: Active Protocol: Document 02/02/18 14:30 DCW (Rec: 02/02/18 15:05 DCW [id number]) OP Gait Assessment Comments Gait Comments Pt continues to demonstrate steppage gait when not wearing AFO due to foot drop, however dorsiflexion strength improving, and pt able to spend more time at home out of his AFO. Stair Climbing Evaluation Evaluation Level of Assist On Stairs Independent Devices Stair Climbing Assistive Devices None Technique/Endurance Stair Climbing Direction Ascend and Descend Stair Climbing Technique Step Over Step PT-OP-H Neuro Start: 09/03/17 06:11 Freq: Status: Active Protocol: Document 09/02/17 09:45 AMB (Rec: 09/03/17 09:28 AMB [email or web address]) Sensation Evaluation Location Details Right Leg Light Touch Intact/Normal Comments Summary Comments Pt able to distiguish light touch R vs L with eyes closed 100%, however pt subjectively notices diminished sensation distal to the knee. Deep Tendon Reflex & Clonus Assessment Ankle Clonus Right Clonus Assessment Absent Muscle Tone Tone Assessment Right Lower Extremity Flexor Tone Description Normal Extensor Tone Description Normal PT-OP-M Strength Start: 09/03/17 06:11 Freq: Status: Active Protocol: Document 02/02/18 14:30 DCW (Rec: 02/02/18 15:05 DCW [id number]) Hip Strength Hip Manual Muscle Testing Right Flexion (L2) 4+ Good+ Extension (S1) 5 Normal Abduction 5 Normal Knee Strength Knee Manual Muscle Testing Right Flexion (S2) 4 Good Extension (L3) 4 Good Ankle/Foot Strength Ankle and Foot Manual Muscle Testing Right Dorsiflexion (L4) 4- Good- Plantarflexion (S1) 4+ Good+ PT-OP-T Assessment and Plan Start: 09/03/17 06:11 Freq: Status: Active Protocol: Document 05/03/18 11:43 DCW (Rec: 05/03/18 11:44 DCW [id number]) Physical Therapy Assessment Goals 4 Impairment Gait Short Term Goal (STG) Pt to ambulate without AFO with no steppage gait to clear foot. STG Duration 4 weeks 3 Impairment Balance Short Term Goal (STG) The patient will show improved balance by performing single leg stance for 15 seconds without loss of balance. PROGRESS MADE- 60+ seconds STG Duration MET Admitting Officer Goal (LTG) The patient will show improved balance by being able to get on and off his bicycle without assistance. LTG Duration MET 2 Impairment Strength Short Term Goal (STG) The patient will show improved strength by being able to perform 5 single leg heel raises on the right. PROGRESS - 20 full-range heel raises STG Duration MET Long-Term Goal (LTG) The patient will show improved strength by performing a full squat. LTG Duration MET 1 Impairment Gait Short Term Goal (STG) The patient will ambulate in the community for 30 minutes ( curbs, hills, sand, gravel) without a steppage gait and without loss of balance. PROGRESS - Pt can walk all day with AFO, able to walk 30 + minutes without AFO, no LOB STG Duration MET Admitting Officer Goal (LTG) The patient will ascend and descend a flight of stairs with an alternating step pattern without requiring a railing. LTG Duration MET Assessment Summary Assessment Pt was phoned last week, and a message was left requesting pt call for follow-up visit if needed. Pt has not returned the call, and at this time, has not been seen in more than two months. Pt will be discharged from skilled therapy, and will require a new referral in order to return. Physical Therapy Plan Discharge Physical Therapy Discharge Reasons No Longer Attending PT
== END 2018-06-14 13:51 ==
LOC: PHYS 14:30
PROVIDERS: Visit Provider General Practice
DX: G81.91 Hemiplegia, unspecified affecting right dominant side (principal)
CPT/HCPCS: 97110; 97112; 97116; 97162

== ENCOUNTER → 2018-07-02 12:26 | Outpatient (CLI) | payer OTHER, SELFPAY ==
--- NOTE | 2018-07-02 | DI.MRI.S_ITS ---
PROCEDURE: MR ELBOW RT WO CON INDICATIONS: ELBOW PAIN TECHNIQUE: Noncontrast coronal proton density fast spin echo and T2 fast spin echo with fat saturation, axial and sagittal T1 spin echo and T2 fast spin echo with fat saturation through the elbow. COMPARISON: None. FINDINGS: Image quality: Study is slightly degraded secondary to patient motion.. Lateral structures: The lateral ulnar collateral ligament and radial collateral ligament both appear intact. The overlying common extensor tendon also appears slightly thickened with heterogeneous fluid signal near its insertion on lateral epicondyles suggestive of tendinosis Medial structures: The ulnar collateral ligament appears intact. The overlying common flexor tendon appears normal. The ulnar nerve appears normal in size and signal within the cubital tunnel. Anterior structures: The biceps and brachialis tendons both appear intact as they insert onto the proximal radius and ulna, respectively. No bicipitoradial bursal fluid. The median and radial neurovascular bundles appear normal; no focal muscle atrophy to suggest nerve impingement. Posterior structures: The conjoint triceps tendon from the long and lateral heads appears slightly thickened with heterogeneous fluid signal concerning for tendinosis and low-grade partial-thickness tear at its insertion posterior olecranon. The medial head of the triceps tendon appears normal, with direct muscle insertion onto the olecranon. No olecranon bursal fluid. Bone and cartilage: No bone marrow contusions or fractures. No osteochondral injuries. IMPRESSION: #1. Finding is suggestive of lateral epicondylitis with tendinosis/low-grade intrasubstance partial-thickness tear involving proximal common extensor tendon origin. #2. Possible low-grade tendinosis/partial thickness involving distal triceps tendon at its posterior olecranon insertion. #3. Medial and lateral collateral ligaments are grossly intact. No fracture or dislocation. No marrow edema. Dictated by: Gio Vazquez M.D. on 07/04/2018 at 10:58 Approved by: Gio Vazquez M.D. on 07/04/2018 at 11:27
--- NOTE | 2018-07-02 | DI.MRI.S_ITS ---
PROCEDURE: MR CERVICAL SPINE WO CON INDICATIONS: ANESTHESIA OF SKIN PAIN IN RIGHT ELBOW TECHNIQUE: Noncontrast sagittal T1 spin echo and T2 fast spin echo, sagittal STIR, foraminal oblique sagittal T2 fast spin echo, and axial gradient echo or T2 fast spin echo through the cervical spine. COMPARISON: None. FINDINGS: Image quality: Excellent. Alignment and Curvature: There is mild straightening of normal cervical curvature. Trace retrolisthesis is present of C6 on C7. Bone Marrow: Marrow demonstrates normal overall signal. Spinal Cord: Visualized spinal cord has normal size and signal. No cerebellar tonsillar herniation. Paraspinous Soft Tissues: No paravertebral masses. Prevertebral soft tissues are normal in thickness. Discs: Mild/moderate desiccation is present C5-6. C2-C3: Minimal disc bulge without spinal stenosis. Minimal right foraminal narrowing. C3-C4: Minimal disc bulge without spinal stenosis. No foraminal narrowing. C4-C5: Minimal disc bulge without spinal stenosis. No foraminal narrowing. C5-C6: Mild disc bulge without spinal stenosis. Minimal right foraminal narrowing. C6-C7: Minimal disc bulge with superimposed small posterior central protrusion. No spinal stenosis. Minimal left foraminal narrowing. C7-T1: No disc bulge, spinal stenosis or foraminal narrowing. IMPRESSION: 1. Early degenerative changes to the sternum minimal to mild disc bulge with small superimposed protrusion at C6-7. 2. Minimal multilevel foraminal narrowing. Dictated by: Thalia Foy M.D. on 07/04/2018 at 11:48 Approved by: Thalia Foy M.D. on 07/04/2018 at 13:46
== END ==
PROVIDERS: PCP General Practice; Visit Provider Orthopaedic Surgery
DX: M25.521 Pain in right elbow (principal); M50.223 Other cervical disc displacement at C6-C7 level; R20.0 Anesthesia of skin
CPT/HCPCS: 72141; 73221

== ENCOUNTER 2022-04-21 20:35 | Emergency (ER) | payer OTHER, SELFPAY ==
[2022-04-21 20:44] VITALS: BP 149/86; PULSE 81; RESP 17; TEMP 36.6; O2SAT 97; BMI 34.0
[2022-04-21 22:06] VITALS: PULSE 69; O2SAT 95
[2022-04-21 22:07] VITALS: BP 135/77; PULSE 69; O2SAT 96
--- NOTE | 2022-04-21 22:16 | PC.NURSE ---
Reports stroke in 2018 with residual right foot drop. Pt reports foot drop worse today with the pain. Right foot painful to touch when palpating pulse. States that the pain feels like his left elbow did before he had surgical procedure to relieve pressure from ulner nerve.
[2022-04-21 22:30] VITALS: BP 124/74; PULSE 65; RESP 18; O2SAT 95
[2022-04-21 23:00] VITALS: BP 126/83; PULSE 63; RESP 18; O2SAT 96
[2022-04-21 23:30] VITALS: BP 113/79; PULSE 65; RESP 15; O2SAT 95
[2022-04-22] VITALS (8 sets, daily range): BP systolic 105–127; BP diastolic 72–104; PULSE 58–66; RESP 9–26; O2SAT 94–97
--- NOTE | 2022-04-22 02:14 | ED_ITS ---
HPI - Extremity Problem General Chief complaint: Extremity Problem,Nontraumatic Stated complaint: rt sided leg pain, hx of cva Time Seen by Provider: 04/22/22 02:14 Source: patient Mode of arrival: Ambulatory History of Present Illness HPI Narrative: 41-year-old gentleman with a history of stroke affecting his right side currently on aspirin with essentially complete recovery of symptoms presents with acute right sciatic type pain. Describes taking a shower, doing some gentle housework including laundry bending lifting twisting and turning did not notice any specific injury but over the course of the day began having increasing radicular type pain. Not complaining of back pain. He states pain starts mostly deep in the right buttock goes down the posterior thigh wraps around the instep of his foot and out to the tip of his toe. Is able to walk but it is painful. He is not having any perineal numbness and no urinary symptoms either hesitancy or incontinence. He is not recently had any spinal surgery, does not use injection drugs no recent trauma. He does not have any significant red flags for complicated back pain. Related Data Home Medications Medication Instructions Recorded Confirmed Fexofenadine Hydrochloride 180 mg PO Q DAY ##0 08/21/08 (Dahlia) CLOBETASOL PROPIONATE (TEMOVATE) ##0 04/29/12 NYSTATIN/TRIAMCINOLONE ACETONI ##0 04/29/12 (Nystatin-Triamcinolone Cream) aspirin 81 mg capsule 81 mg PO DAILY 04/21/22 04/21/22 atorvastatin 40 mg tablet mg 04/21/22 Previous Rx's Medication Instructions Recorded dexamethasone 4 mg tablet 10 mg PO DAILY #5 tabs 04/22/22 oxycodone-acetaminophen 5 mg-325 1 tab PO Q6H PRN pain #14 tabs 04/22/22 mg tablet Allergies Allergy/AdvReac Type Severity Reaction Status Date / Time pseudoephedrine Allergy Unknown RASH Verified 04/21/22 20:47 [From [facility]] Review of Systems Review of Systems Narrative: Notes a slight right-sided foot drop if he is particularly tired or has had a couple of drinks. No recent fever cough or chills. Remainder of complete review of systems is otherwise unremarkable except for that included in the HPI. Patient History Medical History (Updated 04/22/22 @ 02:37 by Hailey Esparza MD) CVA (cerebral vascular accident) Environmental allergies Exercise-induced asthma Social History Smoking Status: Former smoker Smoking Status: Former smoker tobacco type: smokeless tobacco alcohol intake frequency: a few times a week Substance Use Type: marijuana Exam Initial Vital Signs Initial Vital Signs: Vital Signs Temperature 98 F 04/21/22 20:44 Pulse Rate 81 04/21/22 20:44 Respiratory Rate 17 04/21/22 20:44 Blood Pressure 149/86 H 04/21/22 20:44 Pulse Oximetry 97 04/21/22 20:44 Oxygen Delivery Method 04/21/22 20:44 General: Healthy appearing, in moderate distress. Able to give a complete and coherent history. Well-nourished well-developed HEENT: Moist mucous membranes, normal sclera with reactive pupils, Respiratory: Lungs are clear to auscultation, no wheezing no rales no rhonchi. Full and symmetrical air movement Cardiac: Regular rate and rhythm no murmurs no bruits Abdomen: Soft, nontender, good bowel tones, no flank pain Skin: Warm and dry, no rashes Spine: No point tenderness along the thoracic or lumbar spine. He is tender into the deep buttock on the left. No bruising or deep hematoma palpated in the area of concern. No redness or warmth along the spine. Neurologic: Decreased sensation in an S1 distribution on the right side with out weakness appreciated Extremities: No trauma, well perfused Psych: Cooperative, appropriate insight and affect Course Orders Ordered: Discontinued Medications Dexamethasone (Dexamethasone 4 Mg Tablet) 12 mg PO NOW ONE Stop: 04/22/22 02:23 Last Admin: 04/22/22 02:35 Dose: 12 mg Documented By: SUE Ketorolac Tromethamine (Ketorolac 30 Mg/Ml Vial) 30 mg IM NOW ONE Stop: 04/22/22 02:23 Last Admin: 04/22/22 02:35 Dose: 30 mg Documented By: SUE Oxycodone/Acetaminophen (Oxycodone/Acetaminophen 5/325 Tablet) 2 tab PO NOW ONE Stop: 04/22/22 02:23 Last Admin: 04/22/22 02:35 Dose: 2 tab Documented By: SUE Vital Signs Vital signs: Vital Signs - 8 hr 04/21/22 23:00 04/21/22 23:00 04/21/22 23:30 Pulse Rate 63 Respiratory Rate 18 Blood Pressure 126/83 113/79 Pulse Oximetry 96 Oxygen Delivery Method 04/21/22 23:30 04/22/22 00:00 04/22/22 00:00 Pulse Rate 65 63 Respiratory Rate 15 26 H Blood Pressure 127/84 Pulse Oximetry 95 96 Oxygen Delivery Method 04/22/22 00:30 04/22/22 00:31 04/22/22 00:31 Pulse Rate 62 60 Respiratory Rate 18 17 Blood Pressure 127/104 H Pulse Oximetry 94 96 Oxygen Delivery Method 04/22/22 01:00 04/22/22 01:00 04/22/22 01:30 Pulse Rate 61 Respiratory Rate 18 Blood Pressure 112/78 119/75 Pulse Oximetry 94 Oxygen Delivery Method Room Air 04/22/22 01:30 04/22/22 02:00 04/22/22 02:00 Pulse Rate 61 58 L Respiratory Rate 18 15 Blood Pressure 117/72 Pulse Oximetry 96 96 Oxygen Delivery Method 04/22/22 02:30 04/22/22 02:31 04/22/22 02:31 Pulse Rate 66 63 Respiratory Rate 19 9 L Blood Pressure 105/79 Pulse Oximetry 97 97 Oxygen Delivery Method Room Air MDM - Extremity (Nontraumatic) MDM Narrative Medical decision making narrative: CC: Acute right radicular back pain Complicating co-morbidities: Prior history of stroke, no prior back injuries no recent spine procedures or instrumentation Corroborating data: Data collected from: patient, Differential considered: Trauma, tumor, hematoma into the buttock, epidural abscess, epidural hematoma, musculoskeletal back pain, acute low back strain with radicular findings Exam documented above, pertinent findings include: S1 radicular pain right leg Treatments: Intramuscular Toradol, oral dexamethasone, oral narcotic Re-evaluations: Slight improvement and pain is now tolerable to the point that he feels that discharge home is safe. Discussion: I believe this is simply radicular back pain despite the lack of obvious trauma. There is no evidence of ?red flags? to suggest that additional workup or more pathologic finding is present. He will be discharged home with 2 additional days of dexamethasone, recommendations for ibuprofen and Tylenol and oxycodone as needed for severe pain. Recommended ice to the area and follow up with his primary care physician. Clearly reviewed signs of worsening or concerning findings including infection and weakness as well as any change to bowel or bladder habits. Questions are answered he is safe for discharge home Disposition: see below, along with detailed discharge instructions that have been reviewed with patient as well as indications for ED re-evaluation and additional outpatient follow up Discharge Plan Departure Patient Disposition: Home Clinical Impression: Acute radicular low back pain Instructions: DI for Sciatica Activity Restrictions/Additional Instructions: I am so sorry you are suffering with this back pain. Your exam suggests this is acute musculoskeletal back pain that is pinching your S1 nerve that goes down the back of your leg. There is no indication that there is infection, acute injury that would require further intervention or alternate findings that would need additional workup at this time. You were given a shot of Toradol, oral dexamethasone (steroid) and Percocet to help with the acute pain in the emergency department Using 400 mg of ibuprofen (2 mgam-hqe-bhukcva pills) and 1 Tylenol every 6 hours can be very helpful in controlling pain. I am going to give you a prescription for 10 mg of dexamethasone to take on the and the . I am also going to give you a brief prescription for Percocet, a narcotic, to treat severe pain not treated with the above medications. Percocet can cause constipation and you should not drive or do cognitively challenging tasks while you are taking Percocet. If you develop a fever, new symptoms, weakness rather than just numbness or pain in the leg or notice that your having trouble going to the bathroom either leaking urine or stool or unable to pass urine or stool you do need to return to the emergency department for further evaluation. I would recommend you follow-up with your primary care physician. Prescriptions: New dexamethasone 4 mg tablet 10 mg PO DAILY Qty: 5 0RF oxycodone-acetaminophen 5-325 mg tablet 1 tab PO Q6H PRN (Reason: pain) Qty: 14 0RF No Action Fexofenadine Hydrochloride (Dahlia) 180 mg PO Q DAY Qty: 0 CLOBETASOL PROPIONATE (TEMOVATE) Qty: 0 NYSTATIN/TRIAMCINOLONE ACETONI (Nystatin-Triamcinolone Cream) Qty: 0 atorvastatin 40 mg tablet aspirin 81 mg Capsule 81 mg PO DAILY Referrals: Cole Purcell MD [Primary Care Provider] - Stand Alone Forms: Patient Portal/API
[2022-04-22] MEDS: dexAMETHasone 4 MG TABLET 12 MG PO (02:35)
[2022-04-22] MEDS: OXYCODONE/ACETAMINOPHEN 5/325 TABLET 2 TAB PO (02:35)
[2022-04-22] MEDS: KETOROLAC 30 MG/ML VIAL IM (02:35)
== END 2022-04-22 02:50 | disposition home or self-care (01) ==
PROVIDERS: Emergency Provider Emergency Medicine; PCP General Practice
DX: M54.59 Other low back pain (principal)
CPT/HCPCS: 96372; 99283; J1885